=== PATIENT | male | born 1940 | race Caucasian/White ===

== ENCOUNTER 2021-07-21 05:52 | Emergency (ER) | payer MEDICARE, OTHER, SELFPAY ==
[2021-07-21 05:58] VITALS: PULSE 109; RESP 18; TEMP 36.6; O2SAT 95; BMI 25.8
[2021-07-21 06:27] VITALS: BP 182/113; PULSE 103; RESP 17; O2SAT 95
--- NOTE | 2021-07-21 06:29 | ECG_ITS ---
[facility] Test Date: 2021-07-21 Pat Name: Kelton Tolbert Department: Room: Gender: Male Supervisor Plasma: : 1940 Requested By: Elias Segovia Order Number: [id number] Ashley MD: Sung Walker M.D. Measurements Intervals [place] Rate: 92 P: 38 [place]: 184 QRS: -44 QRSD: 86 T: 88 QT: 374 QTc: 463 Interpretive Statements SINUS RHYTHM POSSIBLE LEFT ATRIAL ENLARGEMENT [-0.1mV P-WAVE IN V1/V2] LEFT AXIS DEVIATION [QRS AXIS < -30] LEFT VENTRICULAR HYPERTROPHY AND ST-T CHANGE [VOLTAGE CRITERIA PLUS ST/T ABNORMALITY] POSSIBLE ANTERIOR MYOCARDIAL INFARCTION , OF INDETERMINATE AGE [30 ms Q WAVE IN V3/V4, OR R < 0.2 mV IN V4] Compared to ECG 09/21/2014 20:10:44 ST (T wave) deviation now present Myocardial infarct finding now present Ventricular premature complex(es) no longer present First degree AV block no longer present T-wave abnormality no longer present Electronically Signed On 07-22-2021 7:38:26 WRAPPER LEAF INSPECTOR by Sung Walker M.D. [id number]
--- NOTE | 2021-07-21 06:29 | XRR_ITS ---
PROCEDURE INFORMATION: Exam: XR Chest Exam date and time: 07/21/2021 6:29 AM Age: 81 years old Clinical indication: Other: Mhe; Screening TECHNIQUE: Imaging protocol: XR of the chest. Views: 1 view. COMPARISON: CR Chest 2 views* [id number] 09/22/2014 7:57 AM FINDINGS: Lungs: Mild interstitial prominence without acute airspace disease. Pleural spaces: No pleural effusion. Heart/Mediastinum: No cardiomegaly. Vasculature: Ectasia of the thoracic aorta. Bones/joints: Degenerative change. XR/XR chest 1V portable [id number] IMPRESSION: No acute airspace or pleural disease.
--- NOTE | 2021-07-21 06:35 | W.ED.AMS ---
HPI - Altered Mental Status General: Chief Complaint: Altered Mental Status Stated Complaint: MHE Time Seen by Provider: 07/21/21 05:54 History of Present Illness: HPI narrative: 81-year-old male presents emergency room with [facility]. Patient was found [place]t[address]road he is having auditory and visual hallucinations about seeing cows and building is talking to someone that was not present. Is confused and disoriented did unable to answer questions about time place or person correctly. He has some tangential thinking. Denies any suicidal homicidal ideation. No evidence of trauma he denies striking his head he denies loss consciousness denies needing to harm himself or anyone else. He states he lives at home with the help of some family that stops by occasionally. MD complaint: altered mental status and confusion Onset (ago): unknown Consistency of symptoms: Getting Worse Associated symptoms: Reports auditory hallucinations, visual hallucinations and delusions; Deny depression, homicidal ideation, racing thoughts or suicidal ideation Review of Systems Const: Denies: fever(s), chills, body aches, change in appetite, fatigue or malaise ENMT: Denies: throat pain, ear or mastoid pain, nasal discharge or nasal congestion Card: Denies: chest pain, edema, dyspnea on exertion or orthopnea Resp: Denies: dyspnea, productive cough or non-productive cough GI: Denies: abdominal pain, nausea, vomiting, hematemesis, coffee ground emesis, diarrhea, constipation, bloating, hematochezia or melena : Denies: flank pain, dysuria, urinary frequency or urinary urgency Skin/Breast: Denies: rash or pruritus Psych: Reports: visual hallucinations and auditory hallucinations; Denies: depression, suicidal ideation or homicidal ideation Physical Exam Const: COMMON NORMALS: no acute distress GENERAL APPEARANCE: cooperative and comfortable ORIENTATION/CONSCIOUSNESS: Yes awake, Yes oriented to person, Yes oriented to place and Yes oriented to time HENMT: COMMON NORMALS: normocephalic, atraumatic, hearing grossly normal bilaterally, external ears normal, EAC's normal, TM's normal bilaterally, Normal nasal mucous membranes and turbinates present, moist oral mucous membranes and oropharynx normal HEAD & SCALP: normocephalic and atraumatic NOSE: Normal nasal mucous membranes and turbinates present EXTERNAL EAR: Yes external ears normal EXTERNAL AUDITORY CANAL: EAC's normal TYMPANIC MEMBRANE: TM's normal bilaterally Eye: COMMON NORMALS: Equal, round and reactive pupils present, EOMs intact bilaterally, conjunctivae normal and no scleral icterus CONJUNCTIVA: Yes conjunctivae normal PUPIL: Yes Equal, round and reactive pupils present Neck/C-Spine: COMMON NORMALS: full ROM, no lymphadenopathy, supple and no JVD Lymph: LYMPHATIC: no lymphadenopathy noted and no lymphedema noted Resp: COMMON NORMALS: normal respiratory effort, No retractions, No use of accessory muscles and clear to auscultation bilaterally AUSCULTATION: clear to auscultation bilaterally Cardio: COMMON NORMALS: no JVD, regular rate, regular rhythm and No murmurs present (Cardio) RATE: regular rate RHYTHM: regular rhythm GI: COMMON NORMALS: Soft to palpation and No hepatosplenomegaly present AUSCULTATION: Yes normoactive bowel sounds PALPATION: Yes Soft to palpation, No Tenderness to palpation present (GI), No Guarding due to palpation present (GI) and Yes No hepatosplenomegaly present Extremity: COMMON NORMALS: normal to inspection, capillary refill normal, no clubbing, cyanosis or edema, no calf tenderness and no pedal edema Neuro: SENSORIUM/ORIENTATION: Yes oriented to person, Yes oriented to place and Yes oriented to time Psych: THOUGHT CONTENT: Yes delusions Skin: COMMON NORMALS: no rashes or lesions noted GENERAL SKIN EXAM: no rashes or lesions noted Course Vital Signs: Vital signs: Vital Signs Temperature 98.2 F 07/21/21 07:25 Pulse Rate 75 07/21/21 13:28 Respiratory Rate 18 07/21/21 13:28 Blood Pressure 150/85 07/21/21 13:28 Pulse Oximetry 96 07/21/21 13:28 MDM - Altered Mental Status MDM Narrative: Medical decision making narrative: Patient has some underlying dementia but acutely is having auditory and visual hallucinations on a geriatric psychiatric care. With me arrangements for transfer Dr. Figueroa is receiving. In addition to this he does have what should be controlled. For now recommend starting on Toprol-XL 25 p.o. daily and amlodipine 5 p.o. daily should have follow-up at a later date with primary care doctor to further adjust blood pressure medications. Lab Data: Labs: Lab Results 07/21/21 07/21/21 07/21/21 06:05 06:05 06:05 WBC 15.7 10^3/uL H 10 ^3/uL (4.0-10.0) RBC 5.05 10^6/uL 10^6 /uL (4.1-5.3) Hgb 15.3 g/dL g/dL (11.7-16.6) Hct 46.6 % % (42.0-52.0) MCV 92.3 fl fl (80-94) MCH 30.3 pg pg (28.0-34.0) MCHC 32.8 g/dL g/dL (30.0-36.0) RDW 12.3 % % (12.1-15.1) Plt Count 281 10^3/cmm 10^3 /cmm (130-400) MPV 10.5 fL H fL (7.4-10.4) Neut % (Auto) 83.9 % % Lymph % (Auto) 8.8 % % [place] % (Auto) 6.2 % % Eos % (Auto) 0.3 % % Baso % (Auto) 0.3 % % Neut # (Auto) 13.15 10^3/uL H 1 0^3/uL (1.8-7.7) Lymph # (Auto) 1.4 10^3/uL 10^3/ uL (0.8-4.8) [place] # (Auto) 1.0 10^3/uL H 10^ 3/uL (0.2-0.9) Eos # (Auto) 0.0 10^3/uL 10^3/ uL (0.0-0.8) Baso # (Auto) 0.0 10^3/uL 10^3/ uL (0.0-0.1) Nucleated RBC % (a uto) 0 % % Nucleated RBCs # 0.0 /100WBC /100W BC Sodium 139 mmol/L mmol/L (136-145) Potassium 3.5 mmol/L mmol/L (3.5-5.1) Chloride 103 mmol/L mmol/L (98-107) Carbon Dioxide 27 mmol/L mmol/L (22-29) Anion Gap 12.5 (5-19) BUN 18 mg/dL mg/dL (8-23) Creatinine 1.2 mg/dL mg/dL (0.7-1.2) GFR Calculation Not Reportable Glucose 142 mg/dL H mg/dL (65-115) Calculated Osmolal ity 292 mOsm/kg mOsm/ kg (285-295) Calcium 9.4 mg/dL mg/dL (8.5-10.5) Total Bilirubin 0.5 mg/dL mg/dL (0.15-1.2) AST 30 U/L U/L (0-40) ALT 14 U/L U/L (0-41) Alkaline Phosphata se 91 IU/L IU/L (40-130) Total Protein 7.6 g/dL g/dL (6.6-8.7) Albumin 4.4 g/dL g/dL (3.5-5.2) Globulin 3.2 g/dL g/dL (1.3-4.6) TSH 2.38 uIU/mL uIU/m L Cancelled (0.27-4.20) Free T4 0.96 ng/dL ng/dL (0.82-1.77) Free T3 Urine Color Urine Appearance Urine pH Ur Specific Gravit y Urine Protein Urine Glucose (UA) Urine Ketones Urine Blood Urine Nitrate Urine Bilirubin Urine Urobilinogen Ur Leukocyte Cortney ase Urine RBC Urine WBC Ur Squamous Epith Cells Amorphous Sediment Urine Bacteria Salicylates < 0.3 mg/dL L mg/ dL (3-10) Urine Opiates Scre en Acetaminophen < 5.0 ug/mL L ug/ mL (10-30) Ur Barbiturates Sc reen Ur Phencyclidine S crn Ur Amphetamines Sc reen U Benzodiazepines Scrn Urine Cocaine Scre en U Marijuana (THC) Screen Ethyl Alcohol < 10 mg/dL mg/dL (0-10) Nasal/Oral COVID-1 9 PCR SARS-CoV-2 Ag (Rap id) 07/21/21 07/21/21 07/21/21 06:05 06:50 06:57 WBC RBC Hgb Hct MCV MCH MCHC RDW Plt Count MPV Neut % (Auto) Lymph % (Auto) [place] % (Auto) Eos % (Auto) Baso % (Auto) Neut # (Auto) Lymph # (Auto) [place] # (Auto) Eos # (Auto) Baso # (Auto) Nucleated RBC % (a uto) Nucleated RBCs # Sodium Potassium Chloride Carbon Dioxide Anion Gap BUN Creatinine GFR Calculation Glucose Calculated Osmolal ity Calcium Total Bilirubin AST ALT Alkaline Phosphata se Total Protein Albumin Globulin TSH Free T4 Free T3 3.1 PG/ML PG/ML (2.0-4.4) Urine Color Urine Appearance Urine pH Ur Specific Gravit y Urine Protein Urine Glucose (UA) Urine Ketones Urine Blood Urine Nitrate Urine Bilirubin Urine Urobilinogen Ur Leukocyte Cortney ase Urine RBC Urine WBC Ur Squamous Epith Cells Amorphous Sediment Urine Bacteria Salicylates Urine Opiates Scre en Acetaminophen Ur Barbiturates Sc reen Ur Phencyclidine S crn Ur Amphetamines Sc reen U Benzodiazepines Scrn Urine Cocaine Scre en U Marijuana (THC) Screen Ethyl Alcohol Nasal/Oral COVID-1 9 PCR Cancelled SARS-CoV-2 Ag (Rap id) Negative (Negative) 07/21/21 07/21/21 07:28 07:28 WBC RBC Hgb Hct MCV MCH MCHC RDW Plt Count MPV Neut % (Auto) Lymph % (Auto) [place] % (Auto) Eos % (Auto) Baso % (Auto) Neut # (Auto) Lymph # (Auto) [place] # (Auto) Eos # (Auto) Baso # (Auto) Nucleated RBC % (a uto) Nucleated RBCs # Sodium Potassium Chloride Carbon Dioxide Anion Gap BUN Creatinine GFR Calculation Glucose Calculated Osmolal ity Calcium Total Bilirubin AST ALT Alkaline Phosphata se Total Protein Albumin Globulin TSH Free T4 Free T3 Urine Color Yellow (Yellow) Urine Appearance Clear (CLEAR) Urine pH 6.5 (5-7) Ur Specific Gravit y 1.010 (1.005-1.030) Urine Protein Neg (Negative) Urine Glucose (UA) Norm (Normal) Urine Ketones Negative (Negative) Urine Blood 2+ H (Negative) Urine Nitrate Negative (Negative) Urine Bilirubin Neg (Negative) Urine Urobilinogen Norm mg/dL mg/dL (Negative) Ur Leukocyte Cortney ase Negative (Negative) Urine RBC 0-4 /hpf H /hpf (0-2) Urine WBC 0-4 /hpf H /hpf (0-5) Ur Squamous Epith Cells None /hpf /hpf (0-5) Amorphous Sediment Not Reportable Urine Bacteria None /hpf /hpf (NONE) Salicylates Urine Opiates Scre en Negative ng/mL ng /mL (Negative) Acetaminophen Ur Barbiturates Sc reen Negative ng/mL ng /mL (Negative) Ur Phencyclidine S crn Negative ng/mL ng /mL (Negative) Ur Amphetamines Sc reen Negative ng/mL ng /mL (Negative) U Benzodiazepines Scrn Negative ng/mL ng /mL (Negative) Urine Cocaine Scre en Negative ng/mL ng /mL (Negative) U Marijuana (THC) Screen Negative ng/mL ng /mL (Negative) Ethyl Alcohol Nasal/Oral COVID-1 9 PCR SARS-CoV-2 Ag (Rap id) Discharge Plan Discharge Patient Disposition: Xfer Psychiatric Hosp Clinical Impression: Delirium due to general medical condition, Dementia, Benign essential HTN Condition: Stable Referrals: Allan Peñaloza DO [Primary Care Provider] - Activity Restrictions/Additional Instructions: Recommend that patient continue on Toprol-XL 25 p.o. daily and amlodipine 5 mg daily for blood pressure control. Coding Level of Care Code ED National Account Manager for Vern Fwcortney Exam Comprehensive
[2021-07-21 06:48] LABS: Basophils % 0.3 %; Eosinophils % 0.3 %; Hematocrit 46.6 % (42.0-52.0); Hemoglobin 15.3 g/dL (11.7-16.6); Lymphocytes # 1.4 10^3/uL (0.8-4.8); Lymphocytes % 8.8 %; Mean Corpuscular HGB Conc 32.8 g/dL (30.0-36.0); Mean Corpuscular Hemoglobin 30.3 pg (28.0-34.0); Mean Corpuscular Volume 92.3 fl (80-94); Mean Platelet Volume 10.5 fL (7.4-10.4); Monocytes % 6.2 %; Neutrophils # 13.15 10^3/uL (1.8-7.7); Neutrophils % 83.9 %; Nucleated Red Blood Cells % 0 %; Platelet Count 281 10^3/cmm (130-400); Red Blood Count 5.05 10^6/uL (4.1-5.3); Red Cell Distribution Width 12.3 % (12.1-15.1); White Blood Count 15.7 10^3/uL (4.0-10.0)
[2021-07-21 07:06] LABS: Alanine Aminotransferase 14 U/L (0-41); Albumin Level 4.4 g/dL (3.5-5.2); Alkaline Phosphatase 91 IU/L (40-130); Anion Gap 12.5 (5-19); Aspartate Amino Transferase 30 U/L (0-40); Blood Urea Nitrogen 18 mg/dL (8-23); Calcium 9.4 mg/dL (8.5-10.5); Carbon Dioxide 27 mmol/L (22-29); Chloride 103 mmol/L (98-107); Globulin 3.2 g/dL (1.3-4.6); Glucose 142 mg/dL (65-115); Osmolality Calculated 292 mOsm/kg (285-295); Potassium 3.5 mmol/L (3.5-5.1); Sodium 139 mmol/L (136-145); Thyroid Stimulating Hormone 2.38 uIU/mL (0.27-4.20); Total Bilirubin 0.5 mg/dL (0.15-1.2); Total Protein 7.6 g/dL (6.6-8.7)
[2021-07-21 07:07] LABS: Acetaminophen < 5.0 ug/mL (10-30); Alcohol Level < 10 mg/dL (0-10); Salicylate < 0.3 mg/dL (3-10)
[2021-07-21 07:25] VITALS: BP 171/102; PULSE 102; RESP 18; TEMP 36.8; O2SAT 94
[2021-07-21 07:45] LABS: Amphetamines Screen Urine Negative (Negative); Barbiturates Screen Urine Negative (Negative); Benzodiazepines Screen Urine Negative (Negative); Cocaine Screen Urine Negative (Negative); Opiate Screen Urine Negative (Negative); PCP Screen Urine Negative (Negative); THC Screen Urine Negative (Negative)
[2021-07-21 07:57] LABS: SARS Covid-2 Antigen Negative (Negative)
--- NOTE | 2021-07-21 08:54 | CT_ITS ---
WS: [id number] CT HEAD NONCONTRAST HISTORY: altered mental status TECHNIQUE: Contiguous axial imaging performed through the brain in 2.5 mm imaging. Bone and soft tiss ue windows. Sagittal and coronal reformats reviewed. All CT scans at [facility] use at least one of these dose optimization techniques: automated exposure control; mA and/or kV adjustment per pa tient size (includes targeted exams where dose is matched to clinical indication); or iterative recon struction. DLP: 872.94 mGy.cm COMPARISON: 09/21/2014 No acute intracranial hemorrhage, midline shift or mass effect. Severe atrophy and severe chronic white matter ischemic changes. There are a few scattered foci withi n the cerebellum which are probably calcifications. No mass effect. Ventricles: Ventricles are prominent which is probably on the basis of central and peripheral atroph y. Scattered calcifications in the cavernous carotid arteries. Paranasal sinuses: As visualized are clear. Mastoid air cells: Well pneumatized. Calvarium and scalp: Skull is intact with no soft tissue edema or swelling. CT/CT head wo con* [id number] IMPRESSION: 1. No acute intracranial hemorrhage or edema. 2. Severe atrophy and chronic microvascular ischemic changes. 3. Ventriculomegaly is likely on the basis of central and peripheral atrophy.
[2021-07-21 09:36] LABS: Free T4 Free Thyroxine 0.96 ng/dL (0.82-1.77)
[2021-07-21 09:58] LABS: T3 Free 3.1 PG/ML (2.0-4.4)
--- NOTE | 2021-07-21 10:38 | DCPLANNER ---
Collin Sue called and stated he is seeking emergency guardianship on pt and would like an update for admission or transfer on pt. This CM called ER and Kay stated pt would be transferred. Collin was called back and a message was left stating pt would be transferred and location unknown at this time.
[2021-07-21] MEDS: metoprolol tartrate 25 mg Tablet PO (11:23)
[2021-07-21] MEDS: amlodipine 5 mg Tablet PO (11:23)
[2021-07-21 11:44] LABS: Add Urine Culture? No; Add Urine Microscopic? YES; Bilirubin Urine Neg (Negative); Blood Urine 2+ (Negative); Glucose Urine UA Norm (Normal); Ketones Urine Negative (Negative); Leukocyte Esterase Urine Negative (Negative); Nitrate Urine Negative (Negative); Protein Urine Neg (Negative); RBC Urine 0-4 /hpf (0-2); Urine Appearance Clear (CLEAR); Urine Color Yellow (Yellow); Urobilinogen Urine Norm (Negative); WBC Urine 0-4 /hpf (0-5); pH Urine 6.5 (5-7)
--- NOTE | 2021-07-21 13:18 | PC.NURSE ---
Called Lexy REYES, [facility], [phone] and gave report.
[2021-07-21 13:28] VITALS: BP 150/85; PULSE 75; RESP 18; O2SAT 96
[2021-07-22 11:51] LABS: Quest SARS-CoV-2 RNA NOT DETECTED (NOT DETECTED)
== END 2021-07-21 14:44 ==
PROVIDERS: Emergency Provider Family Medicine; PCP Internal Medicine
DX: F03.90 Unspecified dementia, unspecified severity, without behavioral disturbance, psychotic disturbance, mood disturbance, and anxiety (principal); F05 Delirium due to known physiological condition; I10 Essential (primary) hypertension; Z20.822 Contact with and (suspected) exposure to COVID-19
CPT/HCPCS: 70450; 71045; 80053; 80306; 80307; 81001; 84439; 84443; 84481; 85025; 87426; 87635; 93005; 99285

== ENCOUNTER 2022-06-12 13:25 | Inpatient (IN) | payer MEDICARE, OTHER, SELFPAY ==
[2022-06-12] VITALS (103 sets, daily range): BP systolic 74–185; BP diastolic 45–116; PULSE 31–111; RESP 11–28; TEMP 36–36.4; O2SAT 83–100
--- NOTE | 2022-06-12 13:48 | CTR_ITS ---
PROCEDURE INFORMATION: Exam: CT Abdomen And Pelvis With Contrast Exam date and time: 06/12/2022 3:25 PM Age: 81 years old Clinical indication: Abdominal pain; Additional info: Rectal bleeding TECHNIQUE: Imaging protocol: Computed tomography of the abdomen and pelvis with contrast. Radiation optimization: All CT scans at this facility use at least one of these dose optimization techniques: automated exposure control; mA and/or kV adjustment per patient size (includes targeted exams where dose is matched to clinical indication); or iterative reconstruction. Contrast material: OMNI 350; Contrast volume: 100 ml; Contrast route: INTRAVENOUS (IV); COMPARISON: CR (CHEST, ) 07/21/2021 6:41 AM RADIATION DOSE METRICS: Total DLP (mGy-cm): 743.43 FINDINGS: Lungs: Minimal linear scarring-atelectasis both lung bases. Heart: Mild cardiomegaly with coronary calcification. Mediastinal space: Small hiatal hernia which may be paraesophageal type. Liver: No enlargement or cirrhosis. Well-defined hypodense lesion in the posterior left lobe, nonspecific and too small to characterize measuring 6 mm. Gallbladder and bile ducts: Normal. No calcified stones. No ductal dilation. Pancreas: Normal. No ductal dilation. Spleen: Normal spleen size with calcified splenic granulomas. A few tiny hypodense splenic lesions are noted measuring a few mm, nonspecific but are most likely benign. Adrenal glands: Normal. No mass. Kidneys and ureters: Tiny hypodense right upper pole renal lesion measuring 3 mm, too small to characterize but is likely simple cyst. Stomach and bowel: Moderate colonic stool burden with no bowel obstruction or pneumatosis. Colonic diverticulosis. Bowel wall assessment is limited due to lack of luminal distention however there is probable short segment of proximal sigmoid mural thickening. Considerations include contraction/spasm/hypertrophy versus nonspecific colitis. Neoplastic disease should also be excluded. Follow-up assessment with luminal bowel contrast or endoscopy should be considered. There is also moderate fluid distention of the rectum with probable minimal wall thickening which may represent mild proctitis and diarrhea. Rectal neoplasm can not be excluded. No obvious imaging signs of acute diverticulitis. Appendix: No evidence of appendicitis. Intraperitoneal space: Unremarkable. No free air. No significant fluid collection. Vasculature: No abdominal aortic aneurysm. Lymph nodes: No enlarged lymph nodes. Urinary bladder: Unremarkable as visualized. Reproductive: Lwnj-mh-kflcnrsl prostate enlargement, with nodular contour. Bones/joints: Multilevel vertebral disc degeneration and endplate osteophytes. Minimal L4-L5 spondylolisthesis, most likely chronic/related to facet arthropathy No acute osseous findings otherwise. Soft tissues: No acute findings. CT/CT abdomen pelvis w con* [id number] IMPRESSION: 1. Colonic diverticulosis without diverticulitis, free air or pneumatosis. However there is probable mural thickening of the proximal sigmoid colon. See discussion above. 2. Fluid distention of rectum with probable mild rectal wall thickening. Please also refer to discussion above. No evidence of bowel obstruction otherwise. Follow-up assessment or endoscopy should be considered for the above findings. 3. Prostate enlargement with nodular contour. 4. Small hiatal hernia and coronary calcification. Other nonacute findings as above. COMMENTS: Consistent with the [employer]'s Incidental Findings Committee white paper (J Am Valente Radiol 2018): Any incidental renal lesion less than 1 cm or classified as too small to characterize, or any incidental cystic renal lesion characterized as simple-appearing, is likely benign. No follow-up imaging is recommended for these lesions per consensus recommendations based on imaging criteria.
--- NOTE | 2022-06-12 13:50 | ED_ITS ---
HPI - GI Bleed General: Chief complaint: GI Bleed Stated complaint: blood in stool Time Seen by Provider: 06/12/22 13:28 Source: patient and old records reviewed Mode of arrival: EMS Limitations: altered mental status (Dementia) History of Present Illness: This patient was transported by EMS from [facility]. [facility] staff noted that he had a bloody bowel movement this morning and therefore directed to the ED. The patient is aware he had a loose stool this morning and but but is not sure where there was blood in his stool or not. He denied any painful bowel movement, constipation, abdominal pain etc. He denied any other concomitant symptoms at this time. He states he feels better today than he did yesterday. He denies any chest pain shortness of breath etc. He is unaware of any similar occurrence of rectal bleeding states he has had an appendectomy in the past. MD complaint: gross hematochezia Associated symptoms: Reports no associated symptoms; Denies abdominal pain, chills, fever(s), headache(s), rash or vomiting Review of Systems Const: Denies: fever(s) or chills Eyes: Denies: change in vision ENMT: Denies: throat pain or odynophagia Card: Denies: chest pain, palpitations or dyspnea on exertion Resp: Denies: productive cough, non-productive cough or wheezing GI: Reports: hematochezia; Denies: abdominal pain or vomiting : Denies: flank pain, difficulty urinating, dysuria or urinary frequency Musc: Denies: neck pain, back pain, extremity pain or extremity swelling Skin/Breast: Denies: rash Neuro: Denies: headache(s), numbness in extremities or weakness in extremities Physical Exam Narrative: EXAM NARRATIVE: Patient makes good eye contact. He is alert and oriented to self. Answers questions readily and generally in a goal-directed fashion. Const: COMMON NORMALS: no acute distress, average body habitus and healthy appearing GENERAL APPEARANCE: comfortable ORIENTATION/CONSCIOUSNESS: Yes awake and Yes oriented to person OTHER: He is unaware of his exact location and is unclear as to the time of the year. HENMT: COMMON NORMALS: normocephalic, atraumatic, Normal nasal mucous membranes and turbinates present, moist oral mucous membranes and oropharynx normal HEAD & SCALP: normocephalic and atraumatic NOSE: Normal nasal mucous membranes and turbinates present Eye: COMMON NORMALS: Equal, round and reactive pupils present, EOMs intact bilaterally, conjunctivae normal and no scleral icterus CONJUNCTIVA: Yes conjunctivae normal PUPIL: Yes Equal, round and reactive pupils present Neck/C-Spine: COMMON NORMALS: full ROM, no lymphadenopathy and no JVD Chest: COMMONS NORMALS: normal inspection of the chest Resp: COMMON NORMALS: normal respiratory effort, No use of accessory muscles and clear to auscultation bilaterally EFFORT & INSPECTION: Yes able to speak in complete sentences AUSCULTATION: clear to auscultation bilaterally Cardio: COMMON NORMALS: no JVD, regular rate, regular rhythm, No murmurs present (Cardio) and Peripheral pulses 2+ throughout RATE: regular rate RHYTHM: regular rhythm PERIPHERAL PULSES: Peripheral pulses 2+ throughout GI: COMMON NORMALS: Normal to inspection, nondistended, normoactive bowel sounds present, Soft to palpation, non-tender, No hepatosplenomegaly present and no masses PALPATION: Yes Soft to palpation and Yes No hepatosplenomegaly present RECTAL EXAM: Yes visual inspection normal, Yes normal sphincter tone, Yes heme positive stool (Some bloody mucus on examining finger as well), No hemorrhoids and No Anal fissure(s) present : COMMON NORMALS: Yes no CVA tenderness BLADDER/KIDNEY EXAM: Yes no CVA tenderness Back/Pelvis: COMMON NORMALS: no CVA tenderness, thoracic and lumbar spine n ormal to inspection, no thoracic nor lumbar tenderness and thoraco-lumbar ROM normal Extremity: COMMON NORMALS: normal to inspection, full ROM, capillary refill normal and no calf tenderness Neuro: COMMON NORMALS: moves all extremities, no focal motor deficits and no sensory deficits noted SENSORIUM/ORIENTATION: Yes oriented to person Psych: COMMON NORMALS: cooperative Skin: COMMON NORMALS: no rashes or lesions noted, turgor normal and no petechiae GENERAL SKIN EXAM: no rashes or lesions noted and turgor normal Course Consultations: Consultation #1: Discussed with Dr. Flores attending hospitalist who agreed to admit patient. Time: 16:25 Consultation #2: Discussed with Dr. Dang computer salesperson retail surgery and endoscopist who agreed to consul t. Time: 16:26 Vital Signs: Vital signs: Vital Signs Pulse Rate 55 L 06/12/22 15:55 Respiratory Rate 13 06/12/22 15:55 Blood Pressure 142/85 06/12/22 15:30 Pulse Oximetry 99 06/12/22 15:55 Oxygen Delivery Me thod 06/12/22 13:32 MDM - GI Bleed Medical Decision Making Long-term care facility resident with single episode of bloody stool today. Clinical examination did not reveal any abdominal pain tenderness or other concerns no peritoneal signs etc. His rectal examination revealed no evidence of fissure or hemorrhoids but was guaiac positive. Imaging showed di verticulosis without any other significant pathology. His hemoglobin appears to be down approximately 4 g from his baseline that we have in the chart but no active bleeding since arrival to the emergency department. He is hemodynamically stable will be admitted to the hospital for continued monitoring serial hemoglobin and surgery consultation. Medical Records I reviewed the patient's medical records. Lab Data I reviewed the patient's lab results. : 06/12/22 14:17 06/12/22 14:17 Radiology Impressions Abdomen/Pelvis CT 06/12/22 13:48 IMPRESSION: 1. Colonic diverticulosis without diverticulitis, free air or pneumatosis. However there is probable mural thickening of the proximal sigmoid colon. See discussion above. 2. Fluid distention of rectum with probable mild rectal wall thickening. Please also refer to discussion above. No evidence of bowel obstruction otherwise. Follow-up assessment or endoscopy should be considered for the above findings. 3. Prostate enlargement with nodular contour. 4. Small hiatal hernia and coronary calcification. Other nonacute findings as above. COMMENTS: Consistent with the [employer]'s Incidental Findings Committee white paper (J Am Valente Radiol 2018): Any incidental renal lesion less than 1 cm or classified as too small to characterize, or any incidental cystic renal lesion characterized as simple-appearing, is likely benign. No follow-up imaging is recommended for these lesions per consensus recommendations based on imaging criteria. Laboratory Results WBC 7.6 10^3/uL (4.0-10.0) 06/12/22 14:17 RBC 3.81 10^6/uL (4.1-5.3) L 06/12/22 14:17 Hgb 11.8 g/dL (11.7-16.6) 06/12/22 14:17 Hct 36.2 % (42.0-52.0) L 06/12/22 14:17 MCV 95.0 fl (80-94) H 11/01/22 14:17 MCH 31.0 pg (28.0-34.0) 06/12/22 14:17 MCHC 32.6 g/dL (30.0-36.0) 06/12/22 14:17 RDW 12.5 % (12.1-15.1) 06/12/22 14:17 Plt Count 231 10^3/cmm (130-400) 06/12/22 14:17 MPV 10.4 fL (7.4-10.4) 06/12/22 14:17 Neut % (Auto) 71.1 % 06/12/22 14:17 Lymph % (Auto) 20.2 % 06/12/22 14:17 [place] % (Auto) 5.8 % 06/12/22 14:17 Eos % (Auto) 1.9 % 06/12/22 14:17 Baso % (Auto) 0.5 % 06/12/22 14:17 Neut # (Auto) 5.37 10^3/uL (1.8-7.7) 06/12/22 14:17 Lymph # (Auto) 1.5 10^3/uL (0.8-4.8) 06/12/22 14:17 [place] # (Auto) 0.4 10^3/uL (0.2-0.9) 06/12/22 14:17 Eos # (Auto) 0.1 10^3/uL (0.0-0.8) 06/12/22 14:17 Baso # (Auto) 0.0 10^3/uL (0.0-0.1) 06/12/22 14:17 Nucleated RBC % (auto) 0 % 06/12/22 14:17 Nucleated RBCs # 0.0 /100WBC 06/12/22 14:17 PT 14.20 SECONDS (12.1-14.9) 06/12/22 14:17 INR 1.07 (0.8-1.2) 06/12/22 14:17 APTT 30.4 SECONDS (23.9-36.7) 06/12/22 14:17 Sodium 137 mmol/L (136-145) 06/12/22 14:17 Potassium 4.3 mmol/L (3.5-5.1) 06/12/22 14:17 Chloride 104 mmol/L (98-107) 06/12/22 14:17 Carbon Dioxide 23 mmol/L (22-29) 06/12/22 14:17 Anion Gap 14.3 (5-19) 06/12/22 14:17 BUN 24 mg/dL (8-23) H 06/12/22 14:17 Creatinine 1.3 mg/dL (0.7-1.2) H 06/12/22 14:17 GFR Calculation Not Reportable 06/12/22 14:17 Glucose 111 mg/dL (65-115) 06/12/22 14:17 Calculated Osmolality 289 mOsm/kg (285-295) 06/12/22 14:17 Calcium 9.3 mg/dL (8.5-10.5) 06/12/22 14:17 Total Bilirubin 0.2 mg/dL (0.15-1.2) 06/12/22 14:17 AST 14 U/L (0-40) 06/12/22 14:17 ALT 8 U/L (0-41) 06/12/22 14:17 Alkaline Phosphatase 82 U/L (40-130) 06/12/22 14:17 Total Protein 6.7 g/dL (6.6-8.7) 06/12/22 14:17 Albumin 3.6 g/dL (3.5-5.2) 06/12/22 14:17 Globulin 3.1 g/dL (1.3-4.6) 06/12/22 14:17 Discharge Plan Discharge Patient Disposition: Admitted As Inpatient Clinical Impression: Lower gastrointestinal hemorrhage Condition: Stable Prescriptions: No Action Tylenol 325 mg Tablet 650 mg PO Q4H PRN (Reason: Pain) donepezil 5 mg Tablet 5 mg PO DAILY Keppra 500 mg Tablet 500 mg PO BID Zyprexa 2.5 mg Tablet 2.5 mg PO BID Milk of Magnesia 400 mg/5 mL Suspension 30 ml PO DAILY PRN (Reason: Constipation) amlodipine 10 mg Tablet 10 mg PO DAILY Dulcolax (bisacodyl) 10 mg Suppository 10 mg DC DAILY PRN (Reason: Constipation) Mirapex 0.25 mg Tablet 0.25 mg PO BEDTIME aspirin 81 mg Tablet,Chewable 81 mg PO DAILY Ativan 1 mg Tablet 1 mg PO Q6H PRN (Reason: Anxiety) Miralax 17 gram/dose Powder 17 g PO DAILY Namenda 5 mg Tablet 5 mg PO QAM metoprolol tartrate 25 mg Tablet 25 mg PO BID Referrals: Allan Peñaloza DO [Primary Care Provider] - Coding Level of Care Code ED Medical Claims Examiner for Chg Fwd Exam Comprehensive
[2022-06-12 14:28] LABS: Basophils % 0.5 %; Eosinophils # 0.1 10^3/uL (0.0-0.8); Eosinophils % 1.9 %; Hematocrit 36.2 % (42.0-52.0); Hemoglobin 11.8 g/dL (11.7-16.6); Lymphocytes # 1.5 10^3/uL (0.8-4.8); Lymphocytes % 20.2 %; Mean Corpuscular HGB Conc 32.6 g/dL (30.0-36.0); Mean Platelet Volume 10.4 fL (7.4-10.4); Monocytes # 0.4 10^3/uL (0.2-0.9); Monocytes % 5.8 %; Neutrophils # 5.37 10^3/uL (1.8-7.7); Neutrophils % 71.1 %; Nucleated Red Blood Cells % 0 %; Platelet Count 231 10^3/cmm (130-400); Red Blood Count 3.81 10^6/uL (4.1-5.3); Red Cell Distribution Width 12.5 % (12.1-15.1); White Blood Count 7.6 10^3/uL (4.0-10.0)
[2022-06-12 14:40] LABS: INR 1.07 (0.8-1.2)
[2022-06-12 14:42] LABS: Partial Thromboplastin Time 30.4 SECONDS (23.9-36.7)
[2022-06-12 14:44] LABS: Alanine Aminotransferase 8 U/L (0-41); Albumin Level 3.6 g/dL (3.5-5.2); Alkaline Phosphatase 82 U/L (40-130); Anion Gap 14.3 (5-19); Aspartate Amino Transferase 14 U/L (0-40); Blood Urea Nitrogen 24 mg/dL (8-23); Calcium 9.3 mg/dL (8.5-10.5); Carbon Dioxide 23 mmol/L (22-29); Chloride 104 mmol/L (98-107); Globulin 3.1 g/dL (1.3-4.6); Glucose 111 mg/dL (65-115); Osmolality Calculated 289 mOsm/kg (285-295); Potassium 4.3 mmol/L (3.5-5.1); Sodium 137 mmol/L (136-145); Total Bilirubin 0.2 mg/dL (0.15-1.2); Total Protein 6.7 g/dL (6.6-8.7)
[2022-06-12] MEDS: iohexol 350 mg/mL 500 mL Btl (per mL) IV (15:26)
--- NOTE | 2022-06-12 16:29 | ED_ITS ---
HPI - GI Bleed General: Chief complaint: GI Bleed Stated complaint: blood in stool Time Seen by Provider: 06/12/22 13:28 Source: patient and old records reviewed Mode of arrival: EMS Limitations: altered mental status (Dementia) History of Present Illness: complaint: gross hematochezia PFS ED PFSH: Medical History Anxiety CVA (cerebral vascular accident) Dementia DNR (do not resuscitate) Hypertension Restless leg syndrome Social History Smoking and tobacco status: unknown if ever smoked Alcohol intake: unknown Substance/Drug Use: unknown Household members: other Housing: [facility] Course Vital Signs: Vital signs: Vital Signs Temperature 98.5 F 06/15/22 11:56 Pulse Rate 86 06/15/22 11:56 Respiratory Rate 16 06/15/22 11:56 Blood Pressure 128/76 06/15/22 11:56 Pulse Oximetry 95 06/15/22 11:56 Oxygen Delivery Me thod 06/15/22 04:00 MDM - GI Bleed Lab Data : 06/15/22 03:44 06/14/22 04:13 Radiology Impressions Abdomen/Pelvis CT 06/12/22 13:48 IMPRESSION: 1. Colonic diverticulosis without diverticulitis, free air or pneumatosis. However there is probable mural thickening of the proximal sigmoid colon. See discussion above. 2. Fluid distention of rectum with probable mild rectal wall thickening. Please also refer to discussion above. No evidence of bowel obstruction otherwise. Follow-up assessment or endoscopy should be considered for the above findings. 3. Prostate enlargement with nodular contour. 4. Small hiatal hernia and coronary calcification. Other nonacute findings as above. COMMENTS: Consistent with the [employer]'s Incidental Findings Committee white paper (J Am Valente Radiol 2018): Any incidental renal lesion less than 1 cm or classified as too small to characterize, or any incidental cystic renal lesion characterized as simple-appearing, is likely benign. No follow-up imaging is recommended for these lesions per consensus recommendations based on imaging criteria. Laboratory Results WBC 7.6 10^3/uL (4.0-10.0) 06/12/22 14:17 RBC 3.81 10^6/uL (4.1-5.3) L 06/12/22 14:17 Hgb 11.8 g/dL (11.7-16.6) 06/12/22 14:17 Hct 36.2 % (42.0-52.0) L 06/12/22 14:17 MCV 95.0 fl (80-94) H 06/12/22 14:17 MCH 31.0 pg (28.0-34.0) 06/12/22 14:17 MCHC 32.6 g/dL (30.0-36.0) 06/12/22 14:17 RDW 12.5 % (12.1-15.1) 06/12/22 14:17 Plt Count 231 10^3/cmm (130-400) 06/12/22 14:17 MPV 10.4 fL (7.4-10.4) 06/12/22 14:17 Neut % (Auto) 71.1 % 06/12/22 14:17 Lymph % (Auto) 20.2 % 06/12/22 14:17 [place] % (Auto) 5.8 % 06/12/22 14:17 Eos % (Auto) 1.9 % 06/12/22 14:17 Baso % (Auto) 0.5 % 06/12/22 14:17 Neut # (Auto) 5.37 10^3/uL (1.8-7.7) 06/12/22 14:17 Lymph # (Auto) 1.5 10^3/uL (0.8-4.8) 06/12/22 14:17 [place] # (Auto) 0.4 10^3/uL (0.2-0.9) 06/12/22 14:17 Eos # (Auto) 0.1 10^3/uL (0.0-0.8) 06/12/22 14:17 Baso # (Auto) 0.0 10^3/uL (0.0-0.1) 06/12/22 14:17 Nucleated RBC % (auto) 0 % 06/12/22 14:17 Nucleated RBCs # 0.0 /100WBC 06/12/22 14:17 PT 14.20 SECONDS (12.1-14.9) 06/12/22 14:17 INR 1.07 (0.8-1.2) 06/12/22 14:17 APTT 30.4 SECONDS (23.9-36.7) 06/12/22 14:17 Sodium 137 mmol/L (136-145) 06/12/22 14:17 Potassium 4.3 mmol/L (3.5-5.1) 06/12/22 14:17 Chloride 104 mmol/L (98-107) 06/12/22 14:17 Carbon Dioxide 23 mmol/L (22-29) 06/12/22 14:17 Anion Gap 14.3 (5-19) 06/12/22 14:17 BUN 24 mg/dL (8-23) H 06/12/22 14:17 Creatinine 1.3 mg/dL (0.7-1.2) H 06/12/22 14:17 GFR Calculation Not Reportable 06/12/22 14:17 Glucose 111 mg/dL (65-115) 06/12/22 14:17 Calculated Osmolality 289 mOsm/kg (285-295) 06/12/22 14:17 Calcium 9.3 mg/dL (8.5-10.5) 06/12/22 14:17 Iron 81 ug/dL (59-158) 06/12/22 14:17 TIBC 244 mcg/dl 06/12/22 14:17 % Saturation 33.1 % (20-50) 06/12/22 14:17 Unsat Iron Binding 163 ug/dL (112-347) 06/12/22 14:17 Total Bilirubin 0.2 mg/dL (0.15-1.2) 06/12/22 14:17 AST 14 U/L (0-40) 06/12/22 14:17 ALT 8 U/L (0-41) 06/12/22 14:17 Alkaline Phosphatase 82 U/L (40-130) 06/12/22 14:17 Total Protein 6.7 g/dL (6.6-8.7) 06/12/22 14:17 Albumin 3.6 g/dL (3.5-5.2) 06/12/22 14:17 Globulin 3.1 g/dL (1.3-4.6) 06/12/22 14:17 Vitamin B12 211 pg/mL (232-1245) L 06/12/22 14:17 Folate 7.5 ng/mL (4.5-32.2) 06/12/22 14:17 TSH 1.54 uIU/mL (0.27-4.20) 06/12/22 14:17 Blood Type O Positive 06/12/22 15:08 Rho(D) Type Positive 06/12/22 15:08 Antibody Screen Negative 06/12/22 15:08 Crossmatch See Detail 06/12/22 15:08 Discharge Plan Discharge Patient Disposition: Admitted As Inpatient Admit Provider: Duncan Borrego Clinical Impression: Lower gastrointestinal hemorrhage Condition: Stable Discharge Diet: Usual diet Discharge Activity: Resume usual activity and Increase activity as tolerated Coding Level of Care Code ED Manufacturing Storeperson for Vern Lopez
--- NOTE | 2022-06-12 16:53 | P.HP_ITS ---
Providers/Chief Complaint Primary Care Provider: Allan Peñaloza DO Chief Complaint: blood in stool History of Present Illness Kelton Tolbert is a 81 year old male with past medical history of dementia, anxiety, hypertension, CVA who is a half-way resident was brought into the ER today because he was found to have blood mixed in bowel movement. As per the patient who was fairly confused he started having multiple episodes of diarrhea yesterday evening without any abdominal pain, nausea or vomiting. Patient is alert to self, reason to being in the hospital, place but is occasionally getting confused, fidgety. Review of Systems General: Reports: ROS unobtainable due to mental status Medications/Allergies Home Medications Medication Instructions Recorded Confirmed Last Taken Type acetaminophen 325 mg tablet 650 mg PO Q4H PRN Pain 06/12/22 06/12/22 Unknown History (Tylenol) amlodipine 10 mg tablet 10 mg PO DAILY 06/12/22 06/12/22 Unknown History aspirin 81 mg chewable tablet 81 mg PO DAILY 06/12/22 06/12/22 Unknown History bisacodyl 10 mg rectal suppository 10 mg ME DAILY PRN Constipation 06/12/22 06/12/22 Unknown History (Dulcolax (bisacodyl)) donepezil 5 mg tablet 5 mg PO DAILY 06/12/22 06/12/22 Unknown History levetiracetam 500 mg tablet 500 mg PO BID 06/12/22 06/12/22 Unknown History (Keppra) lorazepam 1 mg tablet (Ativan) 1 mg PO Q6H PRN Anxiety 06/12/22 06/12/22 Unknown History magnesium hydroxide 400 mg/5 mL 30 ml PO DAILY PRN Constipation 06/12/22 06/12/22 Unknown History oral suspension (Milk of Magnesia) memantine 5 mg tablet (Namenda) 5 mg PO QAM 06/12/22 06/12/22 Unknown History metoprolol tartrate 25 mg tablet 25 mg PO BID 06/12/22 06/12/22 Unknown History olanzapine 2.5 mg tablet (Zyprexa) 2.5 mg PO BID 06/12/22 06/12/22 Unknown History polyethylene glycol 3350 17 17 g PO DAILY 06/12/22 06/12/22 Unknown History gram/dose oral powder (Miralax) pramipexole 0.25 mg tablet 0.25 mg PO BEDTIME 06/12/22 06/12/22 Unknown History (Mirapex) Allergies Allergy/AdvReac Type Severity Reaction Status Date / Time No Known Allergies Allergy Verified 07/21/21 05:58 PFSH Acute PFSH: Medical History (Updated 06/12/22 @ 17:06 by Duncan Borrego MD) Anxiety CVA (cerebral vascular accident) Dementia DNR (do not resuscitate) Hypertension Restless leg syndrome Social History (Updated 06/12/22 @ 17:07 by Duncan Borrego MD) Smoking and tobacco status: unknown if ever smoked Alcohol intake: unknown Substance/Drug Use: unknown Household members: other Housing: Correction Vitals/I&O/Wt Last Vital Signs Pulse 55 L 06/12/22 15:55 Resp 13 06/12/22 15:55 BP 142/85 06/12/22 15:30 Pulse Ox 99 06/12/22 15:55 O2 Del Method 06/12/22 13:32 Physical Exam Narrative: General: No acute distress, AO x 2-3 HEENT: PERRLA, pupils bilaterally equal and reactive Chest: Normal vesicular breath sounds, no added sounds, equal good air entry bilaterally CVS: S1-S2 regular, no murmurs, no tachycardia, no gallops, no rubs Abdomen: Soft, nontender, no organomegaly, bowel sounds present Neuro: No focal deficits, no facial deformity, AO x3, power 5/5 in all limbs Data : 06/12/22 14:17 06/12/22 14:17 A&P Assessment and plan (1) Hematochezia: Surgery consulted from the ER for possible EGD and colonoscopy. Protonix 40 mg IV twice daily. For now monitor hemoglobin daily. Stool studies. CT abdomen pelvis appreciated. Negative for any diverticulitis or infectious cause. For now hold off on antibiotics. (2) Lower gastrointestinal hemorrhage: (3) Hypertension: Goal blood pressure less than 140/90 mmHg. Continue with home dose of amlodipine. Hold off on metoprolol given bradycardia. (4) Bradycardia: (5) Dementia: Frequent orientation. Might need sitter. Continue with home dose of Keppra, donepezil, Namenda, olanzapine Plan DNR/DNI as per the paperwork from half-way. NPO. Protonix will suffice as PUD prophylaxis SCDs for DVT prophylaxis Attestations Medical Necessity Statement*: Admission for more than 2 midnights GI bleed with hematochezia Time Spent in Patient Care: Greater than 35 minutes Coding Level of Care Code Acute Certified Bench Jeweler Technician for g Fwd Diagnoses Hematochezia K92.1 Lower gastrointestinal hemorrhage K92.2 Hypertension I10 Bradycardia R00.1 Dementia F03.90
[2022-06-12 17:28] LABS: Thyroid Stimulating Hormone 1.54 uIU/mL (0.27-4.20)
[2022-06-12] MEDS: dextrose 5%-sod chloride 0.45% 1,000 ML 50 ML IV (17:41)
[2022-06-12] MEDS: pantoprazole 40 mg SDV 80 MG IVP (17:41)
[2022-06-12] MEDS: atropine 0.1 mg/mL Syr 10 mL 0.5 MG IVP (19:20)
[2022-06-12] MEDS: OLANZapine 10 mg VIAL 5 MG IM (20:05)
[2022-06-12 20:32] LABS: Hematocrit 36.5 % (42.0-52.0); Hemoglobin 11.9 g/dL (11.7-16.6)
--- NOTE | 2022-06-12 20:38 | PC.NURSE ---
Per provider- dr Roman transfuse 2 units prbc now d/t pt stability. Verified 2 units of O pos with Mayela Orantes RN and Dayo Garcia rn.
--- NOTE | 2022-06-12 23:15 | PC.NURSE ---
Transfer Note Patient transferred to ICU from ER via stretcher. Handoff received from Rayne. Patient oriented to environment and equipment. Covering service notified. Orders reviewed and will continue to monitor. Family notified. Patient transferred on room air, no wounds or skin issues noted at this time. Upon arrival to ICU patient disoriented to time, place and situation. He is verbally aggressive, raising voice and shouting at the staff-attempts made by this nurse to verbally de-escalate patient.
[2022-06-12] MEDS: ferrous gluconate 324 mg Tablet PO (23:41)
[2022-06-12] MEDS: levETIRAcetam 500 mg Tablet PO (23:41)
[2022-06-12] MEDS: pramipexole 0.25 mg Tablet PO (23:41)
[2022-06-13] VITALS (75 sets, daily range): BP systolic 108–171; BP diastolic 64–114; PULSE 59–103; RESP 12–27; TEMP 36.4–36.9; O2SAT 91–100; BMI 27.1
[2022-06-13 04:11] LABS: Iron 81 ug/dL (59-158); Percent Saturation 33.1 % (20-50); Total Iron Binding Capacity 244 mcg/dl; Unsaturated Iron Binding 163 ug/dL (112-347)
[2022-06-13 04:14] LABS: Basophils % 0.3 %; Eosinophils % 0.4 %; Hemoglobin 11.3 g/dL (11.7-16.6); Lymphocytes # 1.1 10^3/uL (0.8-4.8); Lymphocytes % 10.8 %; Mean Corpuscular HGB Conc 32.3 g/dL (30.0-36.0); Mean Corpuscular Hemoglobin 30.5 pg (28.0-34.0); Mean Corpuscular Volume 94.6 fl (80-94); Mean Platelet Volume 10.7 fL (7.4-10.4); Monocytes # 0.7 10^3/uL (0.2-0.9); Monocytes % 6.5 %; Neutrophils # 8.58 10^3/uL (1.8-7.7); Neutrophils % 81.4 %; Nucleated Red Blood Cells % 0 %; Platelet Count 189 10^3/cmm (130-400); White Blood Count 10.5 10^3/uL (4.0-10.0)
[2022-06-13 04:22] LABS: Estmated Average Glucose 114; Hemoglobin A1C 5.6 % (4.0-6.0)
[2022-06-13 04:26] LABS: Vitamin B12 211 pg/mL (232-1245)
[2022-06-13 04:27] LABS: Folate Level 7.5 ng/mL (4.5-32.2)
[2022-06-13 04:30] LABS: Alanine Aminotransferase 8 U/L (0-41); Albumin Level 3.3 g/dL (3.5-5.2); Alkaline Phosphatase 68 U/L (40-130); Anion Gap 14.1 (5-19); Aspartate Amino Transferase 12 U/L (0-40); Blood Urea Nitrogen 22 mg/dL (8-23); Carbon Dioxide 23 mmol/L (22-29); Chloride 106 mmol/L (98-107); Chol HDL Ratio 3.42 mg/dL (1.0-5.00); Cholesterol 130 mg/dL (0-200); Globulin 2.6 g/dL (1.3-4.6); Glucose 110 mg/dL (65-115); HDL Cholesterol 38 mg/dL (60-100); LDL Cholesterol Calculated 75 mg/dL (50-129); Osmolality Calculated 292 mOsm/kg (285-295); Phosphorus 3.1 mg/dL (2.5-4.5); Potassium 4.1 mmol/L (3.5-5.1); Sodium 139 mmol/L (136-145); Total Bilirubin 1.1 mg/dL (0.15-1.2); Total Protein 5.9 g/dL (6.6-8.7); Triglycerides 85 mg/dL (0-150); VLDL Cholestrol Calculation 17 mg/dL (0-30)
[2022-06-13] MEDS: memantine 5 mg tablet PO (05:56)
--- NOTE | 2022-06-13 06:13 | PC.NURSE ---
Shift Note Frequent safety and comfort rounds continue. Orders and/or nursing care completed as indicated. Patient monitored for response to intervention and treatment(s). Education provided includes treatment plan. Patient family (son and daughter in law) verbalized understanding of teaching. Patient had an uneventful shift, remains on room air and is disoriented to time, situation & place. Periodically wakes up and starts to use profanities towards nursing staff. This nurse frequently reorients patient to surroundings and situation. Pt had 2 large bloody bowel movements overnight. No wounds or skin issues noted at this time. Will continue to monitor.
[2022-06-13] MEDS: ferrous gluconate 324 mg Tablet PO (08:19)
[2022-06-13] MEDS: donepezil 5 MG Tablet PO (08:19)
[2022-06-13] MEDS: amlodipine 10 mg Tablet PO (08:19)
[2022-06-13] MEDS: OLANZapine 5 mg ODT 2.5 MG PO (08:20)
[2022-06-13] MEDS: levETIRAcetam 500 mg Tablet PO (08:21)
[2022-06-13] MEDS: pantoprazole 40 mg SDV IVP ×2 (08:21→20:32)
--- NOTE | 2022-06-13 10:31 | PC.CHAP ---
Pastoral Care Encounter/Spiritual Assessment Type of Contact [] Declined home companion visit [] Patient/Family/Request visit [] Outpatient visit [] Follow-up visit [] Physician referral [] Code/Alert [x] Routine visit [] Staff referral [] Actively dying [] Patient sleeping [x Family support [] [] Out of room [] Palliative care [] [] Receiving care in room [] Pre-surgical visit [] Trauma [] Long length of stay [x] ICU visit [x] Other: PT in pretty good frame of mind... family stayed over night with him Relational/Emotional Strength [] Patient feels connected with others/family/visitors/staff [] Distress [] Loneliness/isolation [] Abandonment Spirituality of Patient [] Person of [place] [] Attends Religious of their [place] [] Believes in Prayer [] Reads Bible or Temple materials [] There are Spiritual issues to be addressed Software Writer Interventions [x] Prayer [] Active listening [] Non-anxious presence [] Spiritual/emotional support [] Crisis/trauma care [] Spiritual counseling [] Bereavement support [] Provided bereavement packet [] Provided Bible/devotional materials [] Provided toy/stuffed animal, coloring book to patient or family member [] Provided Communion [] Anointing/[place] [] Salvation [x] Completed spiritual assessment [] Other: Impact on Illness or Injury [] Angry [] Fearful [] Anxious [] Often cries [] Exhaustion [] Unable to work [] Unable to attend uatsdin [] Unable to walk/stand [] Unable to read [] Unable to drive [] Unable to eat/drink [] Unable to sleep [] Unable to be with family [] Patient intubated [] Other: Summary Time spent with patient
[2022-06-13] MEDS: peg /e-lyte soln 4,000 mL Btl 4000 ML PO (10:50)
--- NOTE | 2022-06-13 12:12 | P.PN_ITS ---
Subjective Subjective: Since admission yesterday in the evening while the patient was awaiting to be transferred to the floor in ER patient had a fall when he slipped out of the bed. As per the nurse patient did not hit his head. Afterwards patient was found to be more bradycardic and had an episode of hypotension along with agitation which was treated with atropine, 2 units of blood transfusion he is moved to the ICU. On examination today patient is at his baseline mentation, sleeping but wakes up to verbal stimulus. Alert to self. Denies any nausea, vomiting or abdominal pain. Has not had any further bloody bowel movements while in the ICU. Has remained hemodynamically stable and afebrile. Vitals/I&O/Wt Last Vital Signs Temp 98.5 F 06/13/22 04:20 Pulse 78 06/13/22 08:00 Resp 19 H 06/13/22 08:00 BP 114/75 06/13/22 08:00 Pulse Ox 97 06/13/22 08:00 O2 Del Method 06/13/22 06:30 06/12/22 06/13/22 06/13/22 22:59 06:59 14:59 Intake Total 1700 / 1700 Balance 1700 / 1700 Weight last 48 hrs Weight 78.613 kg Weight 78.613 kg Physical Exam Narrative: General: No acute distress, AO x 2-3 HEENT: PERRLA, pupils bilaterally equal and reactive Chest: Normal vesicular breath sounds, no added sounds, equal good air entry bilaterally CVS: S1-S2 regular, no murmurs, no tachycardia, no gallops, no rubs Abdomen: Soft, nontender, no organomegaly, bowel sounds present Neuro: No focal deficits, no facial deformity, AO x3, power 5/5 in all limbs Data : 06/13/22 03:45 06/13/22 03:45 A&P Assessment and plan (1) Hematochezia: Surgery consulted from the ER for possible EGD and colonoscopy. Plan for bowel prep today and possible colonoscopy in a.m. Protonix 40 mg IV twice daily. For now monitor hemoglobin daily. CT abdomen pelvis appreciated. Negative for any diverticulitis or infectious cause. For now hold off on antibiotics. (2) Lower gastrointestinal hemorrhage: (3) Hypertension: Goal blood pressure less than 140/90 mmHg. Continue with home dose of amlodipine. Hold off on metoprolol given bradycardia. (4) Bradycardia: (5) Dementia: Frequent orientation. Might need sitter. Continue with home dose of Keppra, donepezil, Namenda, olanzapine. Olanzapine 5 mg IM every 6 hourly as needed for agitation. Plan DNR/DNI as per the paperwork from half-way. Clear liquid diet. NPO after midnight. Protonix will suffice as PUD prophylaxis SCDs for DVT prophylaxis Attestations Medical Necessity Statement*: Requires further hospitalization for further evaluation and management of the right red blood per rectum while lower GI bleed is ruled out and the patient with baseline dementia and anxiety. Time Spent in Patient Care: Greater than 35 minutes Coding Level of Care Code Acute City Magistrate for [facility] Fwd Diagnoses Hematochezia K92.1 Lower gastrointestinal hemorrhage K92.2 Hypertension I10 Bradycardia R00.1 Dementia F03.90
[2022-06-13] MEDS: dextrose 5%-sod chloride 0.45% 1,000 ML 50 ML IV (12:47)
[2022-06-13] MEDS: cyanocobalamin 1,000 mcg/mL SDV 1000 MCG IM (12:47)
--- NOTE | 2022-06-13 14:21 | PC.NURSE ---
Large amount of blood came out rectally, Dr. Dang cancelled transfer order, put in med order per oct, Dr. Borrego notified, family updated
--- NOTE | 2022-06-13 14:22 | PM.CONSULT ---
Providers/Reason For Consult Consulting Physician/Specialty*: Dr. Nithin Dang, DO/General surgery Reason for Consult*: GI bleeding Attending Physician: Duncan Borrego MD Primary Care Provider: Allan Peñaloza DO History of Present Illness History of Present Illness Kelton Tolbert is a 81 year old male, who lives in a retirement and has dementia, presented to the hospital due to melena. He is confused and only oriented to person. He had a large melanotic bowel movement as I was examining him. He does not seem to have any abdominal pain. Reportedly from the retirement he was having several episodes of diarrhea prior to having 1 bloody bowel movement. HPI and review of systems are limited secondary to patient's dementia. Review of Systems General: Reports: ROS unobtainable due to mental status Medications/Allergies Home Medications Medication Instructions Recorded Confirmed Last Taken Type acetaminophen 325 mg tablet 650 mg PO Q4H PRN Pain 06/12/22 06/12/22 Unknown History (Tylenol) amlodipine 10 mg tablet 10 mg PO DAILY 06/12/22 06/12/22 Unknown History aspirin 81 mg chewable tablet 81 mg PO DAILY 06/12/22 06/12/22 Unknown History bisacodyl 10 mg rectal suppository 10 mg [place] DAILY PRN Constipation 06/12/22 06/12/22 Unknown History (Dulcolax (bisacodyl)) donepezil 5 mg tablet 5 mg PO DAILY 06/12/22 06/12/22 Unknown History levetiracetam 500 mg tablet 500 mg PO BID 06/12/22 06/12/22 Unknown History (Keppra) lorazepam 1 mg tablet (Ativan) 1 mg PO Q6H PRN Anxiety 06/12/22 06/12/22 Unknown History magnesium hydroxide 400 mg/5 mL 30 ml PO DAILY PRN Constipation 06/12/22 06/12/22 Unknown History oral suspension (Milk of Magnesia) memantine 5 mg tablet (Namenda) 5 mg PO QAM 06/12/22 06/12/22 Unknown History metoprolol tartrate 25 mg tablet 25 mg PO BID 06/12/22 06/12/22 Unknown History olanzapine 2.5 mg tablet (Zyprexa) 2.5 mg PO BID 06/12/22 06/12/22 Unknown History polyethylene glycol 3350 17 17 g PO DAILY 06/12/22 06/12/22 Unknown History gram/dose oral powder (Miralax) pramipexole 0.25 mg tablet 0.25 mg PO BEDTIME 06/12/22 06/12/22 Unknown History (Mirapex) Allergies Allergy/AdvReac Type Severity Reaction Status Date / Time No Known Allergies Allergy Verified 07/21/21 05:58 Current Medications Generic Name Dose Route Start Last Admin Trade Name Freq PRN Reason Stop Dose Admin Amlodipine Besylate 10 mg 06/13/22 09:00 06/13/22 08:19 Amlodipine 10 Mg Tablet PO 10 mg DAILY BONNIE Administration Donepezil HCl 5 mg 06/13/22 09:00 06/13/22 08:19 Donepezil 5 Mg Tablet PO 5 mg DAILY BONNIE Administration Ferrous Gluconate 324 mg 06/12/22 19:52 06/13/22 08:19 Ferrous Gluconate 324 Mg Tablet PO 324 mg BIDWM BONNIE Administration Dextrose/Sodium Chloride 1,000 mls @ 50 mls/hr 06/12/22 17:15 06/13/22 12:47 Dextrose 5%-Sod Chloride 0.45% IV 50 mls/hr .Q20H BONNIE Administration Levetiracetam 500 mg 06/12/22 19:50 06/13/22 08:21 Levetiracetam 500 Mg Tablet PO 500 mg BID BONNIE Administration Memantine 5 mg 06/13/22 06:00 06/13/22 05:56 Memantine 5 Mg Tablet PO 5 mg QAM BONNIE Administration Olanzapine 2.5 mg 06/13/22 09:00 06/13/22 08:20 Olanzapine 5 Mg Odt PO 2.5 mg BID BONNIE Administration Olanzapine 5 mg 06/12/22 19:52 06/12/22 20:05 Olanzapine 10 Mg Vial IM 5 mg Q6H PRN Administration SEVERE AGITATION Pantoprazole Sodium 40 mg 06/13/22 09:00 06/13/22 08:21 Pantoprazole 40 Mg Sdv IVP 40 mg Q12H BONNIE Administration Pramipexole Dihydrochloride 0.25 mg 06/12/22 21:00 06/12/22 23:41 Pramipexole 0.25 Mg Tablet PO 0.25 mg BEDTIME BONNIE Administration PFSH Acute PFSH: Medical History Anxiety CVA (cerebral vascular accident) Dementia DNR (do not resuscitate) Hypertension Restless leg syndrome Social History Smoking and tobacco status: unknown if ever smoked Alcohol intake: unknown Substance/Drug Use: unknown Household members: other Housing: Residential Vitals/I&O/Wt Last Vital Signs Temp 98.5 F 06/13/22 04:20 Pulse 59 L 06/13/22 12:00 Resp 16 06/13/22 12:00 BP 143/74 06/13/22 12:00 Pulse Ox 99 06/13/22 12:00 O2 Del Method 06/13/22 06:30 06/12/22 06/13/22 06/13/22 22:59 06:59 14:59 Intake Total 1700 / 1700 Balance 1700 / 1700 Weight last 48 hrs Weight 173 lb 5 oz Weight 173 lb 5 oz Physical Exam Narrative: General : Patient is well developed , no acute distress, oriented to person only Head : Normal cephalic, a-traumatic. Ears : Pinnae and external canal are normal. Hearing is normal. Eyes : PERRLA, Sclera and injection are normal. No conjunctival discharge. Nose : Mucous membranes are without erythema. Throat : buccal mucosa is normal, gums are without significant recession or hypertrophy. Lungs : Equal chest rise bilaterally, no use of accessory muscles, trachea is midline. Cor : Rate and rhythm are normal. Abdomen : Soft, ND, NT, no g/r/m Extremities : No edema, no cyanosis or clubbing, dorsalis pedis pulses are present bilaterally, non-tender to palpation of calves. Upper extremities are normal bilaterally. Back : non-tender to palpation, no CVA tenderness. Neuro : CN II - XII intact, Upper and lower extremities have equal and full strength Data : 06/14/22 04:13 06/14/22 04:13 A&P Assessment and plan (1) Anemia: (2) Melena: Plan Bowel prep Clear liquids N.p.o. after midnight 1 g tranexamic acid now and in 1 hour EGD Colonoscopy The risks and benefits of the procedure, including bleeding, infection, intestinal perforation requiring surgery, missed lesion, or explained to the patient. He is understanding of the risks and wishes to proceed. Coding Level of Care Code Acute Drying Tumbler Operator for [facility] Fwd Diagnoses Anemia D64.9 Melena K92.1
[2022-06-13 15:47] LABS: Hematocrit 30.8 % (42.0-52.0); Hemoglobin 9.7 g/dL (11.7-16.6)
[2022-06-13] MEDS: pramipexole 0.25 mg Tablet PO (20:31)
--- NOTE | 2022-06-13 23:00 | PC.NURSE ---
Golytely Majority of the Golytely remaining in patient room; Copious amounts of bloody stool reported at shift change. Dr. Dang called to verify administration of remaining golytely. Order verified, medication administered.
[2022-06-14] VITALS (41 sets, daily range): BP systolic 107–165; BP diastolic 59–94; PULSE 68–160; RESP 12–28; TEMP 35.8–36.8; O2SAT 75–100; BMI 26.2
--- NOTE | 2022-06-14 04:15 | PHA.FALL ---
A Pharmacy Consult Was Conducted For Kelton Tolbert Due To: Yang Fall Scale Risk Level: High Fall Risk On 06/13/22 20:00 And A Medication Fall Risk Score Greater Than 10. The Recommendations Are As Follows: Amlodipine CHANTAL: 1,3,4,5,7,9,10 Levetiracetam CHANTAL:1,3,4,5,6,7,8,10 Lorazepam CHANTAL: 1,3,4,5,6,8,10 Olanzapine CHANTAL: 2,3,4,5,7,8 Metoprolol CHANTAL: 1,2,3,4,5,9,10 Medications which cause/contribute to: 1= sedation/fatigue/lethargy 2= decreased alertness 3= postural/orthostatic hypotension 4= dizziness 5= decreased neuromuscular function/ataxia 6=decreased memory/cognitive impairment 7= blurred vision 8= confusion 9= arrhythmias 10= syncope 11= anemia
[2022-06-14 04:35] LABS: Basophils % 0.4 %; Eosinophils # 0.2 10^3/uL (0.0-0.8); Eosinophils % 2.1 %; Hematocrit 31.5 % (42.0-52.0); Hemoglobin 10.2 g/dL (11.7-16.6); Lymphocytes # 1.7 10^3/uL (0.8-4.8); Lymphocytes % 21.9 %; Mean Corpuscular HGB Conc 32.4 g/dL (30.0-36.0); Mean Corpuscular Hemoglobin 30.4 pg (28.0-34.0); Mean Corpuscular Volume 93.8 fl (80-94); Mean Platelet Volume 10.6 fL (7.4-10.4); Monocytes # 0.5 10^3/uL (0.2-0.9); Monocytes % 6.2 %; Neutrophils # 5.22 10^3/uL (1.8-7.7); Neutrophils % 68.7 %; Nucleated Red Blood Cells % 0 %; Platelet Count 212 10^3/cmm (130-400); Red Blood Count 3.36 10^6/uL (4.1-5.3); White Blood Count 7.6 10^3/uL (4.0-10.0)
[2022-06-14 05:02] LABS: Alanine Aminotransferase 8 U/L (0-41); Albumin Level 3.5 g/dL (3.5-5.2); Alkaline Phosphatase 70 U/L (40-130); Anion Gap 11.7 (5-19); Aspartate Amino Transferase 14 U/L (0-40); Blood Urea Nitrogen 20 mg/dL (8-23); Calcium 9.3 mg/dL (8.5-10.5); Carbon Dioxide 27 mmol/L (22-29); Chloride 105 mmol/L (98-107); Globulin 2.6 g/dL (1.3-4.6); Glucose 119 mg/dL (65-115); Osmolality Calculated 294 mOsm/kg (285-295); Potassium 3.7 mmol/L (3.5-5.1); Sodium 140 mmol/L (136-145); Total Bilirubin 0.5 mg/dL (0.15-1.2); Total Protein 6.1 g/dL (6.6-8.7)
[2022-06-14] MEDS: memantine 5 mg tablet PO (05:16)
[2022-06-14] MEDS: ferrous gluconate 324 mg Tablet PO ×2 (08:42→17:10)
[2022-06-14] MEDS: cyanocobalamin 1,000 mcg/mL SDV 1000 MCG IM (08:42)
[2022-06-14] MEDS: OLANZapine 5 mg ODT 2.5 MG PO ×2 (08:42→17:10)
[2022-06-14] MEDS: amlodipine 10 mg Tablet PO (08:42)
[2022-06-14] MEDS: donepezil 5 MG Tablet PO (08:42)
[2022-06-14] MEDS: pantoprazole 40 mg SDV IVP ×2 (08:43→20:28)
[2022-06-14] MEDS: levETIRAcetam 500 mg Tablet PO ×2 (08:43→17:10)
[2022-06-14] MEDS: dextrose 5%-sod chloride 0.45% 1,000 ML 50 ML IV (10:00)
--- NOTE | 2022-06-14 10:38 | W.PM.OPSUD ---
Surgery/Procedure H&P Update DATE OF PROCEDURE: June 14, 2022 DATE H&P PERFORMED: 06/13/22 PLANNED PROCEDURE: Operation Date: 06/14/22 11:30 Proposed Procedures p EGD/COLON(Not Applicable) - DO sugey Pelletier Colonoscopy(Not Applicable) - Nithin Dang DO
--- NOTE | 2022-06-14 11:58 | P.ANESASSM_ITS ---
Pre-Anesthetic Assessment Height/Weight: Height 1.7 m Weight 75.977 kg Temp Pulse Resp BP Pulse Ox O2 Del Method 96.4 F L 99 15 131/63 88 L 06/14/22 08:00 06/14/22 10:00 06/14/22 10:00 06/14/22 10:00 06/14/22 09:30 06/14/22 08:00 Preop Diagnosis: Gi Bleed Operation Date: 06/14/22 11:30 Proposed Procedures p EGD/COLON(Not Applicable) - Nithin Dang DO s Colonoscopy(Not Applicable) - Nithin Dang DO Familial anesthetic complications: none Was Beta Lui taken within 24 hours: Yes Social No alcohol and No tobacco Exam alert and oriented x 3 (confused - dementia patient) Airway Submandibular: within normal limits Cervical ROM: within normal limits Mallampati: Class II Dentition: chipped Pulmonary None reported CV/HEM Hypertension history of bradycardia HR 100 currently None reported Hepatic None reported GI GI bleed Metabolic None reported Neuropsych Dementia Anesthetic Plan ASA status: 3 Anesthesia: MAC Medications/Allergies Home Medications Medication Instructions Recorded Confirmed Last Taken Type acetaminophen 325 mg tablet 650 mg PO Q4H PRN Pain 06/12/22 06/12/22 Unknown History (Tylenol) amlodipine 10 mg tablet 10 mg PO DAILY 06/12/22 06/12/22 Unknown History aspirin 81 mg chewable tablet 81 mg PO DAILY 06/12/22 06/12/22 Unknown History bisacodyl 10 mg rectal suppository 10 mg [place] DAILY PRN Constipation 06/12/22 06/12/22 Unknown History (Dulcolax (bisacodyl)) donepezil 5 mg tablet 5 mg PO DAILY 06/12/22 06/12/22 Unknown History levetiracetam 500 mg tablet 500 mg PO BID 06/12/22 06/12/22 Unknown History (Keppra) lorazepam 1 mg tablet (Ativan) 1 mg PO Q6H PRN Anxiety 06/12/22 06/12/22 Unknown History magnesium hydroxide 400 mg/5 mL 30 ml PO DAILY PRN Constipation 06/12/22 06/12/22 Unknown History oral suspension (Milk of Magnesia) memantine 5 mg tablet (Namenda) 5 mg PO QAM 06/12/22 06/12/22 Unknown History metoprolol tartrate 25 mg tablet 25 mg PO BID 06/12/22 06/12/22 Unknown History olanzapine 2.5 mg tablet (Zyprexa) 2.5 mg PO BID 06/12/22 06/12/22 Unknown History polyethylene glycol 3350 17 17 g PO DAILY 06/12/22 06/12/22 Unknown History gram/dose oral powder (Miralax) pramipexole 0.25 mg tablet 0.25 mg PO BEDTIME 06/12/22 06/12/22 Unknown History (Mirapex) Allergies Allergy/AdvReac Type Severity Reaction Status Date / Time No Known Allergies Allergy Verified 07/21/21 05:58 Current Medications Generic Name Dose Route Start Last Admin Trade Name Freq PRN Reason Stop Dose Admin Amlodipine Besylate 10 mg 06/13/22 09:00 06/14/22 08:42 Amlodipine 10 Mg Tablet PO 10 mg DAILY BONNIE Administration Cyanocobalamin 1,000 mcg 06/14/22 09:00 06/14/22 08:42 Cyanocobalamin 1,000 Mcg/Ml Sdv IM 1,000 mcg DAILY BONNIE Administration Donepezil HCl 5 mg 06/13/22 09:00 06/14/22 08:42 Donepezil 5 Mg Tablet PO 5 mg DAILY BONNIE Administration Ferrous Gluconate 324 mg 06/12/22 19:52 06/14/22 08:42 Ferrous Gluconate 324 Mg Tablet PO 324 mg BIDWM BONNIE Administration Dextrose/Sodium Chloride 1,000 mls @ 50 mls/hr 06/12/22 17:15 06/14/22 10:00 Dextrose 5%-Sod Chloride 0.45% IV 50 mls/hr .Q20H BONNIE Administration Levetiracetam 500 mg 06/12/22 19:50 06/14/22 08:43 Levetiracetam 500 Mg Tablet PO 500 mg BID BONNIE Administration Memantine 5 mg 06/13/22 06:00 06/14/22 05:16 Memantine 5 Mg Tablet PO 5 mg QAM BONNIE Administration Olanzapine 2.5 mg 06/13/22 09:00 06/14/22 08:42 Olanzapine 5 Mg Odt PO 2.5 mg BID BONNIE Administration Olanzapine 5 mg 06/12/22 19:52 06/12/22 20:05 Olanzapine 10 Mg Vial IM 5 mg Q6H PRN Administration SEVERE AGITATION Pantoprazole Sodium 40 mg 06/13/22 09:00 06/14/22 08:43 Pantoprazole 40 Mg Sdv IVP 40 mg Q12H BONNIE Administration Pramipexole Dihydrochloride 0.25 mg 06/12/22 21:00 06/13/22 20:31 Pramipexole 0.25 Mg Tablet PO 0.25 mg BEDTIME BONNIE Administration PFSH Anesthesia Medical History Anxiety CVA (cerebral vascular accident) Dementia DNR (do not resuscitate) Hypertension Restless leg syndrome Social History Smoking and tobacco status: unknown if ever smoked Alcohol intake: unknown Substance/Drug Use: unknown Household members: other Housing: Half-Way Data Anesthesia : 06/14/22 04:13 06/14/22 04:13 Short CBC 06/12/22 06/12/22 06/13/22 Range/Units 14:17 20:20 03:45 WBC 7.6 10.5 H (4.0-10.0) 10^3/uL Hgb 11.8 11.9 11.3 L (11.7-16.6) g/dL Hct 36.2 L 36.5 L 35.0 L (42.0-52.0) % MCV 95.0 H 94.6 H (80-94) fl Plt Count 231 189 (130-400) 10^3/cmm Neut % (Auto) 71.1 81.4 % Neut # (Auto) 5.37 8.58 H (1.8-7.7) 10^3/uL 06/13/22 06/14/22 Range/Units 15:17 04:13 WBC 7.6 (4.0-10.0) 10^3/uL Hgb 9.7 L 10.2 L (11.7-16.6) g/dL Hct 30.8 L 31.5 L (42.0-52.0) % MCV 93.8 (80-94) fl Plt Count 212 (130-400) 10^3/cmm Neut % (Auto) 68.7 % Neut # (Auto) 5.22 (1.8-7.7) 10^3/uL BMP 11/09/0206/13/22 06/14/22 14:17 03:45 04:13 Sodium 137 139 140 Potassium 4.3 4.1 3.7 Chloride 104 106 105 Carbon Dioxide 23 23 27 BUN 24 H 22 20 Creatinine 1.3 H 1.3 H 1.3 H Glucose 111 110 119 H Calcium 9.3 9.0 9.3 Liver Function 06/12/22 06/13/22 06/14/22 Range/Units 14:17 03:45 04:13 Total Bilirubin 0.2 1.1 0.5 (0.15-1.2) mg/dL AST 14 12 14 (0-40) U/L ALT 8 8 8 (0-41) U/L Alkaline Phosphatase 82 68 70 (40-130) U/L Albumin 3.6 3.3 L 3.5 (3.5-5.2) g/dL Blood Bank 06/12/22 15:08 Blood Type O Positive Rho(D) Type Positive Antibody Screen Negative Coags 06/12/22 14:17 PT 14.20 INR 1.07 APTT 30.4 Cardiac Studies: No Data to Display
[2022-06-14] MEDS: sodium chloride 0.9% 1,000 ML 30 ML IV (12:02)
--- NOTE | 2022-06-14 12:51 | PC.CHAP ---
Pastoral Care Encounter/Spiritual Assessment Type of Contact [] Declined airfreight operations agent visit [] Patient/Family/Request visit [] Outpatient visit [] Follow-up visit [] Physician referral [] Code/Alert x] Routine visit [] Staff referral [] Actively dying [] Patient sleeping [] Family support [] [] Out of room [] Palliative care [] [x] Receiving care in room [] Pre-surgical visit [] Trauma [] Long length of stay [x] ICU visit [] Other: Relational/Emotional Strength [] Patient feels connected with others/family/visitors/staff [] Distress [] Loneliness/isolation [] Abandonment Spirituality of Patient [] Person of [place] [] Attends Congregational of their [place] [] Believes in Prayer [] Reads Bible or Samaritan materials [] There are Spiritual issues to be addressed Lead Java Programmer Interventions [] Prayer [] Active listening [] Non-anxious presence [] Spiritual/emotional support [] Crisis/trauma care [] Spiritual counseling [] Bereavement support [] Provided bereavement packet [] Provided Bible/devotional materials [] Provided toy/stuffed animal, coloring book to patient or family member [] Provided Communion [] Anointing/[place] [] Salvation [] Completed spiritual assessment [] Other: Impact on Illness or Injury [] Angry [] Fearful [] Anxious [] Often cries [] Exhaustion [] Unable to work [] Unable to attend tenriism [] Unable to walk/stand [] Unable to read [] Unable to drive [] Unable to eat/drink [] Unable to sleep [] Unable to be with family [] Patient intubated [] Other: Summary Time spent with patient
--- NOTE | 2022-06-14 13:26 | ANE.PACU2 ---
Inpatient post-anesthesia follow up: Airway intact: Yes Vital signs: Temperature 98 F Pulse Rate 103 Respiratory Rate 19 Blood Pressure 127/79 Pulse Oximetry 100 Oxygen Delivery Me thod Room Air Oxygen Flow Rate Fraction of Inspir ed Oxygen Hydration adequate: Yes Nausea and vomiting: No Pain level: 1 Mental status: Baseline
--- NOTE | 2022-06-14 14:43 | P.PN_ITS ---
Subjective Subjective: No acute events overnight. Patient has been tolerating GoLytely well. Patient underwent EGD and endoscopy today found to have extensive duodenitis. Hemoglobin has remained stable. Family at bedside. Vitals/I&O/Wt Last Vital Signs Temp 98.3 F 06/14/22 13:30 Pulse 80 06/14/22 14:00 Resp 15 06/14/22 13:30 BP 118/63 06/14/22 13:30 Pulse Ox 99 06/14/22 13:30 O2 Del Method 06/14/22 13:30 06/13/22 06/14/22 06/14/22 22:59 06:59 14:59 Intake Total 220 / 220 1045 / 1045 Output Total 400 / 400 Balance 220 / 220 645 / 645 Weight last 48 hrs Weight 75.977 kg Weight 78.613 kg Weight 78.613 kg Physical Exam Narrative: General: No acute distress, AO x 2-3 HEENT: PERRLA, pupils bilaterally equal and reactive Chest: Normal vesicular breath sounds, no added sounds, equal good air entry bilaterally CVS: S1-S2 regular, no murmurs, no tachycardia, no gallops, no rubs Abdomen: Soft, nontender, no organomegaly, bowel sounds present Neuro: No focal deficits, no facial deformity, AO x3, power 5/5 in all limbs Data : 06/14/22 04:13 06/14/22 04:13 A&P Assessment and plan (1) Hematochezia: Post EGD and colonoscopy. Monitor hemoglobin daily. Post 2 unit blood transfusion. Target hemoglobin more than 7. (2) Duodenitis: Found on EGD and colonoscopy. Continue Protonix 40 mg twice daily. Add Carafate before meals and at bedtime. Hold off on aspirin for now. (3) Lower gastrointestinal hemorrhage: (4) Hypertension: Goal blood pressure less than 140/90 mmHg. Continue with home dose of amlodipine. Metoprolol was withheld on admission secondary to bradycardia. Heart rate trending up now. Will start on lower dose of 12.5 mg twice daily. (5) Bradycardia: Resolved. (6) Dementia: Frequent orientation. Might need sitter. Continue with home dose of Keppra, donepezil, Namenda, olanzapine. Olanzapine 5 mg IM every 6 hourly as needed for agitation. (7) Melena: Plan DNR/DNI as per the paperwork from correction. Clear liquid diet. NPO after midnight. Protonix will suffice as PUD prophylaxis SCDs for DVT prophylaxis Attestations Medical Necessity Statement*: Requires further hospitalization for management of anemia secondary to GI bleed from duodenitis Time Spent in Patient Care: Greater than 35 minutes Coding Level of Care Code Acute Dialysis Social Worker for [facility] Fwd Diagnoses Hematochezia K92.1 Duodenitis K29.80 Lower gastrointestinal hemorrhage K92.2 Hypertension I10 Bradycardia R00.1 Dementia F03.90 Melena K92.1
--- NOTE | 2022-06-14 15:45 | PC.NURSE ---
Patient has not voided since colonoscopy. Bladder scan shows retaining 595mL. Nurse assisted patient to side of the bed. walked in place for a minute. Patient was then able to urinate 500mL
[2022-06-14] MEDS: sucralfate 1 gm Tablet PO ×2 (17:10→20:28)
--- NOTE | 2022-06-14 17:40 | PC.NURSE ---
Shift Summary....uneventful shift. After colonoscopy, patient recovered without incident. Was up to a chair, but was frequently attempting to get out up and leave room. Moved patient back to bed. No bloody stools since colonoscopy. Patient has voided since procedure. Alert to self only, per family this is his baseline. Patient has been pleasantly confused.
[2022-06-14] MEDS: LORazepam 1 mg Tablet PO (17:59)
--- NOTE | 2022-06-14 18:10 | PC.NURSE ---
Patient has been pleasant all day and easily redirected. Near end of shift patient has become agitated. Frequently trying to get out of bed. Pulling off monitoring devices. Not able to be redirected. PO ativan given.
--- NOTE | 2022-06-14 19:09 | PC.NURSE ---
Patient is now calm, resting in bed. More easily redirected.
[2022-06-14] MEDS: metoprolol tartrate 25 mg Tablet 12.5 MG PO (20:28)
[2022-06-14] MEDS: pramipexole 0.25 mg Tablet PO (20:28)
[2022-06-14] MEDS: OLANZapine 10 mg VIAL 5 MG IM (21:45)
--- NOTE | 2022-06-14 21:57 | PC.NURSE ---
2139 patient becoming increasingly agitated and angry; attempting to get out of bed 2144 5 mg of IM PRN Zyprexa given; will continue to monitor closely
--- NOTE | 2022-06-14 23:05 | PC.NURSE ---
2245 patient becoming increasingly agitated accompanied with violent behavior (hitting, kicking, spitting) 225 Dr. Raymond called for further orders; no answer at this time
[2022-06-14] MEDS: LORazepam 2 mg/mL INJ 1 mL IVP (23:37)
--- NOTE | 2022-06-14 23:56 | PC.NURSE ---
4641 Dr. Raymond notified of patient's recent behavior, new orders noted
[2022-06-15] VITALS (12 sets, daily range): BP systolic 114–154; BP diastolic 59–99; PULSE 85–98; RESP 15–20; TEMP 36.9; O2SAT 92–97
[2022-06-15 04:00] LABS: Basophils % 0.2 %; Eosinophils # 0.2 10^3/uL (0.0-0.8); Eosinophils % 2.2 %; Hematocrit 28.7 % (42.0-52.0); Hemoglobin 8.9 g/dL (11.7-16.6); Lymphocytes # 1.9 10^3/uL (0.8-4.8); Lymphocytes % 22.3 %; Mean Corpuscular Hemoglobin 30.5 pg (28.0-34.0); Mean Corpuscular Volume 98.3 fl (80-94); Monocytes # 0.6 10^3/uL (0.2-0.9); Monocytes % 7.1 %; Neutrophils % 67.7 %; Nucleated Red Blood Cells % 0 %; Platelet Count 187 10^3/cmm (130-400); Red Blood Count 2.92 10^6/uL (4.1-5.3); Red Cell Distribution Width 12.9 % (12.1-15.1); White Blood Count 8.6 10^3/uL (4.0-10.0)
[2022-06-15] MEDS: memantine 5 mg tablet PO (05:02)
[2022-06-15] MEDS: LORazepam 1 mg Tablet PO (05:02)
[2022-06-15 05:37] LABS: SARS Covid-2 Antigen negative (Negative)
[2022-06-15] MEDS: sucralfate 1 gm Tablet PO ×2 (07:28→10:16)
[2022-06-15] MEDS: ferrous gluconate 324 mg Tablet PO (07:29)
[2022-06-15] MEDS: levETIRAcetam 500 mg Tablet PO (08:53)
[2022-06-15] MEDS: OLANZapine 5 mg ODT 2.5 MG PO (08:54)
[2022-06-15] MEDS: amlodipine 10 mg Tablet PO (08:55)
[2022-06-15] MEDS: donepezil 5 MG Tablet PO (08:55)
[2022-06-15] MEDS: metoprolol tartrate 25 mg Tablet 12.5 MG PO (08:55)
[2022-06-15] MEDS: cyanocobalamin 1,000 mcg/mL SDV 1000 MCG IM (08:56)
[2022-06-15] MEDS: pantoprazole 40 mg SDV IVP (08:56)
--- NOTE | 2022-06-15 09:33 | PM.DCS ---
Discharge Providers Date of Admission: 06/12/22 16:27 Date of Discharge: June 15, 2022 Attending Provider at Admission: Duncan Borrego MD Attending Provider at Discharge: Duncan Borrego MD Consults: Surgery: Dr. Dang Primary Care Provider: Allan Peñaloza DO Diagnoses at Discharge Discharge Diagnosis (1) Hematochezia: Status: Acute (2) Duodenitis: Status: Acute (3) Hypertension: Status: Acute (4) Bradycardia: Status: Acute (5) Dementia: Status: Chronic (6) Melena: Status: Acute Reason for Visit Reason for Visit: blood in stool Hospital Course Hospital Course Kelton Tolbert is a 81 year old male with past medical history of dementia, anxiety, hypertension, CVA who is a [facility] resident was brought into the ER today because he was found to have blood mixed in bowel movement.? As per the patient who was fairly confused he started having multiple episodes of diarrhea yesterday evening without any abdominal pain, nausea or vomiting.? Patient is alert to self, reason to being in the hospital, place but is occasionally getting confused, fidgety. Patient was admitted to hospital further evaluation and management. During hospitalization he had 2 episodes of hernan bright blood per rectum. His hemoglobin transition down for which he required overall 3 units of blood transfusion. He also seen by surgery and he underwent EGD and colonoscopy after thorough bowel prep. On EGD/colonoscopy he was found to have extensive duodenitis without any active bleeding. His hospitalization otherwise remained unremarkable. He remained at his baseline mentation of occasional confusion and agitation with dementia. He has been discharged in hemodynamically stable condition on oral Protonix twice daily along with Carafate with meals for next 2 weeks. He is advised to follow-up with his primary care provider within next 1 week for repeat CBC. Physical Exam Narrative: General: No acute distress, AO x 2-3 HEENT: PERRLA, pupils bilaterally equal and reactive Chest: Normal vesicular breath sounds, no added sounds, equal good air entry bilaterally CVS: S1-S2 regular, no murmurs, no tachycardia, no gallops, no rubs Abdomen: Soft, nontender, no organomegaly, bowel sounds present Neuro: No focal deficits, no facial deformity, AO x3, power 5/5 in all limbs Discharge Data Studies Completed and Pending Completed Studies During Hospitalization Category Date Time Status CT abdomen pelvis w con* [id number] Stat Cat Scan 06/12/22 13:48 Completed Pending at discharge Category Date Time Status Pathology: Surgical [PTH] Routine Pth 06/14/22 12:37 Received Radiology Impressions Abdomen/Pelvis CT 06/12/22 13:48 IMPRESSION: 1. Colonic diverticulosis without diverticulitis, free air or pneumatosis. However there is probable mural thickening of the proximal sigmoid colon. See discussion above. 2. Fluid distention of rectum with probable mild rectal wall thickening. Please also refer to discussion above. No evidence of bowel obstruction otherwise. Follow-up assessment or endoscopy should be considered for the above findings. 3. Prostate enlargement with nodular contour. 4. Small hiatal hernia and coronary calcification. Other nonacute findings as above. COMMENTS: Consistent with the [employer]'s Incidental Findings Committee white paper (J Am Valente Radiol 2018): Any incidental renal lesion less than 1 cm or classified as too small to characterize, or any incidental cystic renal lesion characterized as simple-appearing, is likely benign. No follow-up imaging is recommended for these lesions per consensus recommendations based on imaging criteria. Laboratory Results WBC 8.6 10^3/uL (4.0-10.0) 06/15/22 03:44 RBC 2.92 10^6/uL (4.1-5.3) L 06/15/22 03:44 Hgb 8.9 g/dL (11.7-16.6) L 06/15/22 03:44 Hct 28.7 % (42.0-52.0) L 06/15/22 03:44 MCV 98.3 fl (80-94) H 06/15/22 03:44 MCH 30.5 pg (28.0-34.0) 06/15/22 03:44 MCHC 31.0 g/dL (30.0-36.0) 06/15/22 03:44 RDW 12.9 % (12.1-15.1) 06/15/22 03:44 Plt Count 187 10^3/cmm (130-400) 06/15/22 03:44 MPV 11.0 fL (7.4-10.4) H 06/15/22 03:44 Neut % (Auto) 67.7 % 06/15/22 03:44 Lymph % (Auto) 22.3 % 06/15/22 03:44 Robeson % (Auto) 7.1 % 06/15/22 03:44 Eos % (Auto) 2.2 % 06/15/22 03:44 Baso % (Auto) 0.2 % 06/15/22 03:44 Neut # (Auto) 5.80 10^3/uL (1.8-7.7) 06/15/22 03:44 Lymph # (Auto) 1.9 10^3/uL (0.8-4.8) 06/15/22 03:44 Robeson # (Auto) 0.6 10^3/uL (0.2-0.9) 06/15/22 03:44 Eos # (Auto) 0.2 10^3/uL (0.0-0.8) 06/15/22 03:44 Baso # (Auto) 0.0 10^3/uL (0.0-0.1) 06/15/22 03:44 Nucleated RBC % (auto) 0 % 06/15/22 03:44 Nucleated RBCs # 0.0 /100WBC 06/15/22 03:44 PT 14.20 SECONDS (12.1-14.9) 06/12/22 14:17 INR 1.07 (0.8-1.2) 06/12/22 14:17 APTT 30.4 SECONDS (23.9-36.7) 06/12/22 14:17 Sodium 140 mmol/L (136-145) 06/14/22 04:13 Potassium 3.7 mmol/L (3.5-5.1) 06/14/22 04:13 Chloride 105 mmol/L (98-107) 06/14/22 04:13 Carbon Dioxide 27 mmol/L (22-29) 06/14/22 04:13 Anion Gap 11.7 (5-19) 06/14/22 04:13 BUN 20 mg/dL (8-23) 06/14/22 04:13 Creatinine 1.3 mg/dL (0.7-1.2) H 06/14/22 04:13 GFR Calculation Not Reportable 06/14/22 04:13 Glucose 119 mg/dL (65-115) H 06/14/22 04:13 Estimat Average Glucose 114 06/13/22 03:45 Hemoglobin A1c 5.6 % (4.0-6.0) 06/13/22 03:45 Calculated Osmolality 294 mOsm/kg (285-295) 06/14/22 04:13 Calcium 9.3 mg/dL (8.5-10.5) 06/14/22 04:13 Phosphorus 3.1 mg/dL (2.5-4.5) 06/13/22 03:45 Magnesium 2.0 mg/dL (1.7-2.3) 06/13/22 03:45 Iron 81 ug/dL (59-158) 06/12/22 14:17 TIBC 244 mcg/dl 06/12/22 14:17 % Saturation 33.1 % (20-50) 06/12/22 14:17 Unsat Iron Binding 163 ug/dL (112-347) 06/12/22 14:17 Total Bilirubin 0.5 mg/dL (0.15-1.2) 06/14/22 04:13 AST 14 U/L (0-40) 06/14/22 04:13 ALT 8 U/L (0-41) 06/14/22 04:13 Alkaline Phosphatase 70 U/L (40-130) 06/14/22 04:13 Total Protein 6.1 g/dL (6.6-8.7) L 06/14/22 04:13 Albumin 3.5 g/dL (3.5-5.2) 06/14/22 04:13 Globulin 2.6 g/dL (1.3-4.6) 06/14/22 04:13 Triglycerides 85 mg/dL (0-150) 06/13/22 03:45 Cholesterol 130 mg/dL (0-200) 06/13/22 03:45 LDL Cholesterol, Calc 75 mg/dL (50-129) 06/13/22 03:45 Total VLDL Cholesterol 17 mg/dL (0-30) 06/13/22 03:45 HDL Cholesterol 38 mg/dL (60-100) L 06/13/22 03:45 Cholesterol/HDL Ratio 3.42 mg/dL (1.0-5.00) 06/13/22 03:45 Vitamin B12 211 pg/mL (232-1245) L 06/12/22 14:17 Folate 7.5 ng/mL (4.5-32.2) 06/12/22 14:17 TSH 1.54 uIU/mL (0.27-4.20) 06/12/22 14:17 SARS-CoV-2 Ag (Rapid) negative (Negative) 06/15/22 05:10 Blood Type O Positive 06/12/22 15:08 Rho(D) Type Positive 06/12/22 15:08 Antibody Screen Negative 06/12/22 15:08 Crossmatch See Detail 06/12/22 15:08 Vitals Last Vital Signs Temp 98.5 F 06/15/22 04:00 Pulse 86 06/15/22 08:00 Resp 16 06/15/22 09:00 BP 128/76 06/15/22 09:00 Pulse Ox 95 06/15/22 09:00 O2 Del Method 06/15/22 04:00 Discharge Plan Discharge Patient Disposition: Xfer SNF Condition: Stable Prescriptions: New cyanocobalamin (vitamin B-12) 500 mcg tablet 500 mcg PO DAILY Qty: 30 0RF Protonix 40 mg tablet,delayed release (DR/EC) 40 mg PO BID Qty: 60 0RF Carafate 1 gram tablet 1 g PO TID 14 Days Qty: 42 0RF Continued Tylenol 325 mg Tablet 650 mg PO Q4H PRN (Reason: Pain) donepezil 5 mg Tablet 5 mg PO DAILY Keppra 500 mg Tablet 500 mg PO BID Zyprexa 2.5 mg Tablet 2.5 mg PO BID Milk of Magnesia 400 mg/5 mL Suspension 30 ml PO DAILY PRN (Reason: Constipation) amlodipine 10 mg Tablet 10 mg PO DAILY Dulcolax (bisacodyl) 10 mg Suppository 10 mg [place] DAILY PRN (Reason: Constipation) Mirapex 0.25 mg Tablet 0.25 mg PO BEDTIME Ativan 1 mg Tablet 1 mg PO Q6H PRN (Reason: Anxiety) Miralax 17 gram/dose Powder 17 g PO DAILY Namenda 5 mg Tablet 5 mg PO QAM Changed metoprolol tartrate 25 mg Tablet 12.5 mg PO BID Qty: 30 0RF Held aspirin 81 mg Tablet,Chewable 81 mg PO DAILY Hold Instructions: Resume on 06/30/22. Discharge Orders: Discharge Order (Routine); Ordered 06/15/22 Ordered By: Duncan Borrego [facility]errals: [facility] [Outside] Allan Peñaloza DO [Primary Care Provider] - 7-10 days Discharge Diet: Usual diet Discharge Activity: Resume usual activity and Increase activity as tolerated Patient Instructions: Sucralfate (By mouth) (Carafate), Pantoprazole (By mouth), Vitamin B-12 (By mouth), Duodenitis (DC), GI Discharge Instructions, Opioid Safety Activity Restrictions/Additional Instructions: Hold aspirin for next 2 weeks. Take Protonix 2 times a day for next 1 month. Take Carafate 3 times a day with meals for next 2 weeks. Please repeat a hemoglobin in the next 1 week. Discharge Attestations Time Spent in Discharge Care*: greater than 30 min Specific Discharge Activities: educating and/or supporting family/caregiver, discussing with pcp/other providers, discussing with caseworker intake/social workers/dc planners, documenting/other paperwork and evaluating patient/reviewing data Status at Discharge: Cognitive status at discharge: moderately impaired cognition, Behavioral status at discharge: can be uncooperative, Functional status at discharge: other assisted ambulation, Overall status at discharge: patient is back to baseline Quality Metrics Clinical Quality Measures [ No reported AMI, CVA or VTE this stay] Coding Level of Care Code Acute Chg FW DC note Diagnoses Hematochezia K92.1 Duodenitis K29.80 Hypertension I10 Bradycardia R00.1 Dementia F03.90 Melena K92.1
--- NOTE | 2022-06-15 10:37 | PC.SOCIAL ---
IMM update IMM updated with DPOA Edi. Verbalized an understanding. Initialled, dated, timed, and placed in chart.
--- NOTE | 2022-06-15 11:08 | PC.NURSE ---
Patient received discharge orders, called report to [facility]. Removed IV's and medications were sent to preferred pharmacy. All instructions given to receiving facility no further questions. Awaiting EMS for transfer to SNF.
== END 2022-06-15 11:55 | disposition skilled nursing facility (03) | DRG 378 ==
LOC: ER 17:16 → ICU 20:49
PROVIDERS: Surgery; Admitting Provider Student in an Organized Health Care Education/Training Program; Emergency Provider Emergency Medicine; PCP Internal Medicine; Visit Provider Student in an Organized Health Care Education/Training Program
PROC: 0DJ08ZZ Inspection of Upper Intestinal Tract, Via Natural or Artificial Opening Endoscopic (ICD-10-PCS; CPT 43235; principal; 2022-06-14 11:30)
PROC: 0DJD8ZZ Inspection of Lower Intestinal Tract, Via Natural or Artificial Opening Endoscopic (ICD-10-PCS; CPT 45378; 2022-06-14 11:30)
DX: K29.81 Duodenitis with bleeding (principal); F03.94 Unspecified dementia, unspecified severity, with anxiety; K57.31 Diverticulosis of large intestine without perforation or abscess with bleeding; I10 Essential (primary) hypertension; R00.1 Bradycardia, unspecified; I95.9 Hypotension, unspecified; W06.XXXA Fall from bed, initial encounter; Y92.230 Patient room in hospital as the place of occurrence of the external cause; K29.71 Gastritis, unspecified, with bleeding; D50.0 Iron deficiency anemia secondary to blood loss (chronic); Z66 Do not resuscitate; Z86.73 Personal history of transient ischemic attack (TIA), and cerebral infarction without residual deficits
CPT/HCPCS: 36415; 36430; 43239; 74177; 80053; 80061; 82607; 82746; 83036; 83540; 83550; 83735; 84100; 84443; 85014; 85018; 85025; 85610; 85730; 86850; 86900; 86920; 87426; 88305; 94664; 96372; 99285; A4570; C9113; G0121; J0461; J2060; J2704; J3420; J3490; J7030; J7799; P9016; Q9967

== ENCOUNTER 2022-09-09 10:11 | Emergency (ER) | payer MEDICARE, OTHER, SELFPAY ==
[2022-09-09] VITALS (20 sets, daily range): BP systolic 110–163; BP diastolic 59–96; PULSE 61–72; RESP 13–19; TEMP 36.6; O2SAT 92–100; BMI 28.1
--- NOTE | 2022-09-09 10:17 | XRR_ITS ---
PROCEDURE INFORMATION: Exam: XR Chest Exam date and time: 09/09/2022 10:33 AM Age: 82 years old Clinical indication: Shortness of breath; Additional info: AMS TECHNIQUE: Imaging protocol: Radiologic exam of the chest. Views: 1 view. COMPARISON: CR (CHEST, ) 07/21/2021 6:41 AM FINDINGS: Lungs: There are the mildly decreased lung volumes. Mild bilateral basilar interstitial opacities are seen, left more than right. These findings could represent multifocal pneumonia. Recommend correlation with clinical findings and follow-up. Pleural spaces: No pleural effusion. No pneumothorax. Heart/Mediastinum: The heart size is normal. There is a mildly tortuous thoracic aorta. The trachea is midline. Bones/joints: No acute osseous abnormalities seen. Mild shoulder degenerative changes are seen. Generalized osteopenia. Soft tissues: Multiple external densities are seen overlying the chest, limiting assessment. XR/XR chest 1V portable [id number] IMPRESSION: Mildly decreased lung volumes. Mild bilateral basilar interstitial opacities, left more than right. These findings could represent multifocal pneumonia. Recommend correlation with clinical findings and follow-up.
--- NOTE | 2022-09-09 10:18 | CTR_ITS ---
PROCEDURE INFORMATION: Exam: CT Head Without Contrast Exam date and time: 09/09/2022 10:36 AM Age: 82 years old Clinical indication: Altered mental status/memory loss; Additional info: AMS TECHNIQUE: Imaging protocol: Computed tomography of the head without contrast. Radiation optimization: All CT scans at this facility use at least one of these dose optimization techniques: automated exposure control; mA and/or kV adjustment per patient size (includes targeted exams where dose is matched to clinical indication); or iterative reconstruction. Other protocol: This patient has received [address] and 0 known cardiac nuclear medicine studies in the 12 months prior to the current study. COMPARISON: CT head wo con* [id number] 07/21/2021 9:26 AM RADIATION DOSE METRICS: Total DLP (mGy-cm): 1029.64 FINDINGS: Brain: There is unchanged brain parenchymal atrophy, related to the patient's age. Unchanged moderate to severe nonspecific white matter changes are seen. Unchanged small bilateral basal ganglion old lacunar infarcts. There are no intracranial masses, mass effect or midline shift. There is no cerebral edema. There is no subarachnoid hemorrhage. There are no intra-or extra-axial fluid collections, intraventricular or intraparenchymal hemorrhage. Some punctate foci of air are seen in the left cavernous sinus and left jugular bulb region. This may be related to introduction of IV air. Intracranial mild atherosclerotic vascular calcifications are seen. No definite areas of low attenuation or meza-white matter junction obscuration seen on the noncontrast CT to suggest a subacute stroke - although the underlying white matter changes limit assessment. Cerebral ventricles: Unchanged mildly dilated ventricles are seen. This may be related to the generalized brain parenchymal atrophy or could be related to normal pressure hydrocephalus. Recommend correlation with clinical exam findings and neurological findings. CSF nuclear cisternogram may be performed for complete assessment, if there is clinical concern. The suprasellar and basilar cisterns appear unremarkable. Paranasal sinuses: The visualized sinuses are unremarkable. Mastoid air cells: The visualized mastoids are unremarkable. Orbital cavities: The visualized orbits are unremarkable. Bones/joints: No definite acute osseous or skull abnormalities seen. Soft tissues: Unremarkable. Some punctate foci of air are seen in the left channel man space soft tissues. Notes: If there is further clinical concern for intracranial pathology, MRI of the brain may be performed for further assessment. CT/CT head wo con* [id number] IMPRESSION: 1. Atrophic changes, as noted above. Unchanged mildly dilated ventricles. No non-contrast CT evidence of intracranial hemorrhage, masses or subacute stroke. 2. Some punctate foci of air seen in the left cavernous sinus and left jugular bulb region. This may be related to introduction of IV air.
[2022-09-09 10:19] LABS: Glucose Point of Care 128 mg/dL (70-110)
--- NOTE | 2022-09-09 10:26 | ECG_ITS ---
[facility] Test Date: 2022-09-09 Pat Name: Kelton Tolbert Department: Room: Gender: Male Mainframe Consultant: : [id number] Requested By: Loretta Segovia Order Number: [id number] Ashley MD: uSng Walker M.D. Measurements Intervals [place] Rate: 61 P: 60 IN: 218 QRS: -2 QRSD: 98 T: 44 QT: 432 QTc: 438 Interpretive Statements SINUS RHYTHM WITH FIRST DEGREE AV BLOCK NONSPECIFIC ST & T-WAVE ABNORMALITY Compared to ECG 07/21/2021 07:00:06 First degree AV block now present T-wave abnormality now present Left-axis deviation no longer present Left ventricular hypertrophy no longer present ST (T wave) deviation no longer present Myocardial infarct finding no longer present Electronically Signed On 09-09-2022 11:18:30 LOCKSTITCH FRONT EDGE TAPE SEWER by Sung Walker M.D. [email or web address] hospital for women and infantsGenasyssumma health wad[email or web address] [email or web address]/[id number]
--- NOTE | 2022-09-09 10:29 | PC.NURSE ---
pt received wrong medications as follows: 12.5mg coreg, 50mg januvia, 5mg glipazide, iron, 1000mg metformin, and 150mg zoloft at 0650 this morning
[2022-09-09 10:31] LABS: Basophils % 0.3 %; Eosinophils # 0.1 10^3/uL (0.0-0.8); Eosinophils % 0.8 %; Hematocrit 41.6 % (42.0-52.0); Hemoglobin 12.8 g/dL (11.7-16.6); Lymphocytes # 0.9 10^3/uL (0.8-4.8); Lymphocytes % 6.3 %; Mean Corpuscular HGB Conc 30.8 g/dL (30.0-36.0); Mean Platelet Volume 10.8 fL (7.4-10.4); Monocytes # 0.8 10^3/uL (0.2-0.9); Monocytes % 5.2 %; Neutrophils # 12.54 10^3/uL (1.8-7.7); Nucleated Red Blood Cells % 0 %; Platelet Count 237 10^3/cmm (130-400); Red Blood Count 4.57 10^6/uL (4.1-5.3); Red Cell Distribution Width 12.6 % (12.1-15.1); White Blood Count 14.4 10^3/uL (4.0-10.0)
[2022-09-09 10:39] LABS: INR 0.97 (0.8-1.2)
--- NOTE | 2022-09-09 10:41 | ED_ITS ---
HPI - Altered Mental Status General: Chief Complaint: Altered Mental Status Stated Complaint: MEDICATION ERROR; AMS; BRADYCARDIA Time Seen by Provider: 09/09/22 10:12 History of Present Illness: This patient is an 82 year old presenting from a dementia unit at a halfway, transported by EMS, for an episode of unresponsiveness and low BP. It is reported that he accidentally was given another residents medications this morning instead of his own, and then a while later became unresponsive. He was reported by the PA to have a very low heart rate and BP. The medications given included coreg, januvia and metformin. Blood glucose has been ok. EMS roused him with a sternal rub, and for them his BP and HR have been within normal range. The patient is not diabetic. He is n ormally on metoprolol. [facility] ED PFSH: Medical History Anxiety CVA (cerebral vascular accident) Dementia DNR (do not resuscitate) Hypertension Restless leg syndrome Social History Smoking and tobacco status: unknown if ever smoked Alcohol intake: unknown Household members: other Housing: Senior [facility] Physical Exam Const: EXAM LIMITATIONS: other limitations (Dementia) GENERAL APPEARANCE: cooperative and comfortable ORIENTATION/CONSCIOUSNESS: Yes awake, Yes oriented to person and Yes oriented to place (Knows that he is in a hospital but does not know what town) HENMT: COMMON NORMALS: normocephalic and atraumatic HEAD & SCALP: normocephalic and atraumatic Eye: COMMON NORMALS: Equal, round and reactive pupils present, EOMs intact bilaterally and conjunctivae normal CONJUNCTIVA: Yes conjunctivae normal PUPIL: Yes Equal, round and reactive pupils present Neck/C-Spine: COMMON NORMALS: full ROM and no meningeal signs Chest: COMMONS NORMALS: normal inspection of the chest Resp: COMMON NORMALS: normal respiratory effort and clear to auscultation bilaterally AUSCULTATION: clear to auscultation bilaterally Cardio: COMMON NORMALS: regular rate, regular rhythm, S1 normal heart sound present and S2 normal heart sound present RATE: regular rate RHYTHM: regular rhythm HEART SOUNDS: S1 normal heart sound present and S2 normal heart sound present GI: COMMON NORMALS: Normal to inspection, nondistended, normoactive bowel sounds present Extremity: COMMON NORMALS: negative for no pedal edema (+1 pedal edema) GENERAL: No calf tenderness Neuro: SENSORIUM/ORIENTATION: Yes oriented to person and Yes oriented to place (Knows that he is in a hospital but does not know what town) MENINGEAL SIGNS: Yes no meningeal signs SPEECH: speech normal Psych: COMMON NORMALS: cooperative (Complains a lot about being woken up and disturbed) Skin: COMMON NORMALS: no rashes or lesions noted GENERAL SKIN EXAM: no rashes or lesions noted Course Vital Signs: Vital signs: Vital Signs Temperature 98 F 09/09/22 10:12 Pulse Rate 61 09/09/22 11:00 Respiratory Rate 17 09/09/22 11:00 Blood Pressure 121/64 09/09/22 11:00 Pulse Oximetry 94 09/09/22 11:00 Oxygen Delivery Me thod 09/09/22 10:12 MDM - Altered Mental Status Medical Decision Making Patient was given the wrong medicines at the PA today - including glipizide - which I was not initially aware of. He has not been hypoglycemic here, and did eat some lunch. It is unclear if his episode of unresponsiveness at the PA was due to the medications - it seems unlikely but possible. He does have elevated creatitine today - 1.8 which is above his baseline of near normal. Slightly elevated WBC as well. No fever. no cough. No chest pain or trouble breathing. Mental status seems to be at baseline. Normal vitals here. He refused to give a urine specimen and we did not feel that it was necessary to force a straight cath on him. I anticipate that the PA should be able to get a urine at some point, and recommended such. I also am recommending frequent glucose checks to make sure he does not become hypoglycemic, and to push fluids due to the kidney injury. I also recommended a BMP in 2 days and he did get a liter of NS here. Lab Data 09/09/22 10:18 09/09/22 10:18 Radiology Impressions Chest X-Ray 09/09/22 10:17 IMPRESSION: Mildly decreased lung volumes. Mild bilateral basilar interstitial opacities, left more than right. These findings could represent multifocal pneumonia. Recommend correlation with clinical findings and follow-up. Head CT 09/09/22 10:18 IMPRESSION: 1. Atrophic changes, as noted above. Unchanged mildly dilated ventricles. No non-contrast CT evidence of intracranial hemorrhage, masses or subacute stroke. 2. Some punctate foci of air seen in the left cavernous sinus and left jugular bulb region. This may be related to introduction of IV air. Laboratory Results WBC 14.4 10^3/uL (4.0-10.0) H 09/09/22 10:18 RBC 4.57 10^6/uL (4.1-5.3) 09/09/22 10:18 Hgb 12.8 g/dL (11.7-16.6) 09/09/22 10:18 Hct 41.6 % (42.0-52.0) L 09/09/22 10:18 MCV 91.0 fl (80-94) 09/09/22 10:18 MCH 28.0 pg (28.0-34.0) 09/09/22 10:18 MCHC 30.8 g/dL (30.0-36.0) 09/09/22 10:18 RDW 12.6 % (12.1-15.1) 09/09/22 10:18 Plt Count 237 10^3/cmm (130-400) 09/09/22 10:18 MPV 10.8 fL (7.4-10.4) H 09/09/22 10:18 Neut % (Auto) 87.0 % 09/09/22 10:18 Lymph % (Auto) 6.3 % 09/09/22 10:18 [place] % (Auto) 5.2 % 09/09/22 10:18 Eos % (Auto) 0.8 % 09/09/22 10:18 Baso % (Auto) 0.3 % 09/09/22 10:18 Neut # (Auto) 12.54 10^3/uL (1.8-7.7) H 09/09/22 10:18 Lymph # (Auto) 0.9 10^3/uL (0.8-4.8) 09/09/22 10:18 [place] # (Auto) 0.8 10^3/uL (0.2-0.9) 09/09/22 10:18 Eos # (Auto) 0.1 10^3/uL (0.0-0.8) 09/09/22 10:18 Baso # (Auto) 0.0 10^3/uL (0.0-0.1) 09/09/22 10:18 Nucleated RBC % (auto) 0 % 09/09/22 10:18 Nucleated RBCs # 0.0 /100WBC 09/09/22 10:18 PT 13.10 SECONDS (12.1-14.9) 09/09/22 10:18 INR 0.97 (0.8-1.2) 09/09/22 10:18 Sodium 139 mmol/L (136-145) 09/09/22 10:18 Potassium 4.2 mmol/L (3.5-5.1) 09/09/22 10:18 Chloride 101 mmol/L (98-107) 09/09/22 10:18 Carbon Dioxide 25 mmol/L (22-29) 09/09/22 10:18 Anion Gap 17.2 (5-19) 09/09/22 10:18 BUN 24 mg/dL (8-23) H 09/09/22 10:18 Creatinine 1.8 mg/dL (0.7-1.2) H 09/09/22 10:18 GFR Calculation Not Reportable 09/09/22 10:18 Glucose 133 mg/dL (65-115) H 09/09/22 10:18 POC Glucose 80 mg/dL (70-110) 09/09/22 13:33 Calculated Osmolality 294 mOsm/kg (285-295) 09/09/22 10:18 Calcium 9.9 mg/dL (8.5-10.5) 09/09/22 10:18 Magnesium 2.4 mg/dL (1.7-2.3) H 09/09/22 10:18 Total Bilirubin 0.3 mg/dL (0.15-1.2) 09/09/22 10:18 AST 14 U/L (0-40) 09/09/22 10:18 ALT 7 U/L (0-41) 09/09/22 10:18 Alkaline Phosphatase 110 U/L (40-130) 09/09/22 10:18 Troponin T Baseline 42 ng/L (0-15) H 09/09/22 10:18 Troponin T 120 Minute 37.94 ng/L (0-15) H 09/09/22 12:11 Delta Troponin T -4.06 ABS# (0-10) L 09/09/22 12:11 Total Protein 7.4 g/dL (6.6-8.7) 09/09/22 10:18 Albumin 4.2 g/dL (3.5-5.2) 09/09/22 10:18 Globulin 3.2 g/dL (1.3-4.6) 09/09/22 10:18 Lipase 36 U/L (13-60) 09/09/22 10:18 TSH 2.91 uIU/mL (0.27-4.20) 09/09/22 10:18 Discharge Plan Discharge Patient Disposition: Home Clinical Impression: Acute alteration in mental status, Medication administered in error, Dementia, Acute kidney injury, DNR (do not resuscitate) Condition: Stable Prescriptions: No Action amoxicillin 500 mg tablet 1,000 mg PO BID 14 Days Qty: 56 0RF clarithromycin 500 mg tablet 500 mg PO BID 14 Days Qty: 28 0RF Tylenol 325 mg Tablet 650 mg PO Q4H PRN (Reason: Pain) donepezil 5 mg Tablet 5 mg PO DAILY Keppra 500 mg Tablet 500 mg PO BID Zyprexa 2.5 mg Tablet 2.5 mg PO BID Milk of Magnesia 400 mg/5 mL Suspension 30 ml PO DAILY PRN (Reason: Constipation) amlodipine 10 mg Tablet 10 mg PO DAILY Dulcolax (bisacodyl) 10 mg Suppository 10 mg [place] DAILY PRN (Reason: Constipation) Mirapex 0.25 mg Tablet 0.25 mg PO BEDTIME aspirin 81 mg Tablet,Chewable 81 mg PO DAILY Hold Instructions: Resume on 06/30/22. Ativan 1 mg Tablet 1 mg PO Q6H PRN (Reason: Anxiety) Miralax 17 gram/dose Powder 17 g PO DAILY Namenda 5 mg Tablet 5 mg PO QAM cyanocobalamin (vitamin B-12) 500 mcg tablet 500 mcg PO DAILY Qty: 30 0RF Protonix 40 mg tablet,delayed release (DR/EC) 40 mg PO BID Qty: 60 0RF metoprolol tartrate 25 mg Tablet 12.5 mg PO BID Qty: 30 0RF Discharge Orders: Discharge ED (Routine); Ordered 09/09/22 Ordered By: Loretta May Referrals: Allan Peñaloza DO [Primary Care Provider] - Discharge Diet: Usual diet Discharge Activity: Resume usual activity Patient Instructions: Opioid Safety, Pain Management Activity Restrictions/Additional Instructions: Check blood glucose every 2 hours until dinner, then every 4 hours over night. Encourage good fluid intake, and Mr. Tolbert needs a BMP done in about 2 days to recheck his kidney function. He should also have a urinalysis done. Continue regular medications. Coding Level of Care Code ED Marine [employer] Resource Specialist for Vern Lopez
[2022-09-09 10:50] LABS: Troponin(5th) Baseline 42 ng/L (0-15)
[2022-09-09 10:59] LABS: Glucose Point of Care 123 mg/dL (70-110)
--- NOTE | 2022-09-09 11:01 | PC.NURSE ---
spoke with Matthew, a pharmacist with [facility] regarding medications pt took. Recommended to monitor blood glucose and blood pressure. pt may have drowsiness and fatigue from Zoloft, N/V is unlikely but possible, as well as dry mouth and mild tachycardia. Dr. May updated
[2022-09-09 11:03] LABS: Alanine Aminotransferase 7 U/L (0-41); Albumin Level 4.2 g/dL (3.5-5.2); Alkaline Phosphatase 110 U/L (40-130); Aspartate Amino Transferase 14 U/L (0-40); Blood Urea Nitrogen 24 mg/dL (8-23); Calcium 9.9 mg/dL (8.5-10.5); Carbon Dioxide 25 mmol/L (22-29); Chloride 101 mmol/L (98-107); Globulin 3.2 g/dL (1.3-4.6); Glucose 133 mg/dL (65-115); Lipase 36 U/L (13-60); Magnesium 2.4 mg/dL (1.7-2.3); Osmolality Calculated 294 mOsm/kg (285-295); Sodium 139 mmol/L (136-145); Thyroid Stimulating Hormone 2.91 uIU/mL (0.27-4.20); Total Bilirubin 0.3 mg/dL (0.15-1.2); Total Protein 7.4 g/dL (6.6-8.7)
[2022-09-09 11:26] LABS: Anion Gap 17.2 (5-19); Potassium 4.2 mmol/L (3.5-5.1)
[2022-09-09 11:30] LABS: Glucose Point of Care 130 mg/dL (70-110)
[2022-09-09 12:02] LABS: Glucose Point of Care 93 mg/dL (70-110)
--- NOTE | 2022-09-09 12:21 | ECG_ITS ---
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 Measurements Intervals [place] Rate: 65 P: 67 FL: 265 QRS: -11 QRSD: 93 T: 66 QT: 388 QTc: 404 Interpretive Statements SINUS RHYTHM WITH FIRST DEGREE AV BLOCK NONSPECIFIC ST & T-WAVE ABNORMALITY Compared to ECG 09/09/2022 10:26:40 No significant changes Electronically Signed On 09-09-2022 21:43:38 BUILDING CONSTRUCTION SUPERINTENDENT by Sung Walker M.D. [email or web address]
[2022-09-09] MEDS: sodium chloride 0.9% 1,000 ML 999 ML IV (12:30)
[2022-09-09 12:33] LABS: Glucose Point of Care 94 mg/dL (70-110)
[2022-09-09 12:48] LABS: Troponin 5 2HR 37.94 ng/L (0-15)
[2022-09-09 12:51] LABS: Troponin 5 2HR Delta -4.06 ABS# (0-10)
[2022-09-09 13:09] LABS: Glucose Point of Care 83 mg/dL (70-110)
--- NOTE | 2022-09-09 13:35 | PC.NURSE ---
ED physician notified of pt blood glucose, physician wanting pt to eat. pt assisted by ED resident with eating a snack, pt had chocolate pudding and apple juice
[2022-09-09 13:38] LABS: Glucose Point of Care 80 mg/dL (70-110)
--- NOTE | 2022-09-09 13:58 | PC.NURSE ---
pt resting in bed, checked brief for any incontinence. brief remains dry.
[2022-09-09 13:59] LABS: Glucose Point of Care 88 mg/dL (70-110)
--- NOTE | 2022-09-09 14:48 | PC.NURSE ---
REPORT CALLED TO [facility] AT [facility].
[2022-09-09 14:51] LABS: Glucose Point of Care 91 mg/dL (70-110)
== END 2022-09-09 14:53 | disposition home or self-care (01) ==
PROVIDERS: Emergency Provider Emergency Medicine; PCP Internal Medicine
DX: R41.82 Altered mental status, unspecified (principal); F03.90 Unspecified dementia, unspecified severity, without behavioral disturbance, psychotic disturbance, mood disturbance, and anxiety; N17.9 Acute kidney failure, unspecified; T50.911A Poisoning by multiple unspecified drugs, medicaments and biological substances, accidental (unintentional), initial encounter
CPT/HCPCS: 36416; 70450; 71045; 80053; 82962; 83690; 83735; 84443; 84484; 85025; 85610; 93005; 96360; 99285; J7030

== ENCOUNTER → 2023-10-04 10:03 | Outpatient (BNVA) | payer MEDICARE, OTHER, SELFPAY | PROVIDERS: PCP Internal Medicine; Visit Provider Nurse Practitioner Family | DX: L89.311 Pressure ulcer of right buttock, stage 1 (principal); L40.0 Psoriasis vulgaris; R60.0 Localized edema; L57.8 Other skin changes due to chronic exposure to nonionizing radiation; L81.4 Other melanin hyperpigmentation | CPT/HCPCS: 99204 ==

== ENCOUNTER 2023-12-04 13:26 | Emergency (ER) | payer MEDICARE, OTHER, SELFPAY ==
[2023-12-04 13:28] VITALS: BP 124/82; PULSE 59; RESP 18; TEMP 36.8; O2SAT 96; BMI 26.6
--- NOTE | 2023-12-04 13:40 | PC.NURSE ---
PATIENT GRABBED ON TO NURSING STUDENTS HAND AND BEGAN TO SQUEEZE AND PUNCH. NURSE REDIRECTED STATING THAT PATIENT WOULD NOT GRAB OR PINCH NURSING STAFF. PATIENT THEN HIT NURSE IN THE STOMACH WITH FIST. NO INJURY. PATIENT THEN ATTEMPTED TO SPIT AT NURSE BUT WAS REDIRECTED. PATIENT MOVED TO ROOM 9. 1:1 SITTER PRESENT.
[2023-12-04] MEDS: haloperidol inj 5 mg/mL INJ 1 mL 2.5 MG IVP (14:13)
--- NOTE | 2023-12-04 14:14 | PC.NURSE ---
PATIENT 0.5 ML, 2.5 MG HALOPERIDOL WASTED WITH ERIC KEARNS.
--- NOTE | 2023-12-04 14:37 | PC.NURSE ---
PATIENT AGGRESSIVE WITH STAFF. PATIENT CONTINUES TO ATTEMPT TO GET OUT OF BED. PATIENT ALSO ATTEMPTED TO HIT MULTIPLE STAFF, HIT MULTIPLE STAFF, AND SPIT ON STAFF. PATIENT WRISTS RESTRAINED PER PROVIDER. PATIENT MASK APPLIED TO FACE TO PREVENT SPITTING.
[2023-12-04] MEDS: LORazepam 2 mg/mL INJ 10 mL MDV 1 MG IVP (14:49)
--- NOTE | 2023-12-04 14:52 | ED_ITS ---
HPI - Altered Mental Status General: Chief Complaint: Altered Mental Status Stated Complaint: AMS/ N/V Time Seen by Provider: 12/04/23 13:33 History of Present Illness: 83-year-old male presents emergency depa rtment from [facility] via EMS personnel. Patient is a unreliable historian given his longstanding dementia. EMS personnel state that the [facility] staff became concerned as the patient had an episode of vomiting and then stated he became unresponsive. The patient has been awake and at his baseline mental status per EMS since their arrival and he has been at his baseline mental status here in the emergency department since arrival. Review of Systems General: Reports: ROS unobtainable due to medical condition and ROS unobtainable due to mental status [facility] ED PFSH: Medical History Anxiety CVA (cerebral vascular accident) Dementia DNR (do not resuscitate) Hypertension Restless leg syndrome Social History Smoking and tobacco/nicotine status: unknown if used tobacco/nicotine Alcohol intake: unknown Substance/Drug Use: unknown Household members: other Housing: [facility] Physical Exam Narrative: General: Alert, no acute distress. Skin: Warm, dry, Intact. Head: Normocephalic, atraumatic. Neck: Supple, trachea midline. Eye: Extraocular movements are intact. PERRLA Ears, nose, mouth and throat: mucosa moist. Cardiovascular: Regular, Normal peripheral perfusion. Respiratory: Lungs are clear to auscultation, respirations are non-labored, breath sounds are equal, Symmetrical chest wall expansion. Gastrointestinal: Soft, Nontender, Non distended, Normal bowel sounds. Musculoskeletal: Normal ROM, no deformity. Neurological: Alert and at his baseline given his longstanding diagnosis of dementia., No focal neurological deficit observed. Psychiatric: Intermittent aggressive behavior. Course Vital Signs: Vital signs: Vital Signs Temperature 98.3 F 12/04/23 13:28 Pulse Rate 84 12/04/23 20:32 Respiratory Rate 15 12/04/23 20:32 Blood Pressure 173/82 12/04/23 20:32 Pulse Oximetry 96 12/04/23 20:32 Oxygen Delivery Me thod Room Air 12/04/23 20:19 MDM - Altered Mental Status Medical Decision Making Physical exam completed and documented I did speak with the patient's family member Edi Tolbert and he stated that the patient is intermittently been aggressive in the past. I did discuss obtaining labs and at present the DPOA and myself agree that this would be of no benefit. I suspect most likely the patient's symptoms are due to his progressing dementia. I did advise the power of nuclear waste management engineer that I provided the patient Haldol and we will have him follow-up with his care facility physician for additional adjustments in his medication given his aggressive behavior and his dementia. Medical Records I reviewed the patient's medical records. No radiology studies performed this visit Discharge Plan Discharge Patient Disposition: Home Clinical Impression: Dementia Qualifiers: Dementia type: unspecified type Dementia severity: severe Dementia behavioral or psychological symptom: with agitation Qualified Code(s): F03.C11 - Unspecified dementia, severe, with agitation Condition: Stable Prescriptions: No Action Keppra 500 mg Tablet 500 mg PO BID@07,19 donepezil 10 mg Tablet 10 mg PO BEDTIME@21 Ultram 50 mg Tablet 50 mg PO Q6H PRN (Reason: Pain) triamcinolone acetonide 0.1 % Cream See Rx Instructions .ROUTE .COMPLEX Rx Instructions: DIRECTED Dulcolax (bisacodyl) 10 mg Suppository 10 mg AL DAILY PRN (Reason: Constipation) Mirapex 0.25 mg Tablet 0.25 mg PO BEDTIME@19 Risperdal 0.5 mg Tablet 0.5 mg PO TID@08,14,20 calcipotriene 0.005 % Ointment See Rx Instructions .ROUTE .COMPLEX Rx Instructions: APPLY A THIN FILM TO AFFECTED PLAQUES OF BODY hydrocortisone 2.5 % Kit See Rx Instructions .ROUTE .COMPLEX Rx Instructions: APPLY TO NAVAL AREA BID EVERY MONTH STARTING ON THE FOR 14 DAYS FOR DRY CRUSTY AREAS ON SKIN-APPLY TOPICALLY TO NAVAL PLAQUE BID DAILY BUT NOT MORE THAN 2 WEEKS IN 1 MONTH metoprolol tartrate 25 mg tablet 12.5 mg PO BID@07,19 acetaminophen [Tylenol] 325 mg Tablet 650 mg PO Q4H PRN (Reason: Pain) magnesium hydroxide [Milk of Magnesia] 400 mg/5 mL Suspension 30 ml PO DAILY PRN (Reason: Constipation) amlodipine 10 mg Tablet 10 mg PO DAILY@07 Rx Instructions: hold for sbp of 100 or pulse of less than 60 aspirin 81 mg Tablet,Chewable 81 mg PO DAILY@07 Hold Instructions: Resume on 06/30/22. lorazepam [Ativan] 1 mg Tablet 1 mg PO Q6H PRN (Reason: Agitation) polyethylene glycol 3350 [Miralax] 17 gram/dose Powder 17 g PO DAILY@07 Discharge Orders: Discharge ED (Routine); Ordered 12/04/23 Ordered By: Yoandy Giraldo Referrals: Allan Peñaloza, [Primary Care Provider] - Discharge Diet: Usual diet Discharge Activity: Resume usual activity Patient Instructions: Altered Mental Status (ED), Opioid Safety, Pain Betty gement Activity Restrictions/Additional Instructions: Activity Restrictions/Additional Instructions: Thank you for choosing [facility] for your healthcare needs today. Please realize that you were seen in the Emergency Department and that we are providing you with an emergency medical screening exam and this may not be a complete and all inclusive of all the testing and or medical work-up that you may need to determine your ailment or severity of your illness. It is very important that you follow-up as instructed with your Primary care provider or Specialist for additional evaluation and to discuss your medical treatment plan. Coding Level of Care Code ED Restorative Coordinator for Vern Lopez
--- NOTE | 2023-12-04 15:57 | PC.NURSE ---
PATIENT CONTINUES TO BE COMBATIVE WITH STAFF. PATIENT RESTRAINTS REMAIN IN PLACE. PATIENT LINENS AND DEPENDS CHANGED.
[2023-12-04 18:09] VITALS: BP 174/83; PULSE 80; O2SAT 96
[2023-12-04 20:19] VITALS: BP 173/82; PULSE 84; RESP 15; O2SAT 96
--- NOTE | 2023-12-04 20:25 | PC.NURSE ---
dr hendrix removed restraints at 20:00, pt calm without injury to restaint location
--- NOTE | 2023-12-04 20:28 | PC.NURSE ---
pt appeared agitated at this time, pt rocking back and forth in bed.
--- NOTE | 2023-12-04 20:31 | PC.NURSE ---
pt was deemed at this time to be able to have restraints removed. physician approved at this time.
[2023-12-04 20:32] VITALS: BP 173/82; PULSE 84; RESP 15; O2SAT 96
== END 2023-12-04 20:40 | disposition home or self-care (01) ==
PROVIDERS: Emergency Provider Internal Medicine; PCP Internal Medicine
DX: F03.C11 Unspecified dementia, severe, with agitation (principal); Z79.82 Long term (current) use of aspirin; Z86.73 Personal history of transient ischemic attack (TIA), and cerebral infarction without residual deficits; I10 Essential (primary) hypertension
CPT/HCPCS: 96374; 96375; 99284; J1630; J2060

== ENCOUNTER → 2024-01-08 13:47 | Outpatient (BNVA) | payer MEDICARE, OTHER, SELFPAY | PROVIDERS: PCP Internal Medicine; Visit Provider Nurse Practitioner Family | DX: L40.0 Psoriasis vulgaris (principal); L89.311 Pressure ulcer of right buttock, stage 1; D22.62 Melanocytic nevi of left upper limb, including shoulder | CPT/HCPCS: 99214 ==

== ENCOUNTER → 2024-02-05 10:04 | Outpatient (BNVA) | payer MEDICARE, OTHER, SELFPAY | PROVIDERS: PCP Internal Medicine; Visit Provider Nurse Practitioner Family | DX: L40.0 Psoriasis vulgaris (principal); L89.311 Pressure ulcer of right buttock, stage 1; L85.3 Xerosis cutis; D22.62 Melanocytic nevi of left upper limb, including shoulder | CPT/HCPCS: 99214 ==

== ENCOUNTER → 2024-03-18 10:20 | Outpatient (BNVA) | payer MEDICARE, OTHER, SELFPAY | PROVIDERS: PCP Internal Medicine; Visit Provider Nurse Practitioner Family | DX: L40.0 Psoriasis vulgaris (principal); L89.311 Pressure ulcer of right buttock, stage 1; L85.3 Xerosis cutis | CPT/HCPCS: 99214 ==

== ENCOUNTER → 2024-05-14 13:55 | Outpatient (BNVA) | payer MEDICARE, OTHER, SELFPAY | PROVIDERS: PCP Internal Medicine; Visit Provider Dermatology | DX: L30.9 Dermatitis, unspecified (principal); L21.8 Other seborrheic dermatitis; L40.0 Psoriasis vulgaris; L85.3 Xerosis cutis | CPT/HCPCS: 11102; 99214 ==

== ENCOUNTER → 2024-07-02 14:11 | Outpatient (BNVA) | payer MEDICARE, OTHER, SELFPAY | PROVIDERS: PCP Internal Medicine; Visit Provider Nurse Practitioner Family | DX: L21.8 Other seborrheic dermatitis (principal); L40.0 Psoriasis vulgaris; L85.3 Xerosis cutis; L57.0 Actinic keratosis | CPT/HCPCS: 99214 ==

== ENCOUNTER 2024-08-20 08:15 | Emergency (ER) | payer MEDICARE, OTHER, SELFPAY ==
[2024-08-20 08:16] VITALS: BP 133/66; PULSE 53; RESP 16; TEMP 36.8; O2SAT 99; BMI 26.6
--- NOTE | 2024-08-20 08:19 | ECG_ITS ---
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 Measurements Intervals [place] Rate: 54 P: 44 UT: 239 QRS: -28 QRSD: 106 T: 79 QT: 423 QTc: 401 Interpretive Statements SINUS BRADYCARDIA WITH FIRST DEGREE AV BLOCK POSSIBLE LEFT ATRIAL ENLARGEMENT [-0.1mV P-WAVE IN V1/V2] POSSIBLE LEFT VENTRICULAR HYPERTROPHY [VOLTAGE CRITERIA PLUS LAE OR QRS WIDENING] POSSIBLE ANTERIOR MYOCARDIAL INFARCTION , OF INDETERMINATE AGE [30 ms Q WAVE IN V3/V4, OR R < 0.2 mV IN V4] Compared to ECG 09/09/2022 12:58:55 Myocardial infarct finding now present Sinus rhythm no longer present T-wave abnormality no longer present Electronically Signed On 08-20-2024 18:19:14 ROCK SINGER by Mike Couch M.D. [id number]
--- NOTE | 2024-08-20 08:29 | XR_ITS ---
WS: [id number] Portable AP upright chest, 08/20/2024 Clinical Data: dyspnea/cough Comparison: Portable chest, 09/09/2022 Findings: There is minimal patchy opacity in the retrocardiac region extending to the left pleural lobo rface. No nodules, masses or effusions are seen. The heart is normal. The pulmonary vascularity is no t increased. No pneumonia or pneumothorax is seen. The aortic arch and descending thoracic aorta show calcification and tortuosity. There is a minimal dextroscoliosis of the thoracic spine. Monitor lead s are on the chest wall. XR/XR chest 1V portable [id number] Impression: 1. Minimal opacity in the retrocardiac region and left lower lobe which probabl y represents atelectasis but less likely pneumonia. 2. Atherosclerosis.
--- NOTE | 2024-08-20 08:33 | CT_ITS ---
WS: [id number] CT HEAD NONCONTRAST HISTORY: AMS TECHNIQUE: Contiguous axial imaging performed through the brain. Bone and soft tissue windows. Sagitt al and coronal reformats reviewed. All CT scans at [facility] use at least one of these dose optimization techniques: automated exposure control; mA and/or kV adjustment per patient size (includ es targeted exams where dose is matched to clinical indication); or iterative reconstruction. DLP: 1062.54 mGy.cm COMPARISON: 09/09/2022 No acute intracranial hemorrhage, midline shift or mass effect. Severe volume loss and atrophy in the cerebellum and cerebrum. Corresponding dilatation of the ventri cular system. Advanced small vessel disease. Prior lacunar infarct external capsule on the RIGHT. Ventricles: Diffuse ventricular dilatation related to atrophy. Heavy calcification in the distal vertebral arteries and intracranial carotid arteries. Reidentified is low-attenuation thought to be air on the prior study done at the [facility]. No change therefor e this is probably a benign lipoma. Paranasal sinuses: As visualized are clear. Mastoid air cells: Well pneumatized. Calvarium and scalp: Skull is intact with no soft tissue edema or swelling. CT/CT head wo con* [id number] IMPRESSION: 1. No acute intracranial hemorrhage or edema. 2. Severe cerebral and cerebellar atrophy with small vessel disease. 3. Advanced calcified plaque in the distal vertebral and intracranial carotid arteries.
[2024-08-20 08:52] LABS: Basophils % 0.4 %; Eosinophils # 0.1 10^3/uL (0.0-0.8); Eosinophils % 1.7 %; Hematocrit 37.7 % (37-53); Lymphocytes # 1.1 10^3/uL (0.8-4.8); Lymphocytes % 12.9 %; Mean Corpuscular HGB Conc 32.4 g/dL (30-55); Mean Corpuscular Hemoglobin 30.7 pg (27-33); Mean Corpuscular Volume 94.7 fl (82-101); Monocytes # 0.6 10^3/uL (0.2-0.9); Monocytes % 6.9 %; Neutrophils # 6.47 10^3/uL (1.8-7.7); Neutrophils % 77.5 %; Nucleated Red Blood Cells % 0 %; Platelet Count 202 10^3/cmm (157-399); Red Blood Count 3.98 10^6/uL (3.85-5.65); Red Cell Distribution Width 12.4 % (12.1-15.1); White Blood Count 8.35 10^3/uL (3.29-11.43)
[2024-08-20 09:09] LABS: Alanine Aminotransferase 9 U/L (0-41); Albumin Level 3.9 g/dL (3.5-5.2); Alkaline Phosphatase 96 U/L (40-130); Anion Gap 16.1 (5-19); Aspartate Amino Transferase 17 U/L (0-40); Blood Urea Nitrogen 31 mg/dL (8-23); Calcium 9.2 mg/dL (8.5-10.5); Carbon Dioxide 21 mmol/L (22-29); Chloride 105 mmol/L (98-107); Creatinine Clr Calc Pharmacy 35.2522; Globulin 2.4 g/dL (1.3-4.6); Glucose 158 mg/dL (65-115); Osmolality Calculated 296 mOsm/kg (285-295); Potassium 4.1 mmol/L (3.5-5.1); Sodium 138 mmol/L (136-145); Total Bilirubin 0.3 mg/dL (0.15-1.2); Total Protein 6.3 g/dL (6.6-8.7); Troponin(5th) Baseline 85 ng/L (0-15)
--- NOTE | 2024-08-20 09:17 | CT_ITS ---
WS: [id number] CT CHEST ANGIOGRAPHY WITH REFORMATS HISTORY: Elevated troponin unexplained syncopal episode TECHNIQUE: Contiguous axial images are obtained through the chest during arterial injection of intrav enous contrast. Images are reconstructed to evaluate the pulmonary arteries. MIP imaging also reviewe d. All CT scans at [facility] use at least one of these dose optimization techniques: automat ed exposure control; mA and/or kV adjustment per patient size (includes targeted exams where dose is matched to clinical indication); or iterative reconstruction. CONTRAST: Omnipaque 350; 100 mL IV. DLP: 347.02 mGy.cm COMPARISON: None available. Good distention and opacification of the pulmonary arteries. No pulmonary embolism. Mild atherosclero sis aorta. No aneurysm. Moderate enlargement of the LEFT ventricle. There is no RIGHT heart strain. C oronary arteries are moderately to heavily calcified. No enlarged mediastinal or hilar lymph nodes. Lung volumes are decreased. This is due to poor inspiration. Bilateral interstitial prominence at the lung bases would likely improved with better inspiration. There is no focal consolidation or mass. H ilar bronchial wall thickening. Thickening is greatest extending into the RIGHT lower lobe. No pneumo thorax or pleural effusion. Visualized adrenal glands are negative. Breathing motion artifact the upper abdomen. Increase in thor acic kyphosis. No destructive bone lesions. CT/CT angio chest PE protcl [id number] IMPRESSION: 1. No pulmonary embolism. 2. Study compromised by breathing motion artifact. 3. Bilateral perihilar and lower lobe bronchial wall thickening. Likely relate d to bronchitis. 4. LEFT ventricle enlargement. No RIGHT heart strain. 5. Moderate to heavily calcified coronary arteries.
--- NOTE | 2024-08-20 09:38 | W.ED.AMS ---
HPI - Altered Mental Status General: Chief Complaint: Altered Mental Status Stated Complaint: dementia, ams Time Seen by Provider: 08/20/24 08:23 History of Present Illness: 84-year-old male presents emergency room via EMS from local skilled nursing. The report was that while he was still breathing they did not have a pulse or pressure on the patient. EMS reportedly arrived he was awake and alert he is awake and alert here as well he is a full code he has a history of significant dementia. While it was reported they considered initiating CPR he never had any resuscitative efforts. Related Data Home Medications Medication Instructions Recorded Confirmed acetaminophen 325 mg tablet 650 mg PO Q4H PRN Pain 06/12/22 08/20/24 (Tylenol) amlodipine 10 mg tablet 10 mg PO DAILY@06/12/22 08/20/24 aspirin 81 mg chewable tablet 81 mg PO DAILY@06/12/22 08/20/24 magnesium hydroxide 400 mg/5 mL 30 ml PO DAILY PRN Constipation 06/12/22 08/20/24 oral suspension (Milk of Magnesia) polyethylene glycol 3350 17 17 g PO DAILY@06/12/22 08/20/24 gram/dose oral powder (Miralax) bisacodyl 10 mg rectal suppository 10 mg CA DAILY PRN Constipation 12/04/23 08/20/24 (Dulcolax (bisacodyl)) calcipotriene 0.005 % topical See Rx Instructions .Route .COMPLEX 12/04/23 08/20/24 ointment donepezil 10 mg tablet 10 mg PO BEDTIME@12/04/23 08/20/24 hydrocortisone 2.5 % topical kit See Rx Instructions .Route .COMPLEX 12/04/23 08/20/24 levetiracetam 500 mg tablet 500 mg PO BID@,12/04/23 08/20/24 (Keppra) metoprolol tartrate 25 mg tablet 12.5 mg PO BID@,12/04/23 08/20/24 pramipexole 0.25 mg tablet 0.25 mg PO BEDTIME@12/04/23 08/20/24 risperidone 0.5 mg tablet 0.5 mg PO TID@08,14,20 12/04/23 08/20/24 (Risperdal) tramadol 50 mg tablet 50 mg PO Q6H PRN Pain 12/04/23 08/20/24 triamcinolone acetonide 0.1 % See Rx Instructions .Route .COMPLEX 12/04/23 08/20/24 topical cream alprazolam 0.25 mg tablet (Xanax) 0.25 mg PO BID PRN Agitation 08/20/24 08/20/24 clobetasol 0.05 % topical cream 1 applic topical BID 08/20/24 08/20/24 emollient (Vanicream topical) See Rx Instructions .Route .COMPLEX 08/20/24 08/20/24 ketoconazole 2 % topical cream 1 applic topical DAILY to face 08/20/24 08/20/24 mupirocin 2 % topical ointment 1 applic topical BID 08/20/24 08/20/24 tacrolimus 0.1 % in vehicle base See Rx Instructions .Route .COMPLEX 08/20/24 08/20/24 no.238 topical cream Allergies Allergy/AdvReac Type Severity Reaction Status Date / Time No Known Allergies Allergy Verified 07/21/21 05:58 Review of Systems General: Reports: ROS unobtainable due to mental status (Dementia) [facility] ED PFSH: Medical History DNR (do not resuscitate) Restless leg syndrome CVA (cerebral vascular accident) Anxiety Hypertension Dementia Social History Smoking and tobacco/nicotine status: never used tobacco/nicotine Alcohol intake: unknown Substance/Drug Use: unknown Household members: other Housing: Correction Physical Exam Const: COMMON NORMALS: no acute distress GENERAL APPEARANCE: cooperative HENMT: COMMON NORMALS: normocephalic, atraumatic and hearing grossly normal bilaterally HEAD & SCALP: normocephalic and atraumatic Resp: COMMON NORMALS: normal respiratory effort, No retractions, No use of accessory muscles and clear to auscultation bilaterally AUSCULTATION: clear to auscultation bilaterally Cardio: COMMON NORMALS: regular rate, regular rhythm and No murmurs present (Cardio) RATE: regular rate RHYTHM: regular rhythm GI: COMMON NORMALS: Soft to palpation and No hepatosplenomegaly present AUSCULTATION: Yes normoactive bowel sounds PALPATION: Yes Soft to palpation, No Tenderness to palpation present (GI), No Guarding due to palpation present (GI) and Yes No hepatosplenomegaly present Extremity: COMMON NORMALS: normal to inspection, capillary refill normal, no clubbing, cyanosis or edema, no calf tenderness and no pedal edema Skin: COMMON NORMALS: no rashes or lesions noted GENERAL SKIN EXAM: no rashes or lesions noted Course Vital Signs: Vital signs: Vital Signs Temperature 98.2 F 08/20/24 08:16 Pulse Rate 54 L 08/20/24 12:05 Respiratory Rate 16 08/20/24 08:16 Blood Pressure 132/71 08/20/24 12:05 Pulse Oximetry 100 08/20/24 12:05 Oxygen Delivery Me thod Nasal Cannula 08/20/24 12:05 Oxygen Flow Rate 2.5 08/20/24 12:05 MDM - Altered Mental Status Medical Decision Making CT of the chest was negative currently [place] already regular about his baseline. Cardiac enzymes negative EKG not show anything acute. Patient would desat when he dozed off but when awake he otherwise had a normal oxygen saturation. No acute findings at this time will discharge patient home follow-up with his primary care at the skilled nursing Medical Records I reviewed the patient's medical records. Lab Data I reviewed the patient's lab results. 08/20/24 08:45 08/20/24 08:45 Radiology Impressions Chest X-Ray 08/20/24 08:29 Impression: 1. Minimal opacity in the retrocardiac region and left lower lobe which probably represents atelectasis but less likely pneumonia. 2. Atherosclerosis. Head CT 08/20/24 08:33 IMPRESSION: 1. No acute intracranial hemorrhage or edema. 2. Severe cerebral and cerebellar atrophy with small vessel disease. 3. Advanced calcified plaque in the distal vertebral and intracranial carotid arteries. Chest CTA 08/20/24 09:17 IMPRESSION: 1. No pulmonary embolism. 2. Study compromised by breathing motion artifact. 3. Bilateral perihilar and lower lobe bronchial wall thickening. Likely related to bronchitis. 4. LEFT ventricle enlargement. No RIGHT heart strain. 5. Moderate to heavily calcified coronary arteries. Laboratory Results WBC 8.35 10^3/uL (3.29-11.43) 08/20/24 08:45 RBC 3.98 10^6/uL (3.85-5.65) 08/20/24 08:45 Hgb 12.20 g/dL (11.27-16.99) 08/20/24 08:45 Hct 37.7 % (37-53) 08/20/24 08:45 MCV 94.7 fl (82-101) 08/20/24 08:45 MCH 30.7 pg (27-33) 08/20/24 08:45 MCHC 32.4 g/dL (30-55) 08/20/24 08:45 RDW 12.4 % (12.1-15.1) 08/20/24 08:45 Plt Count 202 10^3/cmm (157-399) 08/20/24 08:45 MPV 10.0 fL (7.4-10.4) 08/20/24 08:45 Neut % (Auto) 77.5 % 08/20/24 08:45 Lymph % (Auto) 12.9 % 08/20/24 08:45 [place] % (Auto) 6.9 % 08/20/24 08:45 Eos % (Auto) 1.7 % 08/20/24 08:45 Baso % (Auto) 0.4 % 08/20/24 08:45 Neut # (Auto) 6.47 10^3/uL (1.8-7.7) 08/20/24 08:45 Lymph # (Auto) 1.1 10^3/uL (0.8-4.8) 08/20/24 08:45 [place] # (Auto) 0.6 10^3/uL (0.2-0.9) 08/20/24 08:45 Eos # (Auto) 0.1 10^3/uL (0.0-0.8) 08/20/24 08:45 Baso # (Auto) 0.0 10^3/uL (0.0-0.1) 08/20/24 08:45 Nucleated RBC % (auto) 0 % 08/20/24 08:45 Nucleated RBCs # 0.0 /100WBC 08/20/24 08:45 Sodium 138 mmol/L (136-145) 08/20/24 08:45 Potassium 4.1 mmol/L (3.5-5.1) 08/20/24 08:45 Chloride 105 mmol/L (98-107) 08/20/24 08:45 Carbon Dioxide 21 mmol/L (22-29) L 08/20/24 08:45 Anion Gap 16.1 (5-19) 08/20/24 08:45 BUN 31 mg/dL (8-23) H 08/20/24 08:45 Creatinine 1.5 mg/dL (0.7-1.2) H 08/20/24 08:45 GFR Calculation Not Reportable 08/20/24 08:45 Glucose 158 mg/dL (65-115) H 08/20/24 08:45 Calculated Osmolality 296 mOsm/kg (285-295) H 08/20/24 08:45 Calcium 9.2 mg/dL (8.5-10.5) 08/20/24 08:45 Total Bilirubin 0.3 mg/dL (0.15-1.2) 08/20/24 08:45 AST 17 U/L (0-40) 08/20/24 08:45 ALT 9 U/L (0-41) 08/20/24 08:45 Alkaline Phosphatase 96 U/L (40-130) 08/20/24 08:45 Troponin T Baseline 85 ng/L (0-15) H 08/20/24 08:45 Troponin T 120 Minute 71.10 ng/L (0-15) H 08/20/24 10:33 Delta Troponin T -13.90 ABS# (0-10) L 08/20/24 10:33 NT-Pro-B Natriuret Pep 229 pg/mL (0-450) 08/20/24 08:45 Total Protein 6.3 g/dL (6.6-8.7) L 08/20/24 08:45 Albumin 3.9 g/dL (3.5-5.2) 08/20/24 08:45 Globulin 2.4 g/dL (1.3-4.6) 08/20/24 08:45 Urine Color Yellow (Yellow) 08/20/24 10:13 Urine Appearance Clear (CLEAR) 08/20/24 10:13 Urine pH 5.0 (5-7) 08/20/24 10:13 Ur Specific [place] 1.021 (1.005-1.030) 08/20/24 10:13 Urine Protein Trace (Negative) A 08/20/24 10:13 Urine Glucose (UA) Negative (Normal) 08/20/24 10:13 Urine Ketones Negative (Negative) 08/20/24 10:13 Urine Blood Negative (Negative) 08/20/24 10:13 Urine Nitrate Negative (Negative) 08/20/24 10:13 Urine Bilirubin Negative (Negative) 08/20/24 10:13 Urine Urobilinogen 0.2 mg/dL (Negative) 08/20/24 10:13 Ur Leukocyte Esterase Negative (Negative) 08/20/24 10:13 Urine RBC 0-2 /hpf (0-2) 08/20/24 10:13 Urine WBC 0-5 /hpf (0-5) 08/20/24 10:13 Ur Squamous Epith Cells 0-5 /hpf (0-5) 08/20/24 10:13 Amorphous Sediment Not Reportable 08/20/24 10:13 Urine Bacteria None seen /hpf (NONE) 08/20/24 10:13 Hyaline Casts 3.71 /lpf 08/20/24 10:13 All radiology interpretation(s) finalized by discharge Discharge Plan Discharge Patient Disposition: Home Clinical Impression: Dementia, Syncope Condition: Stable Prescriptions: No Action levetiracetam [Keppra] 500 mg Tablet 500 mg PO BID@07,19 donepezil 10 mg Tablet 10 mg PO BEDTIME@21 tramadol [Ultram] 50 mg Tablet 50 mg PO Q6H PRN (Reason: Pain) triamcinolone acetonide 0.1 % Cream See Rx Instructions .ROUTE .COMPLEX Rx Instructions: Apply to thickned areas of plaque topically twice daily every month starting on the for 14 days for rash areas on arms, legs and low back only. Not to be used more than 2 weeks a month. bisacodyl [Dulcolax (bisacodyl)] 10 mg Suppository 10 mg CA DAILY PRN (Reason: Constipation) pramipexole [Mirapex] 0.25 mg Tablet 0.25 mg PO BEDTIME@19 risperidone [Risperdal] 0.5 mg Tablet 0.5 mg PO TID@08,14,20 calcipotriene 0.005 % Ointment See Rx Instructions .ROUTE .COMPLEX Rx Instructions: APPLY A THIN FILM TO AFFECTED PLAQUES OF BODY. hydrocortisone 2.5 % Kit See Rx Instructions .ROUTE .COMPLEX Rx Instructions: APPLY TO NAVAL AREA BID EVERY MONTH STARTING ON THE FOR 14 DAYS FOR DRY CRUSTY AREAS ON SKIN-APPLY TOPICALLY TO NAVAL PLAQUE BID DAILY BUT NOT MORE THAN 2 WEEKS IN 1 MONTH metoprolol tartrate 25 mg tablet 12.5 mg PO BID@, clobetasol 0.05 % Cream 1 applic TOPICAL BID alprazolam [Xanax] 0.25 mg Tablet 0.25 mg PO BID PRN (Reason: Agitation) mupirocin 2 % Ointment 1 applic TOPICAL BID ketoconazole 2 % Cream 1 applic TOPICAL DAILY tacrolimus-vehicle base no.238 0.1 % Cream See Rx Instructions .ROUTE .COMPLEX Rx Instructions: Apply to plaques on right first finger topically twice daily every 2 weeks on Saturday, 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 emollient [Vanicream] Cream See Rx Instructions .ROUTE .COMPLEX Rx Instructions: Apply to entire body topically twice daily for dry skin. acetaminophen [Tylenol] 325 mg Tablet 650 mg PO Q4H PRN (Reason: Pain) magnesium hydroxide [Milk of Magnesia] 400 mg/5 mL Suspension 30 ml PO DAILY PRN (Reason: Constipation) amlodipine 10 mg Tablet 10 mg PO DAILY@07 Rx Instructions: hold for sbp of 100 or pulse of less than 60 aspirin 81 mg Tablet,Chewable 81 mg PO DAILY@07 Hold Instructions: Resume on 06/30/22. polyethylene glycol 3350 [Miralax] 17 gram/dose Powder 17 g PO DAILY@07 Discharge Orders: Discharge ED (Routine); Ordered 08/20/24 Ordered By: Elias Xiong Referrals: Allan Peñaloza DO [Primary Care Provider] - Discharge Diet: Usual diet Discharge Activity: Resume usual activity Patient Instructions: Altered Mental Status (ED), Opioid Safety, Pain Management Activity Restrictions/Additional Instructions: Thank you for choosing [facility] for your healthcare needs today. It is very important that you follow up as instructed or that you return to the Emergency Department should you have concerns or if your condition changes or worsens in any way. You were seen in the emergency room with report of unresponsive episode. Vital signs have been stable laboratory tests were normal with the exception of your chronic kidney disease. Your troponin while elevated trended down. CTA of the chest did not show any pneumonia exacerbation of heart failure or pulmonary embolism pneumothorax or dissecting aneurysm. Recommend you return to the skilled nursing continue routine cares. Coding Level of Care Code ED Inside Sales Executive for Vern Lopez
[2024-08-20 09:46] LABS: NT Pro B Type Natriuretic Pept 229 pg/mL (0-450)
[2024-08-20 10:12] VITALS: BP 115/68; PULSE 54; O2SAT 98
[2024-08-20 10:24] LABS: Bilirubin Urine Negative (Negative); Blood Urine Negative (Negative); Glucose Urine UA Negative (Normal); Ketones Urine Negative (Negative); Leukocyte Esterase Urine Negative (Negative); Nitrate Urine Negative (Negative); Protein Urine Trace (Negative); Specific Gravity, Urine 1.021 (1.005-1.030); Urine Appearance Clear (CLEAR); Urine Color Yellow (Yellow); Urobilinogen Urine 0.2 mg/dL (Negative)
[2024-08-20 10:28] LABS: Add Urine Microscopic? YES; Bacteria Urine None Seen /hpf; Hyaline Casts Urine 3.71 /lpf; RBC Urine 0-2 /hpf (0-2); Squamous Epithelial Cell Urine 0-5 /hpf (0-5); WBC Urine 0-5 /hpf (0-5)
[2024-08-20] MEDS: iohexol 350 mg/mL 500 mL Btl (per mL) IV (10:32)
--- NOTE | 2024-08-20 10:33 | ECG_ITS ---
[employer] Test Date: 2024-08-20 Pat Name: Kelton Tolbert Department: Room: Gender: Male Playground Aide: : 1940 Requested By: Elias Segovia Order Number: [id number] Ashley MD: Mike Couch M.D. 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 [email or web address]
[2024-08-20 11:00] LABS: Add Urine Culture? No; UA Slide Review UA Slide Review Perf
[2024-08-20 12:05] VITALS: BP 132/71; PULSE 54; O2SAT 100
[2024-08-20 14:24] VITALS: BP 129/67; PULSE 52; O2SAT 99
[2024-08-20 15:23] VITALS: BP 142/74; PULSE 51; O2SAT 99
== END 2024-08-20 15:31 | disposition home or self-care (01) ==
PROVIDERS: Emergency Provider Family Medicine; PCP Internal Medicine
DX: F03.90 Unspecified dementia, unspecified severity, without behavioral disturbance, psychotic disturbance, mood disturbance, and anxiety (principal); R55 Syncope and collapse; Z86.73 Personal history of transient ischemic attack (TIA), and cerebral infarction without residual deficits; I10 Essential (primary) hypertension
CPT/HCPCS: 36415; 70450; 71045; 71275; 80053; 81001; 83880; 84484; 85025; 93005; 99285

== ENCOUNTER 2024-09-03 13:40 | Emergency (ER) | payer MEDICARE, OTHER, SELFPAY ==
[2024-09-03 13:41] VITALS: BP 160/86; PULSE 68; RESP 14; TEMP 36.6; O2SAT 95
[2024-09-03 13:51] VITALS: BP 160/86; PULSE 68; RESP 14; TEMP 36.6; O2SAT 95
--- NOTE | 2024-09-03 13:51 | W.ED.PSYCHS ---
Documented by User: Bonifacio Paniagua DO 09/04/24 11:00 HPI - Psych General: Chief Complaint: Psychiatric Symptoms Stated Complaint: behavioral Time Seen by Provider: 09/03/24 13:47 History of Present Illness: 84-year-old male sent in from the [facility]. Patient is a dementia patient on a lockdown unit. He got angry at one of the nurses and threw some tea at her. They were concerned that he might get more angry so they sent him to the ER. Patient is not sure why he is in the ER and has no complaints. Patient has baseline mentation Related Data Home Medications Medication Instructions Recorded Confirmed acetaminophen 325 mg tablet 650 mg PO Q4H PRN Pain 06/12/22 09/03/24 (Tylenol) amlodipine 10 mg tablet 10 mg PO DAILY@06/12/22 09/03/24 magnesium hydroxide 400 mg/5 mL 30 ml PO DAILY PRN Constipation 06/12/22 09/03/24 oral suspension (Milk of Magnesia) polyethylene glycol 3350 17 17 g PO DAILY@06/12/22 09/03/24 gram/dose oral powder (Miralax) bisacodyl 10 mg rectal suppository 10 mg NH DAILY PRN Constipation 12/04/23 09/03/24 (Dulcolax (bisacodyl)) calcipotriene 0.005 % topical See Rx Instructions .Route .COMPLEX 12/04/23 09/03/24 ointment donepezil 10 mg tablet 10 mg PO BEDTIME@12/04/23 09/03/24 hydrocortisone 2.5 % topical kit See Rx Instructions .Route .COMPLEX 12/04/23 09/03/24 levetiracetam 500 mg tablet 500 mg PO BID@,12/04/23 09/03/24 (Keppra) metoprolol tartrate 25 mg tablet 12.5 mg PO BID@,12/04/23 09/03/24 pramipexole 0.25 mg tablet 0.25 mg PO BEDTIME@12/04/23 09/03/24 risperidone 0.5 mg tablet 0.5 mg PO TID@08,14,20 12/04/23 09/03/24 (Risperdal) tramadol 50 mg tablet 50 mg PO BID PRN Pain 12/04/23 09/03/24 triamcinolone acetonide 0.1 % See Rx Instructions .Route .COMPLEX 12/04/23 09/03/24 topical cream alprazolam 0.25 mg tablet (Xanax) 0.25 mg PO BID PRN Agitation 08/20/24 09/03/24 clobetasol 0.05 % topical cream 1 applic topical BID 08/20/24 09/03/24 emollient (Vanicream topical) See Rx Instructions .Route .COMPLEX 08/20/24 09/03/24 ketoconazole 2 % topical cream 1 applic topical DAILY to face 08/20/24 09/03/24 mupirocin 2 % topical ointment 1 applic topical BID 08/20/24 09/03/24 tacrolimus 0.1 % in vehicle base See Rx Instructions .Route .COMPLEX 08/20/24 09/03/24 no.238 topical cream aspirin 81 mg tablet,delayed 81 mg PO DAILY 09/03/24 09/03/24 release Allergies Allergy/AdvReac Type Severity Reaction Status Date / Time No Known Allergies Allergy Verified 07/21/21 05:58 Review of Systems Const: Denies: fever(s) or chills Card: Denies: chest pain Resp: Denies: dyspnea or productive cough Psych: Reports: other (Please see HPI) PFSH ED PFSH: Medical History DNR (do not resuscitate) Restless leg syndrome CVA (cerebral vascular accident) Anxiety Hypertension Dementia Social History Smoking and tobacco/nicotine status: never used tobacco/nicotine Alcohol intake: unknown Substance/Drug Use: unknown Household members: other Housing: Snf Physical Exam Const: COMMON NORMALS: no acute distress GENERAL APPEARANCE: comfortable Resp: COMMON NORMALS: normal respiratory effort EFFORT & INSPECTION: Yes able to speak in complete sentences Cardio: COMMON NORMALS: regular rate and regular rhythm RATE: regular rate RHYTHM: regular rhythm GI: COMMON NORMALS: Soft to palpation and non-tender PALPATION: Yes Soft to palpation Course Vital Signs: Vital signs: Vital Signs Temperature 97.9 F 09/03/24 13:51 Pulse Rate 79 09/03/24 23:01 Respiratory Rate 16 09/03/24 23:01 Blood Pressure 156/79 09/03/24 23:01 Pulse Oximetry 95 09/03/24 23:01 MDM - Psych Medical Decision Making Patient care facility feels he is unsafe to return due to his outbreaks and is requesting placement for [facility]. They requested that he be transferred to [place]. Patient himself continues to not have any complaints. Lab Data 09/03/24 16:17 09/03/24 16:17 Laboratory Results WBC 7.04 10^3/uL (3.29-11.43) 09/03/24 16:17 RBC 4.08 10^6/uL (3.85-5.65) 09/03/24 16:17 Hgb 12.10 g/dL (11.27-16.99) 09/03/24 16:17 Hct 37.2 % (37-53) 09/03/24 16:17 MCV 91.2 fl (82-101) 09/03/24 16:17 MCH 29.7 pg (27-33) 09/03/24 16:17 MCHC 32.5 g/dL (30-55) 09/03/24 16:17 RDW 12.1 % (12.1-15.1) 09/03/24 16:17 Plt Count 215 10^3/cmm (157-399) 09/03/24 16:17 MPV 9.7 fL (7.4-10.4) 09/03/24 16:17 Neut % (Auto) 67.1 % 09/03/24 16:17 Lymph % (Auto) 21.3 % 09/03/24 16:17 [place] % (Auto) 8.4 % 09/03/24 16:17 Eos % (Auto) 2.3 % 09/03/24 16:17 Baso % (Auto) 0.6 % 09/03/24 16:17 Neut # (Auto) 4.73 10^3/uL (1.8-7.7) 09/03/24 16:17 Lymph # (Auto) 1.5 10^3/uL (0.8-4.8) 09/03/24 16:17 [place] # (Auto) 0.6 10^3/uL (0.2-0.9) 09/03/24 16:17 Eos # (Auto) 0.2 10^3/uL (0.0-0.8) 09/03/24 16:17 Baso # (Auto) 0.0 10^3/uL (0.0-0.1) 09/03/24 16:17 Nucleated RBC % (auto) 0 % 09/03/24 16:17 Nucleated RBCs # 0.0 /100WBC 09/03/24 16:17 Sodium 138 mmol/L (136-145) 09/03/24 16:17 Potassium 4.1 mmol/L (3.5-5.1) 09/03/24 16:17 Chloride 103 mmol/L (98-107) 09/03/24 16:17 Carbon Dioxide 27 mmol/L (22-29) 09/03/24 16:17 Anion Gap 12.1 (5-19) 09/03/24 16:17 BUN 20 mg/dL (8-23) 09/03/24 16:17 Creatinine 1.2 mg/dL (0.7-1.2) 09/03/24 16:17 GFR Calculation Not Reportable 09/03/24 16:17 Glucose 130 mg/dL (65-115) H 09/03/24 16:17 Calculated Osmolality 290 mOsm/kg (285-295) 09/03/24 16:17 Calcium 9.5 mg/dL (8.5-10.5) 09/03/24 16:17 Total Bilirubin 0.2 mg/dL (0.15-1.2) 09/03/24 16:17 AST 14 U/L (0-40) 09/03/24 16:17 ALT 8 U/L (0-41) 09/03/24 16:17 Alkaline Phosphatase 92 U/L (40-130) 09/03/24 16:17 Total Protein 6.7 g/dL (6.6-8.7) 09/03/24 16:17 Albumin 3.8 g/dL (3.5-5.2) 09/03/24 16:17 Globulin 2.9 g/dL (1.3-4.6) 09/03/24 16:17 Urine Color Yellow (Yellow) 09/03/24 16:05 Urine Appearance Clear (CLEAR) 09/03/24 16:05 Urine pH 7.0 (5-7) 09/03/24 16:05 Ur Specific [place] 1.012 (1.005-1.030) 09/03/24 16:05 Urine Protein Negative (Negative) 09/03/24 16:05 Urine Glucose (UA) Negative (Normal) 09/03/24 16:05 Urine Ketones Negative (Negative) 09/03/24 16:05 Urine Blood Negative (Negative) 09/03/24 16:05 Urine Nitrate Negative (Negative) 09/03/24 16:05 Urine Bilirubin Negative (Negative) 09/03/24 16:05 Urine Urobilinogen 0.2 mg/dL (Negative) 09/03/24 16:05 Ur Leukocyte Esterase Negative (Negative) 09/03/24 16:05 Urine RBC 3-5 /hpf (0-2) 09/03/24 16:05 Urine WBC 0-5 /hpf (0-5) 09/03/24 16:05 Ur Squamous Epith Cells 0-5 /hpf (0-5) 09/03/24 16:05 Amorphous Sediment Not Reportable 09/03/24 16:05 Urine Bacteria None seen /hpf (NONE) 09/03/24 16:05 Hyaline Casts 0.40 /lpf 09/03/24 16:05 Salicylates 0.6 mg/dL (3-10) L 09/03/24 16:17 Acetaminophen < 5.0 ug/mL (10-30) L 09/03/24 16:17 No radiology studies performed this visit Discharge Plan Discharge Patient Disposition: Home Clinical Impression: Dementia, Behavior concern in adult Condition: Stable Prescriptions: No Action levetiracetam [Keppra] 500 mg Tablet 500 mg PO BID@07,19 donepezil 10 mg Tablet 10 mg PO BEDTIME@21 tramadol [Ultram] 50 mg Tablet 50 mg PO BID PRN (Reason: Pain) triamcinolone acetonide 0.1 % Cream See Rx Instructions .ROUTE .COMPLEX Rx Instructions: Apply to thickned areas of plaque topically twice daily every month starting on the for 14 days for rash areas on arms, legs and low back only. Not to be used more than 2 weeks a month. bisacodyl [Dulcolax (bisacodyl)] 10 mg Suppository 10 mg NH DAILY PRN (Reason: Constipation) pramipexole [Mirapex] 0.25 mg Tablet 0.25 mg PO BEDTIME@19 risperidone [Risperdal] 0.5 mg Tablet 0.5 mg PO TID@08,14,20 calcipotriene 0.005 % Ointment See Rx Instructions .ROUTE .COMPLEX Rx Instructions: APPLY A THIN FILM TO AFFECTED PLAQUES OF BODY. hydrocortisone 2.5 % Kit See Rx Instructions .ROUTE .COMPLEX Rx Instructions: APPLY TO NAVAL AREA BID EVERY MONTH STARTING ON THE FOR 14 DAYS FOR DRY CRUSTY AREAS ON SKIN-APPLY TOPICALLY TO NAVAL PLAQUE BID DAILY BUT NOT MORE THAN 2 WEEKS IN 1 MONTH metoprolol tartrate 25 mg tablet 12.5 mg PO BID@07, clobetasol 0.05 % Cream 1 applic TOPICAL BID alprazolam [Xanax] 0.25 mg Tablet 0.25 mg PO BID PRN (Reason: Agitation) mupirocin 2 % Ointment 1 applic TOPICAL BID ketoconazole 2 % Cream 1 applic TOPICAL DAILY tacrolimus-vehicle base no.238 0.1 % Cream See Rx Instructions .ROUTE .COMPLEX Rx Instructions: Apply to plaques on right first finger topically twice daily every 2 weeks on Saturday, 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 emollient [Vanicream] Cream See Rx Instructions .ROUTE .COMPLEX Rx Instructions: Apply to entire body topically twice daily for dry skin. acetaminophen [Tylenol] 325 mg Tablet 650 mg PO Q4H PRN (Reason: Pain) magnesium hydroxide [Milk of Magnesia] 400 mg/5 mL Suspension 30 ml PO DAILY PRN (Reason: Constipation) amlodipine 10 mg Tablet 10 mg PO DAILY@07 Rx Instructions: hold for sbp of 100 or pulse of less than 60 polyethylene glycol 3350 [Miralax] 17 gram/dose Powder 17 g PO DAILY@07 aspirin [Aspir-81] 81 mg Tablet,Delayed Release (Dr/Ec) 81 mg PO DAILY Discharge Orders: Discharge ED (Routine); Ordered 09/03/24 Ordered By: Maria T Carney Referrals: Allan Peñaloza DO [Primary Care Provider] - Discharge Diet: Usual diet Discharge Activity: Increase activity as tolerated Patient Instructions: Opioid Safety, Pain Management Activity Restrictions/Additional Instructions: Thank you for choosing [facility] for your healthcare needs today. Please realize this is an emergency room and that we are providing you with a medical screening exam and this may not be complete and all inclusive of all the testing and or work up that you may need to determine your ailment or severity of your illness. You have been screened and evaluated and felt safe for discharge. Health conditions do change or evolve sometimes and as such it is important that you follow up with your Primary Doctor to be re checked, 3-5 days is a general good time frame for follow up. 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 [employer] Documented by User: Maria T Carney MD 09/03/24 22:22 HPI - Psych General: Chief Complaint: Psychiatric Symptoms Stated Complaint: behavioral Time Seen by Provider: 09/03/24 13:47 Related Data Home Medications Medication Instructions Recorded Confirmed acetaminophen 325 mg tablet 650 mg PO Q4H PRN Pain 06/12/22 09/03/24 (Tylenol) amlodipine 10 mg tablet 10 mg PO DAILY@06/12/22 09/03/24 magnesium hydroxide 400 mg/5 mL 30 ml PO DAILY PRN Constipation 06/12/22 09/03/24 oral suspension (Milk of Magnesia) polyethylene glycol 3350 17 17 g PO DAILY@06/12/22 09/03/24 gram/dose oral powder (Miralax) bisacodyl 10 mg rectal suppository 10 mg NH DAILY PRN Constipation 12/04/23 09/03/24 (Dulcolax (bisacodyl)) calcipotriene 0.005 % topical See Rx Instructions .Route .COMPLEX 12/04/23 09/03/24 ointment donepezil 10 mg tablet 10 mg PO BEDTIME@12/04/23 09/03/24 hydrocortisone 2.5 % topical kit See Rx Instructions .Route .COMPLEX 12/04/23 09/03/24 levetiracetam 500 mg tablet 500 mg PO BID@07,19 12/04/23 09/03/24 (Keppra) metoprolol tartrate 25 mg tablet 12.5 mg PO BID@07,19 12/04/23 09/03/24 pramipexole 0.25 mg tablet 0.25 mg PO BEDTIME@19 12/04/23 09/03/24 risperidone 0.5 mg tablet 0.5 mg PO TID@08,14,20 12/04/23 09/03/24 (Risperdal) tramadol 50 mg tablet 50 mg PO BID PRN Pain 12/04/23 09/03/24 triamcinolone acetonide 0.1 % See Rx Instructions .Route .COMPLEX 12/04/23 09/03/24 topical cream alprazolam 0.25 mg tablet (Xanax) 0.25 mg PO BID PRN Agitation 08/20/24 09/03/24 clobetasol 0.05 % topical cream 1 applic topical BID 08/20/24 09/03/24 emollient (Vanicream topical) See Rx Instructions .Route .COMPLEX 08/20/24 09/03/24 ketoconazole 2 % topical cream 1 applic topical DAILY to face 08/20/24 09/03/24 mupirocin 2 % topical ointment 1 applic topical BID 08/20/24 09/03/24 tacrolimus 0.1 % in vehicle base See Rx Instructions .Route .COMPLEX 08/20/24 09/03/24 no.238 topical cream aspirin 81 mg tablet,delayed 81 mg PO DAILY 09/03/24 09/03/24 release Allergies Allergy/AdvReac Type Severity Reaction Status Date / Time No Known Allergies Allergy Verified 07/21/21 05:58 [facility] ED PFSH: Medical History DNR (do not resuscitate) Restless leg syndrome CVA (cerebral vascular accident) Anxiety Hypertension Dementia Social History Smoking and tobacco/nicotine status: never used tobacco/nicotine Alcohol intake: unknown Substance/Drug Use: unknown Household members: other Housing: Snf Course Vital Signs: Vital signs: Vital Signs Temperature 97.9 F 09/03/24 13:51 Pulse Rate 79 09/03/24 23:01 Respiratory Rate 16 09/03/24 23:01 Blood Pressure 156/79 09/03/24 23:01 Pulse Oximetry 95 09/03/24 23:01 MDM - Psych Medical Decision Making Patient care facility feels he is unsafe to return due to his outbreaks and is requesting placement for [facility]. They requested that he be transferred to [place]. Patient himself continues to not have any complaints. Patient care transitioned me at shift change. Patient was cleared medically and by psychiatry here to go back to the retirement. Ultimately the family demanded that he go back and not to a psychiatric unit and so he has been discharged back to the retirement. Lab Data 09/03/24 16:17 09/03/24 16:17 Laboratory Results WBC 7.04 10^3/uL (3.29-11.43) 09/03/24 16:17 RBC 4.08 10^6/uL (3.85-5.65) 09/03/24 16:17 Hgb 12.10 g/dL (11.27-16.99) 09/03/24 16:17 Hct 37.2 % (37-53) 09/03/24 16:17 MCV 91.2 fl (82-101) 09/03/24 16:17 MCH 29.7 pg (27-33) 09/03/24 16:17 MCHC 32.5 g/dL (30-55) 09/03/24 16:17 RDW 12.1 % (12.1-15.1) 09/03/24 16:17 Plt Count 215 10^3/cmm (157-399) 09/03/24 16:17 MPV 9.7 fL (7.4-10.4) 09/03/24 16:17 Neut % (Auto) 67.1 % 09/03/24 16:17 Lymph % (Auto) 21.3 % 09/03/24 16:17 [place] % (Auto) 8.4 % 09/03/24 16:17 Eos % (Auto) 2.3 % 09/03/24 16:17 Baso % (Auto) 0.6 % 09/03/24 16:17 Neut # (Auto) 4.73 10^3/uL (1.8-7.7) 09/03/24 16:17 Lymph # (Auto) 1.5 10^3/uL (0.8-4.8) 09/03/24 16:17 [place] # (Auto) 0.6 10^3/uL (0.2-0.9) 09/03/24 16:17 Eos # (Auto) 0.2 10^3/uL (0.0-0.8) 09/03/24 16:17 Baso # (Auto) 0.0 10^3/uL (0.0-0.1) 09/03/24 16:17 Nucleated RBC % (auto) 0 % 09/03/24 16:17 Nucleated RBCs # 0.0 /100WBC 09/03/24 16:17 Sodium 138 mmol/L (136-145) 09/03/24 16:17 Potassium 4.1 mmol/L (3.5-5.1) 09/03/24 16:17 Chloride 103 mmol/L (98-107) 09/03/24 16:17 Carbon Dioxide 27 mmol/L (22-29) 09/03/24 16:17 Anion Gap 12.1 (5-19) 09/03/24 16:17 BUN 20 mg/dL (8-23) 09/03/24 16:17 Creatinine 1.2 mg/dL (0.7-1.2) 09/03/24 16:17 GFR Calculation Not Reportable 09/03/24 16:17 Glucose 130 mg/dL (65-115) H 09/03/24 16:17 Calculated Osmolality 290 mOsm/kg (285-295) 09/03/24 16:17 Calcium 9.5 mg/dL (8.5-10.5) 09/03/24 16:17 Total Bilirubin 0.2 mg/dL (0.15-1.2) 09/03/24 16:17 AST 14 U/L (0-40) 09/03/24 16:17 ALT 8 U/L (0-41) 09/03/24 16:17 Alkaline Phosphatase 92 U/L (40-130) 09/03/24 16:17 Total Protein 6.7 g/dL (6.6-8.7) 09/03/24 16:17 Albumin 3.8 g/dL (3.5-5.2) 09/03/24 16:17 Globulin 2.9 g/dL (1.3-4.6) 09/03/24 16:17 Urine Color Yellow (Yellow) 09/03/24 16:05 Urine Appearance Clear (CLEAR) 09/03/24 16:05 Urine pH 7.0 (5-7) 09/03/24 16:05 Ur Specific [place] 1.012 (1.005-1.030) 09/03/24 16:05 Urine Protein Negative (Negative) 09/03/24 16:05 Urine Glucose (UA) Negative (Normal) 09/03/24 16:05 Urine Ketones Negative (Negative) 09/03/24 16:05 Urine Blood Negative (Negative) 09/03/24 16:05 Urine Nitrate Negative (Negative) 09/03/24 16:05 Urine Bilirubin Negative (Negative) 09/03/24 16:05 Urine Urobilinogen 0.2 mg/dL (Negative) 09/03/24 16:05 Ur Leukocyte Esterase Negative (Negative) 09/03/24 16:05 Urine RBC 3-5 /hpf (0-2) 09/03/24 16:05 Urine WBC 0-5 /hpf (0-5) 09/03/24 16:05 Ur Squamous Epith Cells 0-5 /hpf (0-5) 09/03/24 16:05 Amorphous Sediment Not Reportable 09/03/24 16:05 Urine Bacteria None seen /hpf (NONE) 09/03/24 16:05 Hyaline Casts 0.40 /lpf 09/03/24 16:05 Salicylates 0.6 mg/dL (3-10) L 09/03/24 16:17 Acetaminophen < 5.0 ug/mL (10-30) L 09/03/24 16:17 Discharge Plan Discharge Patient Disposition: Home Clinical Impression: Dementia, Behavior concern in adult Condition: Stable Prescriptions: No Action levetiracetam [Keppra] 500 mg Tablet 500 mg PO BID@07,19 donepezil 10 mg Tablet 10 mg PO BEDTIME@21 tramadol [Ultram] 50 mg Tablet 50 mg PO BID PRN (Reason: Pain) triamcinolone acetonide 0.1 % Cream See Rx Instructions .ROUTE .COMPLEX Rx Instructions: Apply to thickned areas of plaque topically twice daily every month starting on the for 14 days for rash areas on arms, legs and low back only. Not to be used more than 2 weeks a month. bisacodyl [Dulcolax (bisacodyl)] 10 mg Suppository 10 mg NH DAILY PRN (Reason: Constipation) pramipexole [Mirapex] 0.25 mg Tablet 0.25 mg PO BEDTIME@19 risperidone [Risperdal] 0.5 mg Tablet 0.5 mg PO TID@08,14,20 calcipotriene 0.005 % Ointment See Rx Instructions .ROUTE .COMPLEX Rx Instructions: APPLY A THIN FILM TO AFFECTED PLAQUES OF BODY. hydrocortisone 2.5 % Kit See Rx Instructions .ROUTE .COMPLEX Rx Instructions: APPLY TO NAVAL AREA BID EVERY MONTH STARTING ON THE FOR 14 DAYS FOR DRY CRUSTY AREAS ON SKIN-APPLY TOPICALLY TO NAVAL PLAQUE BID DAILY BUT NOT MORE THAN 2 WEEKS IN 1 MONTH metoprolol tartrate 25 mg tablet 12.5 mg PO BID@07,19 clobetasol 0.05 % Cream 1 applic TOPICAL BID alprazolam [Xanax] 0.25 mg Tablet 0.25 mg PO BID PRN (Reason: Agitation) mupirocin 2 % Ointment 1 applic TOPICAL BID ketoconazole 2 % Cream 1 applic TOPICAL DAILY tacrolimus-vehicle base no.238 0.1 % Cream See Rx Instructions .ROUTE .COMPLEX Rx Instructions: Apply to plaques on right first finger topically twice daily every 2 weeks on Saturday, 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 emollient [Vanicream] Cream See Rx Instructions .ROUTE .COMPLEX Rx Instructions: Apply to entire body topically twice daily for dry skin. acetaminophen [Tylenol] 325 mg Tablet 650 mg PO Q4H PRN (Reason: Pain) magnesium hydroxide [Milk of Magnesia] 400 mg/5 mL Suspension 30 ml PO DAILY PRN (Reason: Constipation) amlodipine 10 mg Tablet 10 mg PO DAILY@07 Rx Instructions: hold for sbp of 100 or pulse of less than 60 polyethylene glycol 3350 [Miralax] 17 gram/dose Powder 17 g PO DAILY@07 aspirin [Aspir-81] 81 mg Tablet,Delayed Release (Dr/Ec) 81 mg PO DAILY Discharge Orders: Discharge ED (Routine); Ordered 09/03/24 Ordered By: Maria T Carney Referrals: Allan Peñaloza DO [Primary Care Provider] - Discharge Diet: Usual diet Discharge Activity: Increase activity as tolerated Patient Instructions: Opioid Safety, Pain Management Activity Restrictions/Additional Instructions: Thank you for choosing [facility] for your healthcare needs today. Please realize this is an emergency room and that we are providing you with a medical screening exam and this may not be complete and all inclusive of all the testing and or work up that you may need to determine your ailment or severity of your illness. You have been screened and evaluated and felt safe for discharge. Health conditions do change or evolve sometimes and as such it is important that you follow up with your Primary Doctor to be re checked, 3-5 days is a general good time frame for follow up. 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
--- NOTE | 2024-09-03 14:04 | PC.PHAR ---
patient is from [facility]
--- NOTE | 2024-09-03 15:03 | ECG_ITS ---
SCREEMO Test Date: 2024-09-03 Pat Name: Kelton Tolbert Department: Room: Gender: Male [employer]er: : 1940 Requested By: Bonifacio Paniagua Order Number: [id number] Ramirez MD: Sung Walker M.D. Measurements Intervals [place] Rate: 62 P: 64 NV: 235 QRS: -28 QRSD: 120 T: 85 QT: 399 QTc: 407 Interpretive Statements SINUS RHYTHM WITH FIRST DEGREE AV BLOCK SEPTAL MYOCARDIAL INFARCTION , OF INDETERMINATE AGE [40+ ms Q WAVE IN V1/V2] Compared to ECG 08/20/2024 10:46:39 No significant changes Electronically Signed On 09-04-2024 09:00:06 STUDENT LIFE COORDINATOR by Sung Walker M.D. [email or web address]
--- NOTE | 2024-09-03 15:35 | W.PM.PSYCONS ---
Providers/Reason for Consult Consulting Physican/Specialty*: Calvin Freeman MD/Psychiatry Reason for Consult*: dementia/aggression Primary Care Provider: Allan Peñaloza, Psych Consult HPI History of Present Illness Kelton Tolbert is a 84 year old male residing in a [facility] correction on a dementia lockdown unit. The patient had apparently thrown tea at a nurse earlier today. Patient was briefly examined in the emergency department today by the consumer loan underwriter of this note. He was unable to recall why he was here. He had appeared pleasant and cooperative and had no complaints in the emergency department. He appeared to struggle with enuresis and had minimized this complaint as well. He stated that he was ready to return back to his previous place of residence. Records were reviewed by consumer loan underwriter including current medications. Meds Home Medications and Allergies Home Medications Medication Instructions Recorded Confirmed Last Taken Type acetaminophen 325 mg tablet 650 mg PO Q4H PRN Pain 06/12/22 09/03/24 Unknown History (Tylenol) amlodipine 10 mg tablet 10 mg PO DAILY@06/12/22 09/03/24 09/03/24 History magnesium hydroxide 400 mg/5 mL 30 ml PO DAILY PRN Constipation 06/12/22 09/03/24 Unknown History oral suspension (Milk of Magnesia) polyethylene glycol 3350 17 17 g PO DAILY@06/12/22 09/03/24 09/03/24 History gram/dose oral powder (Miralax) bisacodyl 10 mg rectal suppository 10 mg SD DAILY PRN Constipation 12/04/23 09/03/24 Unknown History (Dulcolax (bisacodyl)) calcipotriene 0.005 % topical See Rx Instructions .Route .COMPLEX 12/04/23 09/03/24 09/03/24 History ointment donepezil 10 mg tablet 10 mg PO BEDTIME@12/04/23 09/03/24 09/02/24 History hydrocortisone 2.5 % topical kit See Rx Instructions .Route .COMPLEX 12/04/23 09/03/24 08/18/24 History levetiracetam 500 mg tablet 500 mg PO BID@,12/04/23 09/03/24 09/03/24 History (Keppra) metoprolol tartrate 25 mg tablet 12.5 mg PO BID@,19 12/04/23 09/03/24 09/03/24 History pramipexole 0.25 mg tablet 0.25 mg PO BEDTIME@19 12/04/23 09/03/24 09/02/24 History risperidone 0.5 mg tablet 0.5 mg PO TID@08,14,20 12/04/23 09/03/24 09/03/24 History (Risperdal) tramadol 50 mg tablet 50 mg PO BID PRN Pain 12/04/23 09/03/24 09/03/24 History triamcinolone acetonide 0.1 % See Rx Instructions .Route .COMPLEX 12/04/23 09/03/24 08/18/24 History topical cream alprazolam 0.25 mg tablet (Xanax) 0.25 mg PO BID PRN Agitation 08/20/24 09/03/24 09/01/24 History clobetasol 0.05 % topical cream 1 applic topical BID 08/20/24 09/03/24 09/03/24 History emollient (Vanicream topical) See Rx Instructions .Route .COMPLEX 08/20/24 09/03/24 08/19/24 History ketoconazole 2 % topical cream 1 applic topical DAILY to face 08/20/24 09/03/24 09/03/24 History mupirocin 2 % topical ointment 1 applic topical BID 08/20/24 09/03/24 08/19/24 History tacrolimus 0.1 % in vehicle base See Rx Instructions .Route .COMPLEX 08/20/24 09/03/24 08/14/24 History no.238 topical cream aspirin 81 mg tablet,delayed 81 mg PO DAILY 09/03/24 09/03/24 09/03/24 History release Allergies Allergy/AdvReac Type Severity Reaction Status Date / Time No Known Allergies Allergy Verified 07/21/21 05:58 PFSH NPU PFSH: Medical History DNR (do not resuscitate) Restless leg syndrome CVA (cerebral vascular accident) Anxiety Hypertension Dementia Social History Smoking and tobacco/nicotine status: never used tobacco/nicotine Alcohol intake: unknown Substance/Drug Use: unknown Household members: other Housing: Snf Mental Status Exam MSE Comments: The patient appeared pleasant and cooperative on interview. He was able to recognize his own name and answer questions. He was not sure as to where he was nor was he oriented to place or time. He was unable to recognize that it was a hospital. His mood was described as all right. His affect appeared somewhat euthymic. His thought process was linear but superficial. His thought content showed no evidence of suicidal or homicidal ideation. There was no clear evidence of delusional thinking. He did not appear to be responding to internal stimuli. His recent memory was impaired. His remote memory appeared impaired as well. His insight is impaired. His judgment is poor. His impulse control appeared fair. Vitals/I&O/Wt Last Vital Signs Temp 97.9 F 09/03/24 13:51 Pulse 68 09/03/24 13:51 Resp 14 09/03/24 13:51 BP 160/86 09/03/24 13:51 Pulse Ox 95 09/03/24 13:51 09/03/24 09/03/24 09/03/24 06:59 14:59 22:59 Intake Total 0 / 0 Balance 0 / 0 A&P Assessment and plan (1) Dementia: Plan 1. Patient appears minimally agitated currently and may be a candidate to return back to current living facility. 2. In short, i would recommend discontinuation of xanax as it is not beneficial for prn use for agitation. It is more likely to cause paradoxical agitation in patient's with dementia. Attestations NPU Medical Necessity Statement*: Placement in geropsychiatric facility for a short stay may be beneficial to adjust medications if unable to immediately return to correction. Coding Level of Care Code Acute Code for [facility] Fwd Diagnoses Dementia F03.90
--- NOTE | 2024-09-03 15:49 | PC.NURSE ---
pt has been calm and cooperative since his arrival to the ED. no complaints or needs at this time.
[2024-09-03 16:24] LABS: Basophils % 0.6 %; Eosinophils # 0.2 10^3/uL (0.0-0.8); Eosinophils % 2.3 %; Hematocrit 37.2 % (37-53); Lymphocytes # 1.5 10^3/uL (0.8-4.8); Lymphocytes % 21.3 %; Mean Corpuscular HGB Conc 32.5 g/dL (30-55); Mean Corpuscular Hemoglobin 29.7 pg (27-33); Mean Corpuscular Volume 91.2 fl (82-101); Mean Platelet Volume 9.7 fL (7.4-10.4); Monocytes # 0.6 10^3/uL (0.2-0.9); Monocytes % 8.4 %; Neutrophils # 4.73 10^3/uL (1.8-7.7); Neutrophils % 67.1 %; Nucleated Red Blood Cells % 0 %; Platelet Count 215 10^3/cmm (157-399); Red Blood Count 4.08 10^6/uL (3.85-5.65); Red Cell Distribution Width 12.1 % (12.1-15.1); White Blood Count 7.04 10^3/uL (3.29-11.43)
[2024-09-03 16:37] LABS: Bilirubin Urine Negative (Negative); Blood Urine Negative (Negative); Glucose Urine UA Negative (Normal); Ketones Urine Negative (Negative); Leukocyte Esterase Urine Negative (Negative); Nitrate Urine Negative (Negative); Protein Urine Negative (Negative); Specific Gravity, Urine 1.012 (1.005-1.030); Urine Appearance Clear (CLEAR); Urine Color Yellow (Yellow); Urobilinogen Urine 0.2 mg/dL (Negative)
[2024-09-03 16:42] LABS: Add Urine Microscopic? YES; Bacteria Urine None Seen /hpf; Squamous Epithelial Cell Urine 0-5 /hpf (0-5); WBC Urine 0-5 /hpf (0-5)
[2024-09-03 16:44] LABS: Alanine Aminotransferase 8 U/L (0-41); Albumin Level 3.8 g/dL (3.5-5.2); Alkaline Phosphatase 92 U/L (40-130); Anion Gap 12.1 (5-19); Aspartate Amino Transferase 14 U/L (0-40); Blood Urea Nitrogen 20 mg/dL (8-23); Calcium 9.5 mg/dL (8.5-10.5); Carbon Dioxide 27 mmol/L (22-29); Chloride 103 mmol/L (98-107); Globulin 2.9 g/dL (1.3-4.6); Glucose 130 mg/dL (65-115); Osmolality Calculated 290 mOsm/kg (285-295); Potassium 4.1 mmol/L (3.5-5.1); Salicylate 0.6 mg/dL (3-10); Sodium 138 mmol/L (136-145); Total Bilirubin 0.2 mg/dL (0.15-1.2); Total Protein 6.7 g/dL (6.6-8.7)
[2024-09-03 16:49] LABS: Acetaminophen < 5.0 ug/mL (10-30)
--- NOTE | 2024-09-03 19:11 | PC.NURSE ---
spoke with pts son and he wanted to know why pt was sent here. informed him [facility] sent for a psych eval. son states 'he is a 84 year old man with dementia, what is a psych consult going to do to help him'. informed son that we didnt think pt was needing psych consult per provider, psychiatrist, and this RNs assessment. pt has been calm and cooperative my whole shift. currently awaiting for acceptance at [facility], son notified and verbalized understanding of current standings.
--- NOTE | 2024-09-03 20:35 | PC.NURSE ---
Just spoke with Deidra payton at [facility] regarding patients status and delays currently. She reported she was going to call her wide area network systems administrator to see what they can do next. Currently we are waiting for [facility] to call back on whether they will accept him or not.
--- NOTE | 2024-09-03 22:15 | PC.NURSE ---
Deidra, NURSE from [facility], called and reported that d/t the pt's sons insistence that pt return to NH and since pt was cleared by ER and Psych that pt could return to [facility]. Provider made aware and discharge/transportation to be arranged.
[2024-09-03 23:01] VITALS: BP 156/79; PULSE 79; RESP 16; O2SAT 95
== END 2024-09-03 23:00 | disposition home or self-care (01) ==
PROVIDERS: Student in an Organized Health Care Education/Training Program; Emergency Provider Emergency Medicine; PCP Internal Medicine
DX: F03.90 Unspecified dementia, unspecified severity, without behavioral disturbance, psychotic disturbance, mood disturbance, and anxiety (principal); F69 Unspecified disorder of adult personality and behavior; Z79.82 Long term (current) use of aspirin; Z86.73 Personal history of transient ischemic attack (TIA), and cerebral infarction without residual deficits; I10 Essential (primary) hypertension
CPT/HCPCS: 36415; 80053; 80307; 81001; 85025; 93005; 99284

== ENCOUNTER → 2024-11-05 13:19 | Outpatient (BNVA) | payer MEDICARE, OTHER, SELFPAY | PROVIDERS: PCP Internal Medicine; Visit Provider Dermatology | DX: L21.8 Other seborrheic dermatitis (principal); L40.0 Psoriasis vulgaris; L85.3 Xerosis cutis | CPT/HCPCS: 99214 ==

== ENCOUNTER 2024-12-07 09:22 | Emergency (ER) | payer MEDICARE, OTHER, SELFPAY ==
[2024-12-07 09:27] VITALS: BP 138/64; PULSE 51; RESP 18; TEMP 36.1; O2SAT 96; BMI 25.0
--- NOTE | 2024-12-07 09:28 | ECG_ITS ---
[employer] Test Date: 2024-12-07 Pat Name: Kelton Tolbert Department: Room: Gender: Male Dryland Farmer: : 1940 Requested By: Sulma Galindo Order Number: [id number] Ashley MD: COLLEEN FERNÁNDEZ Measurements Intervals [place] Rate: 52 P: 34 SD: 265 QRS: -15 QRSD: 109 T: 60 QT: 416 QTc: 390 Interpretive Statements SINUS BRADYCARDIA WITH FIRST DEGREE AV BLOCK NONSPECIFIC T-WAVE ABNORMALITY Compared to ECG 09/03/2024 15:26:19 T-wave abnormality now present Sinus rhythm no longer present Myocardial infarct finding no longer present Electronically Signed On 12-07-2024 21:00:51 CDT by COLLEEN FERNÁNDEZ [email or web address]
--- NOTE | 2024-12-07 09:38 | CT_ITS ---
WS: [id number] CT HEAD NONCONTRAST HISTORY: trauma TECHNIQUE: Contiguous axial imaging performed through the brain. Bone and soft tissue windows. Sagittal and coronal reformats reviewed. All CT scans at [facility] use at least one of these dose optimization techniques: automated exposure control; mA and/or kV adjustment per patient size (includes targeted exams where dose is matched to clinical indication); or iterative reconstruction. DLP: 1314.09 mGy.cm COMPARISON: 08/20/2024 No acute intracranial hemorrhage, midline shift or mass effect. Severe volume loss and atrophy in the cerebrum and cerebellum. Advanced small vessel disease. Ventricles: The ventricles and extra-axial spaces are prominent on the basis of atrophy. No inferior displacement of the cerebellar tonsils. Very dense calcification in the distal vertebral and intracranial carotid arteries. Paranasal sinuses: Small air-fluid level in the RIGHT maxillary sinus. Mastoid air cells: Well pneumatized. Calvarium and scalp: Skull is intact with no soft tissue edema or swelling. CT/CT head wo con* [id number] IMPRESSION: 1. No acute intracranial hemorrhage or edema. 2. Severe volume loss cerebrum and cerebellum and advanced small vessel diseas e. 3. Advanced atherosclerotic plaque in the distal vertebral and intracranial ca rotid arteries.
--- NOTE | 2024-12-07 09:38 | XRR_ITS ---
PROCEDURE INFORMATION: Exam: XR Chest Exam date and time: 12/07/2024 10:06 AM Age: 84 years old Clinical indication: Injury or trauma; Fall; Blunt trauma (contusions or hematomas); Additional info: Syncope? TECHNIQUE: Imaging protocol: Radiologic exam of the chest. Views: 1 view. COMPARISON: 1. CT angio chest PE protcl [id number] 08/20/2024 10:18 AM 2. CR (CHEST, ) 09/09/2022 10:33 AM FINDINGS: Lungs: There are persistent bibasilar interstitial opacities, [id number] which are unchanged since 09/09/2022. No consolidating infiltrates. Pleural spaces: Unremarkable. No pleural effusion. No pneumothorax. Heart/Mediastinum: Unremarkable. No cardiomegaly. Bones/joints: Unremarkable. XR/XR chest 1V portable [id number] IMPRESSION: 1. No acute abnormality 2. Stable bibasilar interstitial opacities, suspicious for fibrosis/scarring.
--- NOTE | 2024-12-07 09:38 | CT_ITS ---
WS: [id number] CT CERVICAL SPINE HISTORY: trauma TECHNIQUE: Contiguous 2.0 mm axial imaging performed through the entire cervical spine. Sagittal and coronal reformats also performed. All CT scans at [facility] use at least one of these dose optimization techniques: automated exposure control; mA and/or kV adjustment per patient size (includes targeted exams where dose is matched to clinical indication); or iterative reconstruction. DLP: 1314.09 mGy.cm COMPARISON: None available. Mild curvature and scoliosis. Advanced degenerative disc disease at C4-5, C5-6 and C6-7. Vertebral body osteophytes. Cortical irregularity involving the posterior superior C6 vertebral body appears to be an osteophyte. Facet joints are normally aligned. Lateral masses of C1 and C2 are normal. Craniocervical junction is intact. Bilateral facet joint arthropathy. No posterior element fracture. Mild diffuse central and foraminal stenosis. No large disc protrusions. CT/CT cervical spin wo con* [id number] IMPRESSION: 1. No acute cervical spine fracture. 2. Advanced degenerative disc disease from C4-5 through C6-7 with osteophytes. 3. No facet joint subluxation.
--- NOTE | 2024-12-07 09:39 | ED_ITS ---
HPI - Syncope 2 General: Chief Complaint: Syncope Stated Complaint: syncopal ep - fall Time Seen by Provider: 12/07/24 09:28 Source: EMS Mode of arrival: EMS Limitations: altered mental status (chronic dementia; normal following these episodes ) History of Present Illness: Patient is an 84-year-old male here via EMS from his residence at [facility] here following a head injury. He reportedly had an unwitnessed fall in his room. Nursing staff at [facility] states that patient has these episodes that could be seizures versus syncopal episodes. Regardless they are chronic and have been present for years . He reportedly is on Keppra. long term states he has no formal diagnosis of epilepsy and does not see neurology. They state after an episode patient is fairly lethargic throughout the rest of the day and usually remains in his room. They suspect today that he had an episode and fell and struck his head. Unknown LOC. Upon arrival he can tell me his name and date of . He knows that he is in a hospital. States he lives in [place]. Son is DPOA and reportedly on his way. MD complaint: other (seizure vs syncopal episode) Onset (ago): hour(s) Prodromal symptoms: other (unknown/unwitnessed) Witnessed: No Injuries sustained associated with event: head Associated symptoms: Deny fever(s) or headache(s) History: previous syncopal episode Treatments prior to arrival: none Related Data Home Medications ?Medication ?Instructions ?Recorded ?Confirmed acetaminophen 325 mg tablet 650 mg PO Q4H PRN Pain 09/0212/07/24 (Tylenol) amlodipine 10 mg tablet 10 mg PO DAILY@07 06/12/22 0 12/07/24 magnesium hydroxide 400 mg/5 mL 30 ml PO DAILY PRN Con stipation 06/12/22 12/07/24 oral suspension (Milk of Magnesia) bisacodyl 10 mg rectal suppository 10 mg IA DAILY PRN Constipation 12/04/23 12/07/24 (Dulcolax (bisacodyl)) calcipotriene 0.005 % topical See Rx Instructions .Rou te .COMPLEX 12/04/23 12/07/24 ointment donepezil 10 mg tablet 10 mg PO BEDTIME@21 12/04/23 12/07/24 hydrocortisone 2.5 % topical kit See Rx Instructions . Route .COMPLEX 12/04/23 12/07/24 levetiracetam 500 mg tablet 500 mg PO BID@07,19 12/07/24 (Keppra) metoprolol tartrate 25 mg tablet 12.5 mg PO BID@07,19 12/04/23 12/07/24 pramipexole 0.25 mg tablet 0.25 mg PO BEDTIME@19 12/0312/07/24 risperidone 0.5 mg tablet 0.5 mg PO DAILY 12/04/23 (Risperdal) tramadol 50 mg tablet See Rx Instructions .Route 0 12/04/23 12/07/24 .COMPLEX PRN Pain triamcinolone acetonide 0.1 % See Rx Instructions .Rou te .COMPLEX 12/04/23 12/07/24 topical cream alprazolam 0.25 mg tablet (Xanax) 0.25 mg PO BID PRN A gitation 08/20/24 12/07/24 emollient (Vanicream topical) 1 applic topical BID dry skin 08/20/24 12/07/24 ketoconazole 2 % topical cream 1 applic topical DAILY to face 08/20/24 12/07/24 mupirocin 2 % topical ointment 1 applic topical BID 12/07/24 tacrolimus 0.1 % in vehicle base See Rx Instructions . Route .COMPLEX 08/20/24 12/07/24 no.238 topical cream aspirin 81 mg tablet,delayed 81 mg PO DAILY 09/03/24 0 12/07/24 release polyethylene glycol 3350 17 gram 17 g PO QAM 12/07/24 12/07/24 oral powder packet (Miralax) risperidone 1 mg tablet (Risperdal) 1 mg PO BID 12/07/24 tramadol 50 mg tablet 50 mg PO BID moderate to sev ere 12/07/24 12/07/24 pain Allergies Allergy/AdvReac Type Severity Reaction Status Date / Time No Known Allergies Allergy Verified 07/21/21 05:58 Review of Systems 2 Const: Denies: fever(s) Eyes: Denies: change in vision Resp: Denies: productive cough or non-productive cough GI: Denies: vomiting or diarrhea Musc: Denies: neck pain, back pain, extremity pain or joint pain Neuro: Denies: headache(s) PFSH ED 2 PFSH: Medical History DNR (do not resuscitate) Restless leg syndrome CVA (cerebral vascular accident) Anxiety Hypertension Dementia Social History Smoking and tobacco/nicotine status: never used tobacco/nicotine Alcohol intake: unknown Substance/Drug Use: unknown Household members: other Housing: Assisted Physical Exam 2 Const: COMMON NORMALS: no acute distress, average body habitus, healthy appearing, alert and well nourished GENERAL APPEARANCE: cooperative O RIENTATION/CONSCIOUSNESS: Yes oriented to person and Yes oriented to place HENMT: COMMON NORMALS: normocephalic and Normal external nose present HEAD & SCALP: normocephalic and other (abrasions to forehead) FACE & SINUS: normal facial exam NOSE: Normal external nose present Eye: COMMON NORMALS: Equal, round and reactive pupils present and EOMs intact bilaterally GENERAL EYE: appearance normal, both eyes and all related structures PUPIL: Yes Equal, round and reactive pupils present Neck/C-Spine: COMMON NORMALS: full ROM CERVICAL SPINE: No Cervical spine tenderness Chest: COMMONS NORMALS: normal inspection of the chest and normal palpation of entire chest wall Resp: COMMON NORMALS: normal respiratory effort and clear to auscultation bilaterally AUSCULTATION: clear to auscultation bilaterally Cardio: COMMON NORMALS: regular rate and regular rhythm RATE: regular rate RHYTHM: regular rhythm GI: COMMON NORMALS: Normal to inspection, nondistended, normoactive bowel sounds present, Soft to palpation, non-tender and no masses PALPATION: Yes Soft to palpation Back/Pelvis: COMMON NORMALS: thoracic and lumbar spine normal to inspection Extremity: COMMON NORMALS: normal to inspection and full ROM GENERAL: Yes normal exam except as noted Neuro: SENSORIUM/ORIENTATION: Yes alert, Yes oriented to person and Yes oriented to place GAIT: Yes Unable to assess gait Skin: NARRATIVE SKIN EXAM: forehead abrasions-otherwise no signs of trauma Course 2 Vital Signs: Vital signs: Vital Signs Temperature 96.9 F L 12/07/24 09:27 Pulse Rate 53 L 12/07/24 09:50 Respiratory Rate 18 12/07/24 09:27 Blood Pressure 124/63 12/07/24 09:50 Pulse Oximetry 97 12/07/24 09:50 Oxygen Delivery Me thod Room Air 12/07/24 09:50 MDM - Syncope Medical Decision Making Patient is an 84-year-old male here from his [facility] for evaluation of a head injury following an episode . Reportedly he has been having seizure versus syncopal episodes for years. He does take Keppra. long term and family's main concern was the head injury. CT scan of his head and cervical spine are unremarkable. Labs and UA overall nonactionable. He will be discharged back to [facility]. Son is currently accompanying patient and is comfortable with this plan. Medical Records I reviewed the patient's medical records. Lab Data I reviewed the patient's lab results. 12/07/24 09:56 12/07/24 09:56 Radiology Impressions Cervical Spine CT 12/07/24 09:38 IMPRESSION: 1. No acute cervical spine fracture. 2. Advanced degenerative disc disease from C4-5 through C6-7 with osteophytes. 3. No facet joint subluxation. Chest X-Ray 12/07/24 09:38 IMPRESSION: 1. No acute abnormality 2. Stable bibasilar interstitial opacities, suspicious for fibrosis/scarring. Head CT 12/07/24 09:38 IMPRESSION: 1. No acute intracranial hemorrhage or edema. 2. Severe volume loss cerebrum and cerebellum and advanced small vessel disease. 3. Advanced atherosclerotic plaque in the distal vertebral and intracranial carotid arteries. Laboratory Results WBC 8.81 10^3/uL (3.29-11.43) 12/07/24 09:56 RBC 4.45 10^6/uL (3.85-5.65) 12/07/24 09:56 Hgb 13.10 g/dL (11.27-16.99) 12/07/24 09:56 Hct 40.8 % (37-53) 12/07/24 09:56 MCV 91.7 fl (82-101) 12/07/24 09:56 MCH 29.4 pg (27-33) 12/07/24 09:56 MCHC 32.1 g/dL (30-55) 12/07/24 09:56 RDW 12.5 % (12.1-15.1) 12/07/24 09:56 Plt Count 216 10^3/cmm (157-399) 12/07/24 09:56 MPV 10.4 fL (7.4-10.4) 12/07/24 09:56 Neut % (Auto) 79.2 % 12/07/24 09:56 Lymph % (Auto) 11.8 % 12/07/24 09:56 [place] % (Auto) 6.5 % 12/07/24 09:56 Eos % (Auto) 1.7 % 12/07/24 09:56 Baso % (Auto) 0.3 % 12/07/24 09:56 Neut # (Auto) 6.98 10^3/uL (1.8-7.7) 12/07/24 09:56 Lymph # (Auto) 1.0 10^3/uL (0.8-4.8) 12/07/24 09:56 [place] # (Auto) 0.6 10^3/uL (0.2-0.9) 12/07/24 09:56 Eos # (Auto) 0.2 10^3/uL (0.0-0.8) 12/07/24 09:56 Baso # (Auto) 0.0 10^3/uL (0.0-0.1) 12/07/24 09:56 Nucleated RBC % (auto) 0 % 12/07/24 09:56 Nucleated RBCs # 0.0 /100WBC 12/07/24 09:56 Sodium 136 mmol/L (136-145) 12/07/24 09:56 Potassium 3.9 mmol/L (3.5-5.1) 12/07/24 09:56 Chloride 101 mmol/L (98-107) 12/07/24 09:56 Carbon Dioxide 24 mmol/L (22-29) 12/07/24 09:56 Anion Gap 14.9 (5-19) 12/07/24 09:56 BUN 20 mg/dL (8-23) 12/07/24 09:56 Creatinine 1.4 mg/dL (0.7-1.2) H 12/07/24 09:56 GFR Calculation Not Reportable 12/07/24 09:56 Glucose 131 mg/dL (65-115) H 12/07/24 09:56 Calculated Osmolality 286 mOsm/kg (285-295) 12/07/24 09:56 Calcium 10.2 mg/dL (8.5-10.5) 12/07/24 09:56 Total Bilirubin 0.3 mg/dL (0.15-1.2) 12/07/24 09:56 AST 14 U/L (0-40) 12/07/24 09:56 ALT 8 U/L (0-41) 12/07/24 09:56 Alkaline Phosphatase 99 U/L (40-130) 12/07/24 09:56 Total Protein 7.3 g/dL (6.6-8.7) 12/07/24 09:56 Albumin 3.9 g/dL (3.5-5.2) 12/07/24 09:56 Globulin 3.4 g/dL (1.3-4.6) 12/07/24 09:56 Urine Color Yellow (Yellow) 12/07/24 11:12 Urine Appearance Clear (CLEAR) 12/07/24 11:12 Urine pH 7.0 (5-7) 12/07/24 11:12 Ur Specific [place] 1.011 (1.005-1.030) 12/07/24 11:12 Urine Protein Negative (Negative) 12/07/24 11:12 Urine Glucose (UA) Negative (Normal) 12/07/24 11:12 Urine Ketones Negative (Negative) 12/07/24 11:12 Urine Blood Negative (Negative) 12/07/24 11:12 Urine Nitrate Negative (Negative) 12/07/24 11:12 Urine Bilirubin Negative (Negative) 12/07/24 11:12 Urine Urobilinogen 0.2 mg/dL (Negative) 12/07/24 11:12 Ur Leukocyte Esterase Negative (Negative) 12/07/24 11:12 Urine RBC 0-2 /hpf (0-2) 12/07/24 11:12 Urine WBC 0-5 /hpf (0-5) 12/07/24 11:12 Ur Squamous Epith Cells 0-5 /hpf (0-5) 12/07/24 11:12 Amorphous Sediment Not Reportable 12/07/24 11:12 Urine Bacteria None seen /hpf (NONE) 12/07/24 11:12 Hyaline Casts 0.40 /lpf 12/07/24 11:12 All radiology interpretation(s) finalized by discharge Discharge Plan Discharge Patient Disposition: Home Clinical Impression: Forehead contusion Qualifiers: Encounter type: initial encounter Qualified Code(s): S00.83XA - Contusion of other part of head, initial encounter Condition: Stable Prescriptions: No Action levetiracetam [Keppra] 500 mg Tablet 500 mg PO BID@, donepezil 10 mg Tablet 10 mg PO BEDTIME@21 tramadol [Ultram] 50 mg Tablet See Rx Instructions .ROUTE .COMPLEX PRN (Reason: Pain) Rx Instructions: Give 1 tablet by mouth every 24 hours as needed for moderate to severe pain. Must have 6 hours in between scheduled dose. triamcinolone acetonide 0.1 % Cream See Rx Instructions .ROUTE .COMPLEX Rx Instructions: Apply to thickned areas of plaque topically twice daily every month starting on the for 14 days for rash areas on arms, legs and low back only. Not to be used more than 2 weeks a month. bisacodyl [Dulcolax (bisacodyl)] 10 mg Suppository 10 mg IA DAILY PRN (Reason: Constipation) pramipexole [Mirapex] 0.25 mg Tablet 0.25 mg PO BEDTIME@19 risperidone [Risperdal] 0.5 mg Tablet 0.5 mg PO DAILY calcipotriene 0.005 % Ointment See Rx Instructions .ROUTE .COMPLEX Rx Instructions: APPLY A THIN FILM TO AFFECTED PLAQUES OF BODY. hydrocortisone 2.5 % Kit See Rx Instructions .ROUTE .COMPLEX Rx Instructions: APPLY TO NAVAL AREA BID EVERY MONTH STARTING ON THE FOR 14 DAYS FOR DRY CRUSTY AREAS ON SKIN-APPLY TOPICALLY TO NAVAL PLAQUE BID DAILY BUT NOT MORE THAN 2 WEEKS IN 1 MONTH metoprolol tartrate 25 mg tablet 12.5 mg PO BID@ alprazolam [Xanax] 0.25 mg Tablet 0.25 mg PO BID PRN (Reason: Agitation) mupirocin 2 % Ointment 1 applic TOPICAL BID ketoconazole 2 % Cream 1 applic TOPICAL DAILY tacrolimus-vehicle base no.238 0.1 % Cream See Rx Instructions .ROUTE .COMPLEX Rx Instructions: Apply to plaques on right first finger topically twice daily every 2 weeks on Saturday, 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 emollient [Vanicream] Cream 1 applic topical BID Rx Instructions: Apply to entire body topically twice daily for dry skin. polyethylene glycol 3350 [Miralax] 17 gram Powder In Packet 17 g PO QAM risperidone [Risperdal] 1 mg Tablet 1 mg PO BID tramadol 50 mg Tablet 50 mg PO BID acetaminophen [Tylenol] 325 mg Tablet 650 mg PO Q4H PRN (Reason: Pain) magnesium hydroxide [Milk of Magnesia] 400 mg/5 mL Suspension 30 ml PO DAILY PRN (Reason: Constipation) amlodipine 10 mg Tablet 10 mg PO DAILY@07 Rx Instructions: hold for sbp of 100 or pulse of less than 60 aspirin [Aspir-81] 81 mg Tablet,Delayed Release (Dr/Ec) 81 mg PO DAILY Discharge Orders: Discharge ED (Routine); Ordered 12/07/24 Ordered By: Sulma Galindo Referrals: Allan Peñaloza DO [Primary Care Provider] - Activity Restrictions/Additional Instructions: As we discussed, patient's CT scan of his head/cervical spine was unremarkable. Blood work overall is nonactionable. His UA was clear/without infection. Patient will be discharged back to his fpc at [facility]. Print Language: Romansh Coding Level of Care Code ED [employer] for [facility]
[2024-12-07 09:50] VITALS: BP 124/63; PULSE 53; O2SAT 97
[2024-12-07 10:03] LABS: Basophils % 0.3 %; Eosinophils # 0.2 10^3/uL (0.0-0.8); Eosinophils % 1.7 %; Hematocrit 40.8 % (37-53); Lymphocytes % 11.8 %; Mean Corpuscular HGB Conc 32.1 g/dL (30-55); Mean Corpuscular Hemoglobin 29.4 pg (27-33); Mean Corpuscular Volume 91.7 fl (82-101); Mean Platelet Volume 10.4 fL (7.4-10.4); Monocytes # 0.6 10^3/uL (0.2-0.9); Monocytes % 6.5 %; Neutrophils # 6.98 10^3/uL (1.8-7.7); Neutrophils % 79.2 %; Nucleated Red Blood Cells % 0 %; Platelet Count 216 10^3/cmm (157-399); Red Blood Count 4.45 10^6/uL (3.85-5.65); Red Cell Distribution Width 12.5 % (12.1-15.1); White Blood Count 8.81 10^3/uL (3.29-11.43)
[2024-12-07 10:34] LABS: Alanine Aminotransferase 8 U/L (0-41); Albumin Level 3.9 g/dL (3.5-5.2); Alkaline Phosphatase 99 U/L (40-130); Anion Gap 14.9 (5-19); Aspartate Amino Transferase 14 U/L (0-40); Blood Urea Nitrogen 20 mg/dL (8-23); Calcium 10.2 mg/dL (8.5-10.5); Carbon Dioxide 24 mmol/L (22-29); Chloride 101 mmol/L (98-107); Creatinine Clr Calc Pharmacy 36.7982; Globulin 3.4 g/dL (1.3-4.6); Glucose 131 mg/dL (65-115); Osmolality Calculated 286 mOsm/kg (285-295); Potassium 3.9 mmol/L (3.5-5.1); Sodium 136 mmol/L (136-145); Total Bilirubin 0.3 mg/dL (0.15-1.2); Total Protein 7.3 g/dL (6.6-8.7)
[2024-12-07 11:32] LABS: Bilirubin Urine Negative (Negative); Blood Urine Negative (Negative); Glucose Urine UA Negative (Normal); Ketones Urine Negative (Negative); Leukocyte Esterase Urine Negative (Negative); Nitrate Urine Negative (Negative); Protein Urine Negative (Negative); Specific Gravity, Urine 1.011 (1.005-1.030); Urine Appearance Clear (CLEAR); Urine Color Yellow (Yellow); Urobilinogen Urine 0.2 mg/dL (Negative)
[2024-12-07 11:37] LABS: Add Urine Microscopic? YES; Bacteria Urine None Seen /hpf; RBC Urine 0-2 /hpf (0-2); Squamous Epithelial Cell Urine 0-5 /hpf (0-5); WBC Urine 0-5 /hpf (0-5)
[2024-12-07 12:01] LABS: Add Urine Culture? No
[2024-12-07 12:14] VITALS: BP 115/67; PULSE 48; O2SAT 93
[2024-12-07 13:07] VITALS: BP 132/57; PULSE 48; O2SAT 96
== END 2024-12-07 13:09 | disposition home or self-care (01) ==
PROVIDERS: Emergency Provider Physician Assistant; PCP Internal Medicine
DX: S00.83XA Contusion of other part of head, initial encounter (principal); Z79.82 Long term (current) use of aspirin; I10 Essential (primary) hypertension; Z86.73 Personal history of transient ischemic attack (TIA), and cerebral infarction without residual deficits; W19.XXXA Unspecified fall, initial encounter
CPT/HCPCS: 36415; 70450; 71045; 72125; 80053; 81001; 85025; 93005; 99284

== ENCOUNTER 2025-04-17 13:27 | Inpatient (IN) | payer MEDICARE, OTHER, SELFPAY ==
--- OUTSIDE RECORDS SUMMARY | 2011-07-17 04:34 | XMS_ITS | Continuity of Care Document ---
Author Organization [facility] Address [address] [id number] [address] Phone Care Team Providers Care Tax Analyst Name Role Phone Ricky Christiansen MD Unavailable Unavailable Medications Medication Instructions Dosage Effective Dates (start - stop) Status Comments simvastatin 40 mg Tab take 1 tablet (40MG) by ORAL route every day in the evening 40 MG - Active simvastatin 40 mg Tab SI tab(s) orally once a day (at bedtime) for 30 day(s) - Active simvastatin 40 mg Tab SI tab(s) orally once a day (at bedtime) for 30 day(s) - Active CIPROFLOXACIN (unknown strength) SI TAB orally every 12 hours for 10 day(s) Not Available - Active Claritin 10 mg Tab SI TAB orally once a day PRN(as needed for allergy symptoms) - Active Sudafed PE 10 mg Tab SI TAB orally every 4 to 6 hours PRN(as needed for cough and congestion) - Active Crestor 10 mg Tab SI mg orally once a day - Active ZITHROMAX TRI-PENG (unknown strength) SI TAB orally once a day for 5 day(s) Not Available - Active Procedures Procedure Date EST-EXP PROB FOC/LOW COMPLEXITY 009 PSA, TOTAL dx V76.44 screening PSA $25 ( [id number]) EST-EXP PROB FOC/LOW COMPLEXITY 009 COMPLETE CBC W/AUTO DIFF WBC PSA, TOTAL LIPID PANEL QUEST ECG RECORDING COMPREHEN METABOLIC PANEL URINALYSIS NONAUTO W/O SCOPE EST-EXP PROB FOC/LOW COMPLEXITY 007 EST-EXP PROB FOC/LOW COMPLEXITY 007 EST-PROB FOC/STR FORWARD COMPREHEN METABOLIC PANEL PSA, TOTAL URINALYSIS NONAUTO W/O SCOPE LIPID PANEL COMPLETE CBC W/AUTO DIFF WBC LIPID PANEL QUEST TRANSFERASE (AST) (SGOT) EST-PROB FOC/STR FORWARD EST-PROB FOC/STR FORWARD LIPID PANEL NEW-EXP PROB FOC/STR FORWARD Advance Directives Directive Yes / No Effective Date File Name No Information Encounters Encounter Description Practice Location Reason(s) For Visit Diagnoses Date Provider Providers Copied on Encounter [facility], [id number] [place], [address], [place] tel:[phone] Family Medicine F1 No Information 6 1 Kuldip García. [address], [place], [address], [place]. tel:[phone] [facility], [id number] [place], [address], [place] tel:[phone] Family Medicine F1 No Information 8 0 No Information [facility], [id number] [place], [address], [place] tel:[phone] Family Medicine F1 No Information 8 9 No Information EST-EXP PROB FOC/LOW COMPLEXITY [facility], [id number] [address]42[address], [address], [place] tel:[phone] Family Medicine F1 No Information 9-200 9 No Information [facility], [id number] [address] [place], [place], [address], [place] tel:[phone] Family Medicine F1 No Information 6 9 No Information EST-EXP PROB FOC/LOW COMPLEXITY [facility], [id number] [address] [place], [place], [address], [place] tel:[phone] Family Medicine F1 No Information 9 No Information EST-EXP PROB FOC/LOW COMPLEXITY [facility], [id number] [address]556[address], [address], [place] tel:[phone] Family Medicine F1 No Information 0200 7 No Information [facility], [id number] [address]56[address], [address], [place] tel:[phone] Family Medicine F1 No Information 7 No Information EST-EXP PROB FOC/LOW COMPLEXITY [facility], [id number] [address], [address], [place] tel:[phone] Family Medicine F1 No Information 7 No Information EST-PROB FOC/STR FORWARD [facility], [id number] [place], [address], [place] tel:[phone] Family Medicine F1 No Information 7 No Information EST-PROB FOC/STR FORWARD [facility], [id number] 18220[address], [address], [place] tel:[phone] Family Medicine F1 No Information 0200 6 No Information EST-PROB FOC/STR FORWARD [facility], [id number] [address] [place], [address], [place] tel:[phone] Family Medicine F1 No Information 6 No Information NEW-EXP PROB FOC/STR FORWARD [facility], [id number] [address]094[address]XL-Td [facility], [place], [place], [address], [place] tel:[phone] Family Medicine F1 No Information 5 No Information Family History Family Member Type Diagnosis Age At Onset No Information Immunizations Vaccine Date Status Comments flu (split) (3 yrs or older) administered Source: New Immunization Record Payers Payer name Insurance type Covered democrat ID Authoriza tion(s) No Information Social History Type Description Quantity Date Captured Comments Sex Male Smoking Status No Information Chief Complaint And Reason For Visit No Information Reason For Referral Reason For Referral No Information History Of Present Illness Encounter Date Complaint History Of Prese nt Illness No Information Functional Status Date Functional Assessmen t No Information Instructions Date Instruction Additional Infor mation No Information Assessments Type Assessment Date No Information Patient Care Teams Name Effective Dates (start - stop) Status Members No Information
[2025-04-17] VITALS (19 sets, daily range): BP systolic 120–166; BP diastolic 69–95; PULSE 60–103; RESP 14–20; TEMP 36.7–36.8; O2SAT 95–100; BMI 28.1; BMI 26.8
--- OUTSIDE RECORDS SUMMARY | 2025-04-17 13:30 | XMS_ITS ---
Author Organization [facility] Care Team Providers Care Beekeeper Name Role Phone Jane Garcia Unavailable Unavailable González Heller Unavailable Unavailable Hema Rivera Unavailable Unavailable Allergies and adverse reactions Code CodeSystem Substance Reaction Severity StartDate Concern Status 6470 RXNORM Ativan Unknown 07/17/2024 active Care Team Name Role Address Phone Organization Dates González Heller PCP [address] [place], [address], [place] (Office[place] [facility] 06/15/2022 - present Jane Garcia [address] , [place], [address], [place]Office[place] : [facility] 06/15/2022 - present Hema Rivera [address] [place] [address] [address], [place], [address], [place]Office): [facility] 06/15/2022 - present Goals Section Goals Description Status Target Date All goals will be reviewed a nd updated as needed with completion of the assessment process of the PANIAGUA unless otherwise stated in the individualized goal Active 06/03/2025 Milly will have fewer episo ber[place] of physically aggressive behavior by review date. Active 06/03/2025 Milly will not harm self or others through the review date. 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 Active 06/03/2025 Kelton will have intact skin , free of redness, blisters or discoloration by/through review date. Active 06/03/2025 Resident Blood Pressure Will Be Within Normal Li mits Active 06/03/2025 Resident Will Consume 75% of Ordered Diet Each D ay Active 06/03/2025 Resident Will Maintain Safe Balance and Coordina tion Active 06/03/2025 Resident Will Not Harm Self or Others Active 06/03/2025 Resident will be free of jose alfredo or injury from fall through next review date. Active 06/03/2025 Resident will not have adver se effects r/t usage of medications with Black Box Warnings. Active 06/03/2025 Resident's Skin Will Remain Intact Active 06/03/2025 The resident will be free fr om discomfort or adverse reactions related to anti-anxiety therapy through the review date. Active 06/03/2025 The resident will be/remain free of psychotropic drug related complications, including movement disorder, discomfort, hypotension, gait disturbance, constipation/impaction or cognitive/behavioral impairment through review date. Active 1 The resident will have no co mplications from rash through the review date. Active 06/03/2025 The resident will not have a n interruption in normal activities due to pain through the review date. Active 06/03/2025 The resident will remain kacey e from injury related to seizure activity through review date. Active 06/03/2025 The resident will show impro vement to maximum potential to perform ADL's by review date. Active 06/03/2025 Functional Status Code Name Recorded Time Value Entered By Ambulation 04/16/2025 Luz Marina camarena Ambulation 04/16/2025 Luz Marina camarena Ambulation 04/16/2025 Not assessed ryanneren Ambulation 04/16/2025 Not assessed ryanneren Bathing 04/08/2025 Extensive Assistance ryanne thad Dressing 04/16/2025 Limited Assistance kking Feeding or Eating 04/16/2025 Supervision - Toileting 04/17/2025 Limited Assistance antonio marroquin Transferring 04/16/2025 Limited Assistance kking Immunizations Immunization Status Vaccine Details Vaccine Code CodeSystem Date Notes Influenza completed Influenza, high-dose, split virus, quadrivalent, injectable, preservative free lotNumber: [id number] expiry: 02/08/2025 Mfg: Afluria Given Left Deltoid intramuscularly 197 CVX created date: 06/08/2024 consent date: 06/02/2024 administer ed date: 06/03/2024 Educated by on 06/08/2024 Administere d in left deltoid. Influenza completed Influenza, high-dose, split virus, quadrivalent, injectable, preservative free lotNumber: [id number] expiry: 01/10/2024 Mfg: Seqirus Given 0.5 ml Right Deltoid intramuscularly 197 CVX created date: 05/31/2023 consent date: 05/31/2023 administer ed date: 05/31/2023 Educated by Jane Arauz on 05/31/2023 Influenza completed Influenza, high-dose, split virus, quadrivalent, injectable, preservative free lotNumber: [id number] expiry: 02/01/2023 Mfg: Seqirus Given 0.5 ml Right Deltoid intramuscularly 197 CVX created date: 05/24/2022 consent date: 05/24/2022 administer ed date: 05/24/2022 Educated by Jane Arauz on 05/24/2022 TB 1 Step Mantoux (PPD) completed tuberculin skin test; unspecified formulation Given 0.1 ml Right Forearm subcutaneously 98 CVX created date: 09/30/2023 consent date: 09/30/2023 administer ed date: 09/25/2023 TB 1 Step Mantoux (PPD) completed tuberculin skin test; unspecified formulation lotNumber: [id number] expiry: 01/26/2023 Given 0.1 ml Left Forearm subcutaneously 98 CVX created date: 10/18/2021 consent date: 10/18/2021 administer ed date: 10/17/2021 SARS-COV-2 (COVID-19) completed SARS-COV-2 (COVID-19) vaccine, mRNA, spike protein, LNP, preservative free, 30 mcg/0.3mL dose, ayla-sucrose formulation Step 2 of Multi-step with next step required 217 CVX created date: 10/17/2021 administer ed date: 09/09/2021 SARS-COV-2 (COVID-19) completed SARS-COV-2 (COVID-19) vaccine, mRNA, spike protein, LNP, preservative free, 30 mcg/0.3mL dose Step 1 of Multi-step with next step required 208 CVX created date: 10/17/2021 administer ed date: 08/18/2021 Prevnar 13 cancelled pneumococcal conjugate vaccine, 13 valent 133 CVX created date: 04/09/2022 consent date: 04/09/2022 Educated by Ermelinda Elias on 04/09/2022 SARS - COV2 (Moderna) Booster completed SARS-COV-2 (COVID-19) vaccine, mRNA, spike protein, LNP, preservative free, 100 mcg/0.5mL dose or 50 mcg/0.25mL dose lotNumber: [id number] Mfg: Moderna Given 0.25 ml Right Deltoid intramuscularly 207 CVX created date: 01/10/2022 consent date: 01/10/2022 administer ed date: 01/10/2022 Educated by Jane Arauz on 01/10/2022 Medications Section Medication Name Status Code CodeSystem Dose Route Frequency Admin Type Sig Text Start Date End Date AmLODIPine Besylate Tablet 10 MG active 680339 RXNORM 1 tablet Oral in the morning Routine Give 1 tablet by mouth in the mornin g Hold for systol ic blood pressu re of 100 or pulse of less than 60 2021 - Aspirin Tablet Chewable active 81 mg Oral in the morning Routine Give 81 mg by mouth in the mornin g relate d to CEREBR AL INFARC TION, UNSPEC IFIED (I63.9 ) 2021 - Milk of Magnesia Suspension 400 MG/5ML active 202831 RXNORM 30 ml Oral as needed PRN Give 30 ml by mouth every 24 hours as needed for Consti pation 2021 - Dulcolax Suppository 10 MG active 971811 RXNORM 1 suppos itory Rectal as needed PRN Insert 1 suppos itory rectal ly every 24 hours as needed for Consti pation 2021 - Tylenol Tablet 325 MG active 972654 RXNORM 650 mg Oral as needed PRN Give 650 mg by mouth every 4 hours as needed for elevat ed temp or pain 2021 - Keppra Tablet 500 MG active 452498 RXNORM 500 mg Oral two times a day Routine Give 500 mg by mouth two times a day relate d to UNSPEC IFIED CONVUL SIONS (R56.9 ) 2021 - Mirapex Tablet 0.25 MG active 382493 RXNORM 0.25 mg Oral at bedtime Routine Give 0.25 mg by mouth at bedtim e relate d to 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 Apply topica lly to naval plaque BID daily but not more than 2 weeks in 1 month. 2023 - Calcipotriene External Ointment 0.005 % aborted 531363 RXNORM n/a n/a Topical one time a day Routine Apply to affect ed areas topica lly one time a day for affect ed areas apply thin film to affect ed plaque s of body. 04/13 traMADol HCl Oral Tablet 50 MG active 496876 RXNORM 50 mg Oral as needed PRN Give 50 mg by mouth every 24 hours as needed for mod-se alejandrina pain must have 6 hours in betwee n schedu led doses AND Give 50 mg by mouth two times a day for modera te-sev ere pain 2023 - 545086 RXNORM 50 mg Oral two times a day Routine Give 50 mg by mouth every 24 hours as needed for mod-se alejandrina pain must have 6 hours in betwee n schedu led doses AND Give 50 mg by mouth two times a day for modera te-sev ere pain 2023 - Vanicream External Cream active n/a n/a Topical two times a day Routine Apply to entire body topica lly two times a day for dry skin 2023 - Tacrolimus External Cream 0.1 % active n/a n/a Topical two times a day Routine Apply to plaque s/righ t 1st finger topica lly two times a day every 2 weeks on Mon, Tue, Sat, Irma, Fri for plaque psoria sis 2023 - Ketoconazole External Cream 2 % active 534360 RXNORM n/a n/a Topical one time a day Routine Apply to Face topica lly one time a day for red areas on face 2023 - MiraLax Packet 17 GM active 074786 RXNORM 1 packet Oral in the morning Routine Give [facility] ve in 4-8oz of water 2023 - RisperDAL Oral Tablet 1 MG active 863607 RXNORM 1 tablet Oral two times a day Routine Give 1 tablet by mouth two times a day for Vascul ar Brielle ia 2024 - RisperDAL Oral Tablet 0.5 MG active 040026 RXNORM 1 tablet Oral one time a day Routine Give 1 tablet by mouth one time a day 2024 - Triamcinolone Acetonide External Cream 0.1 % active 848772 4 RXNORM n/a n/a Topical as needed PRN Apply to thicke julio areas of plaque topica lly every 12 hours as needed for Psoria sis Apply topica lly two times a day to thicke julio areas of plaque on arms, legs and finger s. Not to be used more than 3 weeks a month. 2024 - GuaiFENesin Liquid 100 MG/5ML active 297154 RXNORM 10 millil iter Oral as needed PRN Give 10 millil iter by mouth every 4 hours as needed for Cough 2024 - Xanax Oral Tablet 0.25 MG active 874569 RXNORM 1 tablet Oral as needed PRN Give 1 tablet by mouth every 12 hours as needed for VASCUL AR BRIELLE [place], UNSPEC IFIED SEVERI TY, WITH AGITAT ION for 6 Months 08/04 Bisacodyl EC Tablet Delayed Release 5 MG active 867492 RXNORM 1 tablet Oral one time a day Routine Give 1 tablet by mouth one time a day for Bowel Manage ment 2024 - Dulcolax Oral Tablet Delayed Release 5 MG active 039203 RXNORM 10 mg Oral as needed PRN Give 10 mg by mouth every 24 hours as needed for consti pation 2 tablet s (10mg) orally prn q day for consti pation 2024 - Mental Status Section Date Assessment Total Score Description 03/15/2025 BIMS 05 severe cognitiv e impairment CAM 0 No delirium ind icated 12/14/2024 CAM 0 No delirium ind icated Problems Problem # Description Date of onset Resolved Date Code CodeSystem Concern Status 1 IRRITANT CONTACT DERMATITIS DUE TO FECAL, URINARY OR DUAL INCONTINENCE [address] active 2 CONSTIPATION, UNSPECIFIED [address] active 3 UNSTEADINESS ON FEET [address] active 4 PSORIASIS VULGARIS [address] active 5 XEROSIS CUTIS [address] active 6 DYSPHAGIA, OROPHARYNGEAL PHASE [address] active 7 UNSPECIFIED SYMPTOMS AND SIGNS INVOLVING COGNITIVE FUNCTIONS AND AWARENESS [address] active 8 OTITIS MEDIA, UNSPECIFIED, UNSPECIFIED EAR 023 09/12/[address] completed 9 COVID-19 023 11/10/[address] completed 10 ENCOUNTER FOR OTHER SPECIFIED PROPHYLACTIC MEASURES 05/11/[address] completed 11 OTHER SYMPTOMS AND SIGNS INVOLVING COGNITIVE FUNCTIONS AND AWARENESS 056274255 SNOMED CT active 12 HELICOBACTER PYLORI [H. PYLORI] THE CAUSE OF DISEASES CLASSIFIED ELSEWHERE 03/12/[address] completed 13 ANEMIA, UNSPECIFIED 839262422 SNOMED CT active 14 BRADYCARDIA, UNSPECIFIED 55933973 SNOMED CT active 15 COGNITIVE COMMUNICATION DEFICIT 785855371 SNOMED CT active 16 GASTROINTESTINAL HEMORRHAGE, UNSPECIFIED 09/12/[address] completed 17 HEMORRHAGE OF ANUS AND RECTUM 09/12/[address] completed 18 MELENA [address] active 19 NEED FOR ASSISTANCE WITH PERSONAL CARE [id number] SNOMED CT active 20 VASCULAR DEMENTIA, UNSPECIFIED SEVERITY, WITH AGITATION 73503411 SNOMED CT active 21 MUSCLE WEAKNESS (GENERALIZED) 71773214 SNOMED CT active 22 ANXIETY DISORDER, UNSPECIFIED 131157865 SNOMED CT active 23 RESTLESS LEGS SYNDROME 38444019 SNOMED CT active 24 BRONCHOPNEUMONIA, UNSPECIFIED ORGANISM 04/08/[address] completed 25 PERSONAL HISTORY OF TRANSIENT ISCHEMIC ATTACK (TIA), AND CEREBRAL INFARCTION WITHOUT RESIDUAL DEFICITS 13729139 SNOMED CT active 26 ACIDOSIS 04/03/[address] completed 27 CEREBRAL INFARCTION, UNSPECIFIED 12/11/[address] completed 28 DYSPHAGIA, OROPHARYNGEAL PHASE 04/08/[address] completed 29 ESSENTIAL (PRIMARY) HYPERTENSION 26151176 SNOMED CT active 30 INSOMNIA, UNSPECIFIED 366124938 SNOMED CT active 31 UNSPECIFIED CONVULSIONS 24542772 SNOMED CT active 32 UNSPECIFIED DEMENTIA WITH BEHAVIORAL DISTURBANCE 022 05/11/[address] completed Reason for Referral No Reasons for Referral Entered Social History Social History Observation Description Start Date End Date Code Code System Current Smoking Status Tobacco smoking consumption unknown 511774985 SNOMED CT Sex Assigned At Male 1940 18640-6 [facility] Gender Identity Vital Signs Code Code System Vitals Name Values and Units Timing Information 85034-4 [facility] Pain Level Value=0.0 04/17/2025 8462-4 [facility] Blood Pressure-Diastolic Value=72 Un its=mmHg 04/17/2025 8480-6 [facility] Blood Pressure-Systolic Vuexp=926 Un its=mmHg 04/17/2025 8867-4 [facility] Heart rate Value=69.0 Units=/min 01/2025 9279-1 [facility] Respiratory Rate Value=18.0 Units=/m in 04/17/2025 8310-5 [facility] Body Temperature Value=97.7 Units= F 04/17/2025 41115-8 [facility] O2 % BldC Oximetry Value=94.0 Units= % 04/17/2025 86934-7 [facility] Weight Rgyuq=569.0 Units=Lbs 12/2024 8302-2 [facility] Height Value=68.0 Units=Inches 03/08/2025 2339-0 [facility] Blood Sugar Ducpn=711.0 Units=mg/dL 11/05/2023
--- NOTE | 2025-04-17 13:31 | ED_ITS ---
HPI - GI Bleed 2 General: Chief complaint: GI Bleed Stated complaint: RECTAL BLEEDING Time Seen by Provider: 04/17/25 13:28 History of Present Illness: 84-year-old man with a history of naman ia, stroke, anxiety, hypertension, seizures, dysphagia, vascular dementia, who presents to the emergency room with bright red blood per rectum from the senior care by ambulance. He has no complaints at this time. No abdominal pain. No reports of vomiting. However he does have some advanced dementia. EMS reported that he may be on a blood thinner, however whenever I went through his medication records from the senior care I do not see 1. Related Data Home Medications ?Medication ?Instructions ?Recorded ?Confirmed acetaminophen 325 mg tablet 650 mg PO Q4H PRN Pain 09/0212/07/24 (Tylenol) amlodipine 10 mg tablet 10 mg PO DAILY@07 06/12/22 0 12/07/24 magnesium hydroxide 400 mg/5 mL 30 ml PO DAILY PRN Con stipation 06/12/22 12/07/24 oral suspension (Milk of Magnesia) bisacodyl 10 mg rectal suppository 10 mg [place] DAILY PRN Constipation 12/04/23 12/07/24 (Dulcolax (bisacodyl)) calcipotriene 0.005 % topical See Rx Instructions .Rou te .COMPLEX 12/04/23 12/07/24 ointment donepezil 10 mg tablet 10 mg PO BEDTIME@12/04/23 12/07/24 hydrocortisone 2.5 % topical kit See Rx Instructions . Route .COMPLEX 12/04/23 12/07/24 levetiracetam 500 mg tablet 500 mg PO BID@,12/07/24 (Keppra) metoprolol tartrate 25 mg tablet 12.5 mg PO BID@,12/04/23 12/07/24 pramipexole 0.25 mg tablet 0.25 mg PO BEDTIME@12/0312/07/24 risperidone 0.5 mg tablet 0.5 mg PO DAILY 12/04/23 (Risperdal) tramadol 50 mg tablet See Rx Instructions .Route 0 12/04/23 12/07/24 .COMPLEX PRN Pain triamcinolone acetonide 0.1 % See Rx Instructions .Rou te .COMPLEX 12/04/23 12/07/24 topical cream alprazolam 0.25 mg tablet (Xanax) 0.25 mg PO BID PRN A gitation 08/20/24 12/07/24 emollient (Vanicream topical) 1 applic topical BID dry skin 08/20/24 12/07/24 ketoconazole 2 % topical cream 1 applic topical DAILY to face 08/20/24 12/07/24 mupirocin 2 % topical ointment 1 applic topical BID 12/07/24 tacrolimus 0.1 % in vehicle base See Rx Instructions . Route .COMPLEX 08/20/24 12/07/24 no.238 topical cream aspirin 81 mg tablet,delayed 81 mg PO DAILY 09/03/24 0 12/07/24 release polyethylene glycol 3350 17 gram 17 g PO QAM 12/07/24 12/07/24 oral powder packet (Miralax) risperidone 1 mg tablet (Risperdal) 1 mg PO BID 12/07/24 tramadol 50 mg tablet 50 mg PO BID moderate to sev ere 12/07/24 12/07/24 pain Allergies Allergy/AdvReac Type Severity Reaction Status Date / Time No Known Allergies Allergy Verified 07/21/21 05:58 Review of Systems 2 Narrative: Constitutional symptoms: Negative except as documented in HPI. Skin symptoms: Negative except as documented in HPI. Eye symptoms: Negative except as documented in HPI. ENMT symptoms: Negative except as documented in HPI. Respiratory symptoms: Negative except as documented in HPI. Cardiovascular symptoms: Negative except as documented in HPI. Gastrointestinal symptoms: Negative except as documented in HPI. Genitourinary symptoms: Negative except as documented in HPI. Musculoskeletal symptoms: Negative except as documented in HPI. Neurologic symptoms: Negative except as documented in HPI. Psychiatric symptoms: Negative except as documented in HPI. Endocrine symptoms: Negative except as documented in HPI. PFSH ED 2 PFSH: Medical History (Updated 04/17/25 @ 14:27 by Maria T Carney MD) DNR (do not resuscitate) Restless leg syndrome CVA (cerebral vascular accident) Anxiety Hypertension Dementia Social History Smoking and tobacco/nicotine status: never used tobacco/nicotine Alcohol intake: unknown Substance/Drug Use: unknown Household members: other Housing: Long-Term Physical Exam 2 Narrative: EXAM NARRATIVE: General: Alert, no acute distress. Skin: Warm, dry. Head: Normocephalic, atraumatic. Neck: Supple, trachea midline. Eye: Extraocular movements are intact. Ears, nose, mouth and throat: mucosa moist. Cardiovascular: Regular, Normal peripheral perfusion. Respiratory: Lungs are clear to auscultation, respirations are non-labored, breath sounds are equal, Symmetrical chest wall expansion. Gastrointestinal: Soft, Nontender, Non distended Musculoskeletal: Normal ROM, no deformity. Neurological: Alert , No focal neurological deficit observed. Psychiatric: Pleasantly confused Course 2 Vital Signs: Vital signs: Vital Signs Temperature 98.1 F 04/17/25 13:28 Pulse Rate 62 04/17/25 13:28 Respiratory Rate 14 04/17/25 13:28 Blood Pressure 146/73 04/17/25 13:28 Pulse Oximetry 100 04/17/25 13:28 Oxygen Delivery Me thod Room Air 04/17/25 13:28 MDM - GI Bleed Medical Decision Making Medical decision making: Differential diagnosis including but not limited to and based on the above HPI, review of systems and physical exam: In a patient with upper GI bleeding would have concern for upper gi bleed from varices or ulcer. Concern for anemia. Concern for liver disease. concern for anticoagulation. Orders placed to evaluate differential diagnosis based on the above differential, HPI and physical exam Lab Review: Laboratory results were reviewed and interpreted by myself the emergency room physician. Hemoglobin fairly stable 11.4. BUN/creatinine 26 and 1.3 which are at or about his baseline. I reviewed the patient's medical record. Reexamination: Patient remained stable. No increased work of breathing. No altered mental status. No focal motor deficits. Bright red blood per rectum likely diverticular bleed or internal hemorrhoid. No significant loss in blood or decrease in his blood counts. Vitals are normal. No pain on exam. Stable to discharge back to the senior care Assessment and plan: Hematochezia - Discharged home - Discussed plan with patient. Answered any questions. - Evaluation and treatment of this problem were appropriate in the emergency setting. Lab Data 04/17/25 13:38 04/17/25 13:38 Laboratory Results WBC 9.05 10^3/uL (3.29-11.43) 04/17/25 13:38 RBC 3.88 10^6/uL (3.85-5.65) 04/17/25 13:38 Hgb 11.40 g/dL (11.27-16.99) 04/17/25 13:38 Hct 35.6 % (37-53) L 04/17/25 13:38 MCV 91.8 fl (82-101) 04/17/25 13:38 MCH 29.4 pg (27-33) 04/17/25 13:38 MCHC 32.0 g/dL (30-55) 04/17/25 13:38 RDW 12.2 % (12.1-15.1) 04/17/25 13:38 Plt Count 236 10^3/cmm (157-399) 04/17/25 13:38 MPV 10.0 fL (7.4-10.4) 04/17/25 13:38 Neut % (Auto) 74.2 % 04/17/25 13:38 Lymph % (Auto) 13.0 % 04/17/25 13:38 [place] % (Auto) 6.5 % 04/17/25 13:38 Eos % (Auto) 5.6 % 04/17/25 13:38 Baso % (Auto) 0.3 % 04/17/25 13:38 Neut # (Auto) 6.70 10^3/uL (1.8-7.7) 04/17/25 13:38 Lymph # (Auto) 1.2 10^3/uL (0.8-4.8) 04/17/25 13:38 [place] # (Auto) 0.6 10^3/uL (0.2-0.9) 04/17/25 13:38 Eos # (Auto) 0.5 10^3/uL (0.0-0.8) 04/17/25 13:38 Baso # (Auto) 0.0 10^3/uL (0.0-0.1) 04/17/25 13:38 Nucleated RBC % (auto) 0 % 04/17/25 13:38 Nucleated RBCs # 0.0 /100WBC 04/17/25 13:38 PT 13.20 SECONDS (12.1-14.9) 04/17/25 13:38 INR 0.94 (0.8-1.2) 04/17/25 13:38 APTT 25.3 SECONDS (23.9-36.7) 04/17/25 13:38 Sodium 135 mmol/L (136-145) L 04/17/25 13:38 Potassium 4.5 mmol/L (3.5-5.1) 04/17/25 13:38 Chloride 102 mmol/L (98-107) 04/17/25 13:38 Carbon Dioxide 23 mmol/L (22-29) 04/17/25 13:38 Anion Gap 14.5 (5-19) 04/17/25 13:38 BUN 26 mg/dL (8-23) H 04/17/25 13:38 Creatinine 1.3 mg/dL (0.7-1.2) H 04/17/25 13:38 GFR Calculation Not Reportable 04/17/25 13:38 Glucose 163 mg/dL (65-115) H 04/17/25 13:38 Calculated Osmolality 288 mOsm/kg (285-295) 04/17/25 13:38 Calcium 9.4 mg/dL (8.5-10.5) 04/17/25 13:38 Total Bilirubin 0.2 mg/dL (0.15-1.2) 04/17/25 13:38 AST 14 U/L (0-40) 04/17/25 13:38 ALT 11 U/L (0-41) 04/17/25 13:38 Alkaline Phosphatase 105 U/L (40-130) 04/17/25 13:38 Total Protein 6.9 g/dL (6.6-8.7) 04/17/25 13:38 Albumin 3.9 g/dL (3.5-5.2) 04/17/25 13:38 Globulin 3.0 g/dL (1.3-4.6) 04/17/25 13:38 No radiology studies performed this visit Discharge Plan Discharge Patient Disposition: Home Clinical Impression: Hematochezia Condition: Stable Prescriptions: No Action levetiracetam [Keppra] 500 mg Tablet 500 mg PO BID@07,19 donepezil 10 mg Tablet 10 mg PO BEDTIME@21 tramadol [Ultram] 50 mg Tablet See Rx Instructions .ROUTE .COMPLEX PRN (Reason: Pain) Rx Instructions: Give 1 tablet by mouth every 24 hours as needed for moderate to severe pain. Must have 6 hours in between scheduled dose. triamcinolone acetonide 0.1 % Cream See Rx Instructions .ROUTE .COMPLEX Rx Instructions: Apply to thickned areas of plaque topically twice daily every month starting on the for 14 days for rash areas on arms, legs and low back only. Not to be used more than 2 weeks a month. bisacodyl [Dulcolax (bisacodyl)] 10 mg Suppository 10 mg [place] DAILY PRN (Reason: Constipation) pramipexole [Mirapex] 0.25 mg Tablet 0.25 mg PO BEDTIME@19 risperidone [Risperdal] 0.5 mg Tablet 0.5 mg PO DAILY calcipotriene 0.005 % Ointment See Rx Instructions .ROUTE .COMPLEX Rx Instructions: APPLY A THIN FILM TO AFFECTED PLAQUES OF BODY. hydrocortisone 2.5 % Kit See Rx Instructions .ROUTE .COMPLEX Rx Instructions: APPLY TO NAVAL AREA BID EVERY MONTH STARTING ON THE FOR 14 DAYS FOR DRY CRUSTY AREAS ON SKIN-APPLY TOPICALLY TO NAVAL PLAQUE BID DAILY BUT NOT MORE THAN 2 WEEKS IN 1 MONTH metoprolol tartrate 25 mg tablet 12.5 mg PO BID@, alprazolam [Xanax] 0.25 mg Tablet 0.25 mg PO BID PRN (Reason: Agitation) mupirocin 2 % Ointment 1 applic TOPICAL BID ketoconazole 2 % Cream 1 applic TOPICAL DAILY tacrolimus-vehicle base no.238 0.1 % Cream See Rx Instructions .ROUTE .COMPLEX Rx Instructions: Apply to plaques on right first finger topically twice daily every 2 weeks on Saturday, 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 emollient [Vanicream] Cream 1 applic topical BID Rx Instructions: Apply to entire body topically twice daily for dry skin. polyethylene glycol 3350 [Miralax] 17 gram Powder In Packet 17 g PO QAM risperidone [Risperdal] 1 mg Tablet 1 mg PO BID tramadol 50 mg Tablet 50 mg PO BID acetaminophen [Tylenol] 325 mg Tablet 650 mg PO Q4H PRN (Reason: Pain) magnesium hydroxide [Milk of Magnesia] 400 mg/5 mL Suspension 30 ml PO DAILY PRN (Reason: Constipation) amlodipine 10 mg Tablet 10 mg PO DAILY@07 Rx Instructions: hold for sbp of 100 or pulse of less than 60 aspirin [Aspir-81] 81 mg Tablet,Delayed Release (Dr/Ec) 81 mg PO DAILY Discharge Orders: Discharge ED (Routine); Ordered 04/17/25 Ordered By: Maria T Carney Referrals: Allan Peñaloza, [Primary Care Provider, Internal Medicine] Discharge Diet: Usual diet Discharge Activity: Increase activity as tolerated Patient Instructions: Rectal Bleeding (ED), Opioid Safety, Pain Management, Patient Portal & Nisha Instructions Activity Restrictions/Additional Instructions: Thank you for choosing [facility] for your healthcare needs today. You have been screened and evaluated and felt safe for discharge. Health conditions do change or evolve sometimes and as such it is important that you follow up with your Primary Doctor to be re checked, 3-5 days is a general good time frame for follow up. You are always welcome to return to the ED for re assessment if your symptoms are worsening or you have new concerns Print Language: Mohawk Coding Level of Care Code ED Correctional Corporal for Vern Lopez
[2025-04-17 13:43] LABS: Hematocrit 35.6 % (37-53); Hemoglobin 11.40 g/dL (11.27-16.99); Mean Corpuscular HGB Conc 32.0 g/dL (30-55); Mean Corpuscular Hemoglobin 29.4 pg (27-33); Mean Corpuscular Volume 91.8 fl (82-101); Nucleated Red Blood Cells % 0 %; Platelet Count 236 10^3/cmm (157-399); Red Blood Count 3.88 10^6/uL (3.85-5.65); White Blood Count 9.05 10^3/uL (3.29-11.43)
--- NOTE | 2025-04-17 13:50 | PC.NURSE ---
son Edi called fpr update, pt had just arrived, son informed that we just started a workup on pt. Pt son states that watch him he will throw hands. Pt has severe dementia.
[2025-04-17 14:04] LABS: INR 0.94 (0.8-1.2); Prothrombin Time 13.20 SECONDS (12.1-14.9)
[2025-04-17 14:05] LABS: Partial Thromboplastin Time 25.3 SECONDS (23.9-36.7)
[2025-04-17 14:11] LABS: Alanine Aminotransferase 11 U/L (0-41); Albumin Level 3.9 g/dL (3.5-5.2); Alkaline Phosphatase 105 U/L (40-130); Anion Gap 14.5 (5-19); Aspartate Amino Transferase 14 U/L (0-40); Blood Urea Nitrogen 26 mg/dL (8-23); Calcium 9.4 mg/dL (8.5-10.5); Carbon Dioxide 23 mmol/L (22-29); Chloride 102 mmol/L (98-107); Creatinine Clr Calc Pharmacy 41.7224; Globulin 3.0 g/dL (1.3-4.6); Glucose 163 mg/dL (65-115); Osmolality Calculated 288 mOsm/kg (285-295); Potassium 4.5 mmol/L (3.5-5.1); Sodium 135 mmol/L (136-145); Total Protein 6.9 g/dL (6.6-8.7)
[2025-04-17] MEDS: pantoprazole 40 mg SDV 80 MG IVP (15:55)
[2025-04-17 16:00] LABS: Hematocrit 34.8 % (37-53); Hemoglobin 11.20 g/dL (11.27-16.99); Mean Corpuscular HGB Conc 32.2 g/dL (30-55); Mean Corpuscular Hemoglobin 29.9 pg (27-33); Mean Corpuscular Volume 92.8 fl (82-101); Nucleated Red Blood Cells % 0 %; Platelet Count 243 10^3/cmm (157-399); Red Blood Count 3.75 10^6/uL (3.85-5.65); White Blood Count 7.46 10^3/uL (3.29-11.43)
--- NOTE | 2025-04-17 16:10 | PC.NURSE ---
This nurse went to check and change pt, as pt is incontinent prior to pt dc to [facility], upon checking pt had saturated brief in dark red blood with bloody odor, Charge nurse Linda went to get Dr. Carney to show the rectal bleeding, Notified and aware. Pt then changed into gown, cleaned up and put into dry brief, allergy band, guardian band, and id band on. Call light within reach.
[2025-04-17 16:15] LABS: Alanine Aminotransferase 11 U/L (0-41); Albumin Level 3.6 g/dL (3.5-5.2); Alkaline Phosphatase 103 U/L (40-130); Anion Gap 13.4 (5-19); Aspartate Amino Transferase 14 U/L (0-40); Blood Urea Nitrogen 21 mg/dL (8-23); Calcium 9.2 mg/dL (8.5-10.5); Carbon Dioxide 23 mmol/L (22-29); Chloride 101 mmol/L (98-107); Creatinine Clr Calc Pharmacy 41.7224; Globulin 3.1 g/dL (1.3-4.6); Glucose 159 mg/dL (65-115); Osmolality Calculated 282 mOsm/kg (285-295); Potassium 4.4 mmol/L (3.5-5.1); Sodium 133 mmol/L (136-145); Total Protein 6.7 g/dL (6.6-8.7)
--- NOTE | 2025-04-17 17:20 | PM.HP ---
Providers/Chief Complaint Primary Care Provider: Allan Peñaloza DO Chief Complaint: RECTAL BLEEDING History of Present Illness Kelton Tolbert is a 84 year old male with past medical history of dementia anxiety hypertension CVA, seizures, hypertension, dysphagia, vascular dementia who is a shelter resident presented to the hospital for bright red blood per rectum. Patient is on aspirin at home. Denied any active complaints. Initial labs checked. Grossly within normal limits. He was about to be discharged home however had a large bloody bowel movement. At that point it was decided to admit the patient for observation. ER doctor spoke to family caregiver DPPETR who said that in the past patient did not want any sort of aggressive interventions and if things did take a turn for the worst that required more aggressive interventions other than fluids medications or even blood products they would prefer to be made comfortable. At this time patient will be admitted for hematochezia. ER course: Hemoglobin fairly stable 11.4, BUN 26, creatinine 1.3. No nausea vomiting. I called pt's guardian to discuss patients care and left a voicemail for call back. Patient is confused and unable to provide any information at this time He has had 2 more bloody BM since ER arrival Medications/Allergies Home Medications ?Medication ?Instructions ?Recorded ?Confirmed ?Last Taken ?Type acetaminophen 325 mg tablet 650 mg PO Q4H PRN Pain 06/12/22 04/17/25 Unknown History (Tylenol) amlodipine 10 mg tablet 10 mg PO DAILY@07 06/12/22 04/17/25 04/17/25 History magnesium hydroxide 400 mg/5 mL 30 ml PO DAILY PRN Constipation 06/12/22 04/17/25 Unknown History oral suspension (Milk of Magnesia) bisacodyl 10 mg rectal suppository 10 mg [place] DAILY PRN Constipation 12/04/23 04/17/25 Unknown History (Dulcolax (bisacodyl)) donepezil 10 mg tablet 10 mg PO BEDTIME@21 12/04/23 04/17/25 04/16/25 History hydrocortisone 2.5 % topical kit See Rx Instructions .Route .COMPLEX 12/04/23 04/17/25 04/17/25 History levetiracetam 500 mg tablet 500 mg PO BID@07,19 12/04/23 04/17/25 04/17/25 History (Keppra) metoprolol tartrate 25 mg tablet 12.5 mg PO BID@07,19 12/04/23 04/17/25 04/17/25 History pramipexole 0.25 mg tablet 0.25 mg PO BEDTIME@19 12/04/23 04/17/25 04/16/25 History risperidone 0.5 mg tablet 0.5 mg PO DAILY 12/04/23 04/17/25 04/17/25 History (Risperdal) tramadol 50 mg tablet See Rx Instructions .Route 12/04/23 04/17/25 09/03/24 History .COMPLEX PRN Pain triamcinolone acetonide 0.1 % See Rx Instructions .Route .COMPLEX 12/04/23 04/17/25 04/17/25 History topical cream alprazolam 0.25 mg tablet (Xanax) 0.25 mg PO BID PRN Agitation 08/20/24 04/17/25 09/01/24 History emollient (Vanicream topical) 1 applic topical BID dry skin 08/20/24 04/17/25 04/17/25 History ketoconazole 2 % topical cream 1 applic topical DAILY to face 08/20/24 04/17/25 04/17/25 History mupirocin 2 % topical ointment 1 applic topical BID 08/20/24 04/17/25 04/17/25 History tacrolimus 0.1 % in vehicle base See Rx Instructions .Route .COMPLEX 08/20/24 04/17/25 04/09/25 History no.238 topical cream aspirin 81 mg tablet,delayed 81 mg PO DAILY 09/03/24 04/17/25 04/17/25 History release polyethylene glycol 3350 17 gram 17 g PO QAM 12/07/24 04/17/25 04/17/25 History oral powder packet (Miralax) risperidone 1 mg tablet (Risperdal) 1 mg PO BID 12/07/24 04/17/25 04/17/25 History tramadol 50 mg tablet 50 mg PO BID moderate to severe 12/07/24 04/17/25 04/17/25 History pain bisacodyl 5 mg tablet 5 mg PO DAILY 04/17/25 04/17/25 04/17/25 History bisacodyl 5 mg tablet,delayed 10 mg PO DAILY PRN Constipation 04/17/25 04/17/25 Unknown History release (Dulcolax (bisacodyl)) guaifenesin 100 mg/5 mL oral liquid 200 mg PO Q4H PRN Cough 04/17/25 04/17/25 Unknown History Allergies Allergy/AdvReac Type Severity Reaction Status Date / Time No Known Allergies Allergy Verified 07/21/21 05:58 PFSH Acute PFSH: Medical History (Updated 04/17/25 @ 17:32 by Viky Sheppard MD) Hypertension Dementia DNR (do not resuscitate) Restless leg syndrome CVA (cerebral vascular accident) Anxiety Social History Smoking and tobacco/nicotine status: never used tobacco/nicotine Alcohol intake: unknown Substance/Drug Use: unknown Household members: other Housing: Residential Vitals/I&O/Wt Last Vital Signs Temp 98.1 F 04/17/25 13:28 Pulse 64 04/17/25 16:00 Resp 14 04/17/25 16:00 BP 148/73 04/17/25 16:00 Pulse Ox 96 04/17/25 16:00 O2 Del Method Room Air 04/17/25 16:00 Weight last 48 hrs Weight 81.647 kg Physical Exam Narrative: General: Alert oriented x3, patient seen laying in bed appearing comfortable at this time HEENT: Normocephalic, atraumatic, EOMI, room air. Cardio: Regular rate rhythm, normal S1-S2, Respiratory: Clear to auscultation bilaterally no wheezing or rhonchi GI: Abdomen soft, nontender, nondistended, bowel sounds + Extremities: no edema, no cyanosis Data 04/17/25 15:51 04/17/25 15:51 A&P Assessment and plan 1. Hematochezia: 2. DNR (do not resuscitate): 3. Dementia: 4. Restless leg syndrome: 5. Hypertension: 6. Anxiety: Plan: #Hematochezia #Vascular Dementia - pt on locked dementia unit #Hypertension #HX Of CVA #Seizures #Dysphagia - monitor cbc q12h - monitor for hematochezia - consult gen surgery - continue keppra 500 BID - protonix 40 IV BID - Sucralfate BID - Hold lopressor - HTN stable at this time - Hold aspirin - continue risperidone 1 mg bID - transfuse for HB < 7 - hold donepizil - cr. 1.3, at baseline - Last colonoscopy 2022, multiple diverticula, no active bleed DNR/DNI PDMP PDMP Reviewed: Not Reviewed Attestations Medical Necessity Statement*: Hematochezia, > 2 midnight stay Diagnoses Hematochezia K92.1 DNR (do not resuscitate) Z66 Dementia F03.90 Restless leg syndrome G25.81 Hypertension I10 Anxiety F41.9
--- NOTE | 2025-04-17 18:56 | PC.NURSE ---
at 1800 this nurse and tech changed pt, pt had more dark red blood rectal stool. Pt changed and cleaned into dry brief.
--- NOTE | 2025-04-17 19:30 | P.PNCC_ITS ---
Critical Care Event Note Got a call from nurse at around 7 PM stating that patient having significant amount of hematochezia. Heart rate of 68 bpm blood pressure 130/60 mmHg. Patient remains on room air. On review of chart it seems patient was admitted earlier in the evening with hematochezia. ER physician had spoken to patient's guardian who had requested o nly conservative treatment and no aggressive management. The admitting provider was not able to get in touch with the family/DPOA to confirm the conversation. This provider tried to call patient's guardian/son Mr. Daley and [id number] over the phone. Unfortunately could not get in touch and hence left a voice message. Received a call from Mr. Daley 20 minutes later. We discussed Kelton is having active hematochezia/bleeding per rectum currently. Discussed of treatment going forward. Options discussed were 1. As per the conversation between son and ER physician 2 make patient comfort care. #2. To continue treatment conservatively, checking hemoglobin every few hours, blood transfusion when patient becomes hemodynamically unstable or hemoglobin drops below 8 but that would not treat the underlying cause and there is a chance he would continue to bleed. 3. To proceed to find the cause of bleeding, possible treatment options after that would be a colonoscopy to find treatment, possible transfer for IR embolization, possible colectomy. Son verbalized understanding and states he would want everything to be done except colectomy/open abdomen surgery. He is even open to transfer patient to a tertiary center where IR embolization can be done. Again confirmed CODE STATUS of the patient. He confirms the patient is DNR/DNI and would not want any aggressive resuscitative measures including chest compressions or mechanical ventilation. Plan: Check hemoglobin every 6 hours and stat. Request for 2 units of blood. Blood to be transfused if systolic blood pressure drops below 100 mmHg, hemoglobin drops below 8. Transferred to ICU. Will consult surgery. Consulted on-call surgeon and informed of the conversation between this provider and patient's guardian/son. Surgeon requests GoLytely 40 mg one-time along with 1 bottle of mag citrate. The high probability of a clinically significant, sudden or life threatening deterioration of the patient's [cardiac, GI, goals of care] system(s) required my full and direct attention, intervention and personal management. The critical care time is as shown. This time is in addition to time spent performing any reported procedures but includes the following: [x] Data and vital sign review and interpretation [x] Patient assessment, examination and intervention [x] Documentation [x] Medication orders and management Critical Care Time Code activated: No Critical Care Time (min): 70 Coding Level of Care Code Critical Care Other Coding Information Prolonged care (total time indicated above or notated here) Time Spent (min) 70
--- NOTE | 2025-04-17 19:33 | CTR_ITS ---
PROCEDURE INFORMATION: Exam: CTA Abdomen and Pelvis With Contrast Exam date and time: 04/17/2025 9:05 PM Age: 84 years old Clinical indication: Other: Lower gi bleed/anemia; Lower gi bleed with anemia; Additional info: Rectal bleed TECHNIQUE: Imaging protocol: Computed tomographic angiography of the abdomen and pelvis with contrast. Exam focused on the arteries. 3D rendering (Not supervised by radiologist): MIP and/or 3D reconstructed images were created by the technologist. Radiation optimization: All CT scans at this facility use at least one of these dose optimization techniques: automated exposure control; mA and/or kV adjustment per patient size (includes targeted exams where dose is matched to clinical indication); or iterative reconstruction. Contrast material: OMNI 350; Contrast volume: 100 ml; Contrast route: INTRAVENOUS (IV); COMPARISON: CT abdomen pelvis w con* [id number] 06/12/2022 3:25 PM RADIATION DOSE METRICS: Total DLP (mGy-cm): 2438.7 FINDINGS: Site of active bleeding into bowel left lateral wall: At junction distal descending and proximal sigmoid. Aorta: No aortic aneurysm. No aortic dissection. Mild atherosclerosis. Celiac trunk and mesenteric arteries: No occlusion or significant stenosis. Renal arteries: No occlusion or significant stenosis. Right iliac arteries: No occlusion or significant stenosis. Mild atherosclerosis. Left iliac arteries: No occlusion or significant stenosis. Mild atherosclerosis Lower chest: Mild cardiomegaly. Small right pleural effusion. No acute parenchymal process Liver: Fatty change liver. 8.6 mm round low-density lesion left lobe most likely a cyst. No follow-up imaging recommended. Gallbladder and biliary ducts: Unremarkable. No calcified stones. No ductal dilation. Pancreas: Unremarkable. No mass. No ductal dilation. Spleen: No splenomegaly. 7.6 mm round low-density lesion spleen most likely small cyst. No follow-up imaging recommended.No follow-up is necessary. Adrenal glands: Unremarkable. No mass. Kidneys and ureters: Unremarkable. No solid mass. No hydronephrosis. Mild perinephric stranding a nonspecific finding. Moderate-sized hiatal hernia. Some wall thickening distal esophagus. Correlate symptoms of reflux esophagitis. Stomach and bowel: Small hiatal hernia. Appearance of mild wall thickening of the distal esophagus could represent some reflux esophagitis.. Small bowel contains increased fluid and small air-fluid levels. No evidence of obstruction or wall thickening. No significant distension. This may represent mild ileus. Moderate amount of semi solid stool cecum ascending colon proximal transverse. Prominent amount liquid stool and some semi solid stool distal descending colon, and rectosigmoid. Site of active extravasation contrast material seen lateral wall junction of distal descending and proximal sigmoid colon and appears to be associated with a diverticulum. Marked diverticulosis sigmoid colon and distal descending colon. Appendix: No evidence of appendicitis. Intraperitoneal space: Unremarkable. No free air. No significant fluid collection. Lymph nodes: Unremarkable. No enlarged lymph nodes. Urinary bladder: Moderate distension of the urinary bladder. Reproductive: Geqk-dx-pnrtaiar enlargement of the prostate with lobulation of the superior aspect. If patient has not been followed by a urologist, nonemergent urology consult recommended. Bones/joints: Demineralization consistent with age. Narrowing and vacuum disc phenomenon L4-L5 and L5-S1. Degenerative changes present most marked lower facet joints. Soft tissues: Small fat containing umbilical hernia. Small fat containing left inguinal hernia. CT/CT angio abdomen pelvis [id number] IMPRESSION: 1. Mild atherosclerosis. 2. Active intraluminal bleed lateral wall junction of the distal descending and proximal sigmoid colon associated with a diverticulum. 3. Marked diverticulosis of sigmoid colon and distal descending colon. Prominent amount semi solid stool and liquid stool sigmoid colon and rectum. 4. Moderate distension of the urinary bladder. 5. Kzkf-if-jhnlinbt enlargement of the prostate with lobulation superior aspect. 6. Fatty change liver. Probable hepatic cyst.. 7. Probable small splenic cyst 8. Small fat containing umbilical and left inguinal hernia. 9. Degenerative changes lumbar spine.
--- NOTE | 2025-04-17 19:46 | PC.NURSE ---
Received phone call from Dr. Luis regarding patient bloody stools. Per MD he has reached out to guardian and daughter in law multiple times and left messages. At this time per the ER doctors note the family does not want any aggressive measures. Dr. Borrego to order 2 units PRBC to be transfused if hgb drops below 8 or SBP drops below 100. to also order stat CTA abd, CBC, and IVF.
[2025-04-17 20:07] LABS: Hematocrit 31.9 % (37-53); Hemoglobin 10.50 g/dL (11.27-16.99); Mean Corpuscular HGB Conc 32.9 g/dL (30-55); Mean Corpuscular Hemoglobin 30.1 pg (27-33); Mean Corpuscular Volume 91.4 fl (82-101); Nucleated Red Blood Cells % 0 %; Platelet Count 227 10^3/cmm (157-399); Red Blood Count 3.49 10^6/uL (3.85-5.65); White Blood Count 6.09 10^3/uL (3.29-11.43)
--- NOTE | 2025-04-17 20:12 | PM.MISC ---
Miscellaneous Note Note: Dr. Flores consulted surgery for hematochezia and consideration of colonoscopy. Spoke to Edieliseo Tolbert (POA and son), and he requested we do not do any procedures (including colonoscopy) for the time being. He will discuss with hospitalist goals of care in the morning and they understand that at the earliest, colonoscopy would be done after prepping on Saturday. Per Edi Tolbert, if patient becomes unstable, he does not want any interventions done on the patient. Informed Dr. Flores of these wishes.
--- NOTE | 2025-04-17 20:12 | PM.CONSULT ---
Providers/Reason For Consult Consulting Physician/Specialty*: Dr. Gipson general surgery Reason for Consult*: Hematochezia Attending Physician: Viky Sheppard MD Primary Care Provider: Allan Peñaloza DO History of Present Illness History of Present Illness Kelton Tolbert is a 84 year old male admitted with hematochezia. POA decided against proceeding with endoscopy or any surgical intervention. Hospitalist managing conservatively. Medications/Allergies Home Medications ?Medication ?Instructions ?Recorded ?Confirmed ?Last Taken ?Type acetaminophen 325 mg tablet 650 mg PO Q4H PRN Pain 06/12/22 04/17/25 Unknown History (Tylenol) amlodipine 10 mg tablet 10 mg PO DAILY@07 06/12/22 04/17/25 04/17/25 History magnesium hydroxide 400 mg/5 mL 30 ml PO DAILY PRN Constipation 06/12/22 04/17/25 Unknown History oral suspension (Milk of Magnesia) bisacodyl 10 mg rectal suppository 10 mg OR DAILY PRN Constipation 12/04/23 04/17/25 Unknown History (Dulcolax (bisacodyl)) donepezil 10 mg tablet 10 mg PO BEDTIME@12/04/23 04/17/25 04/16/25 History hydrocortisone 2.5 % topical kit See Rx Instructions .Route .COMPLEX 12/04/23 04/17/25 04/17/25 History levetiracetam 500 mg tablet 500 mg PO BID@07,12/04/23 04/17/25 04/17/25 History (Keppra) metoprolol tartrate 25 mg tablet 12.5 mg PO BID@,12/04/23 04/17/25 04/17/25 History pramipexole 0.25 mg tablet 0.25 mg PO BEDTIME@12/04/23 04/17/25 04/16/25 History risperidone 0.5 mg tablet 0.5 mg PO DAILY 12/04/23 04/17/25 04/17/25 History (Risperdal) tramadol 50 mg tablet See Rx Instructions .Route 12/04/23 04/17/25 09/03/24 History .COMPLEX PRN Pain triamcinolone acetonide 0.1 % See Rx Instructions .Route .COMPLEX 12/04/23 04/17/25 04/17/25 History topical cream alprazolam 0.25 mg tablet (Xanax) 0.25 mg PO BID PRN Agitation 08/20/24 04/17/25 09/01/24 History emollient (Vanicream topical) 1 applic topical BID dry skin 08/20/24 04/17/25 04/17/25 History ketoconazole 2 % topical cream 1 applic topical DAILY to face 08/20/24 04/17/25 04/17/25 History mupirocin 2 % topical ointment 1 applic topical BID 08/20/24 04/17/25 04/17/25 History tacrolimus 0.1 % in vehicle base See Rx Instructions .Route .COMPLEX 08/20/24 04/17/25 04/09/25 History no.238 topical cream aspirin 81 mg tablet,delayed 81 mg PO DAILY 09/03/24 04/17/25 04/17/25 History release polyethylene glycol 3350 17 gram 17 g PO QAM 12/07/24 04/17/25 04/17/25 History oral powder packet (Miralax) risperidone 1 mg tablet (Risperdal) 1 mg PO BID 12/07/24 04/17/25 04/17/25 History tramadol 50 mg tablet 50 mg PO BID moderate to severe 12/07/24 04/17/25 04/17/25 History pain bisacodyl 5 mg tablet 5 mg PO DAILY 04/17/25 04/17/25 04/17/25 History bisacodyl 5 mg tablet,delayed 10 mg PO DAILY PRN Constipation 04/17/25 04/17/25 Unknown History release (Dulcolax (bisacodyl)) guaifenesin 100 mg/5 mL oral liquid 200 mg PO Q4H PRN Cough 04/17/25 04/17/25 Unknown History Allergies Allergy/AdvReac Type Severity Reaction Status Date / Time No Known Allergies Allergy Verified 07/21/21 05:58 PFSH Acute PFSH: Medical History (Updated 04/17/25 @ 17:32 by Viky Sheppard MD) Hypertension Dementia DNR (do not resuscitate) Restless leg syndrome CVA (cerebral vascular accident) Anxiety Social History Smoking and tobacco/nicotine status: never used tobacco/nicotine Alcohol intake: unknown Substance/Drug Use: unknown Household members: other Housing: [facility] Vitals/I&O/Wt Last Vital Signs Temp 98.1 F 04/17/25 13:28 Pulse 67 04/17/25 19:24 Resp 14 04/17/25 16:00 BP 131/78 04/17/25 19:24 Pulse Ox 95 04/17/25 19:24 O2 Del Method Room Air 04/17/25 19:00 Weight last 48 hrs Weight 180 lb Physical Exam Narrative: Chest: Unlabored breathing room air. No lymphadenopathy. Heart: Regular rate and rhythm. Abdomen: Soft, nontender, nondistended. No masses or lymphadenopathy. Data 04/18/25 17:50 04/18/25 03:15 A&P Assessment and plan 1. Hematochezia: Plan: 84-year-old male admitted with hematochezia. On admission ER doctor addressed goals of care with POA and decided against any endoscopy or surgical procedures. Hospitalist calling for worsening hematochezia. I called his POA and he confirmed he did not want any endoscopy or surgeries done on Mr. Tolbert. I relayed this plan to the hospitalist who agreed. PDMP PDMP Reviewed: Not Reviewed Coding Level of Care Code 02946 Diagnoses Hematochezia K92.1
[2025-04-17] MEDS: iohexol 350 mg/mL 500 mL Btl (per mL) IV (21:13)
[2025-04-17 21:46] LABS: Hematocrit 29.1 % (37-53); Hemoglobin 9.40 g/dL (11.27-16.99)
--- NOTE | 2025-04-17 23:12 | PC.NURSE ---
Called Dr. aRymond regarding plan for the patient. Clarifying orders to transfer patient to ICU and certain medications. Per Dr. Raymond family has had multiple conversations with doctors and at this time the plan is unclear. At this time we will wait on CTA abd results then decide upon the plan. MD to call son with results.
--- NOTE | 2025-04-17 23:25 | PM.MISC ---
Miscellaneous Note Purpose of Documentation: CT of the abdomen and pelvis has been completed which shows an active diverticular bleeding around the descending colon and sigmoid colon. General surgery was updated regarding these findings. Patient has had a large bloody bowel movement. Hemoglobin at 9.4, down from 11.4 earlier on admission. Given the above findings on CTA, initiated transfer to [facility] for IR embolization. We are currently awaiting a bed for transfer. Currently patient is hemodynamically stable. Blood pressure 130/80. Heart rate of 92. He is being moved to ICU for close monitoring. Discussed updates with son, he is in agreement for transfer for IR embolization.
--- NOTE | 2025-04-17 23:51 | PC.NURSE ---
Received phone call from Dr. Raymond regarding results of CTA a/p. Per MD he is having active diverticular bleeding. In her phone call with the son, they have decied the patient will be transferred to [facility] when a bed becomes avaliable. At this time continue to transfer patient to ICU and get a stat hgb. Notified Dr. Raymond that patient's hematochezia is getting worse producing abou 2-3 cups of dark red blood with clots.
[2025-04-18] VITALS (52 sets, daily range): BP systolic 104–167; BP diastolic 58–110; PULSE 55–108; RESP 14–26; TEMP 36.7–37; O2SAT 82–100
[2025-04-18 00:26] LABS: Hematocrit 28.2 % (37-53); Hemoglobin 9.40 g/dL (11.27-16.99)
--- NOTE | 2025-04-18 01:16 | PC.NURSE ---
Patient transferred to ICU per Dr. Raymond. Report given to Shanda REYES. [place] Yomaira called and updated given to Deidra Haq in dementia care unit ([phone]).
[2025-04-18] MEDS: pantoprazole 40 mg SDV IVP ×2 (03:46→15:49)
[2025-04-18 04:32] LABS: Hematocrit 27.5 % (37-53); Hemoglobin 8.90 g/dL (11.27-16.99); Mean Corpuscular HGB Conc 32.4 g/dL (30-55); Mean Corpuscular Hemoglobin 30.1 pg (27-33); Mean Corpuscular Volume 92.9 fl (82-101); Nucleated Red Blood Cells % 0 %; Platelet Count 210 10^3/cmm (157-399); Red Blood Count 2.96 10^6/uL (3.85-5.65); White Blood Count 7.51 10^3/uL (3.29-11.43)
[2025-04-18 04:56] LABS: Anion Gap 11.1 (5-19); Blood Urea Nitrogen 24 mg/dL (8-23); Calcium 8.9 mg/dL (8.5-10.5); Carbon Dioxide 23 mmol/L (22-29); Chloride 107 mmol/L (98-107); Glucose 125 mg/dL (65-115); Magnesium 2.1 mg/dL (1.7-2.3); Osmolality Calculated 290 mOsm/kg (285-295); Potassium 4.1 mmol/L (3.5-5.1); Sodium 137 mmol/L (136-145)
[2025-04-18 05:03] LABS: Creatinine Clr Calc Pharmacy 42.1260
--- NOTE | 2025-04-18 05:17 | PC.NURSE ---
RN spoke with dr. emmanuel regarding patient status. Patient is lethargic. vital signs stable on room air. per MD okay to hold morning sucralafate.
[2025-04-18 08:21] LABS: Hematocrit 27.8 % (37-53); Hemoglobin 8.50 g/dL (11.27-16.99)
[2025-04-18 08:41] LABS: Lactate (Lactic Acid level) 0.9 mmol/L (0.5-2.2)
--- NOTE | 2025-04-18 10:26 | P.PN_ITS ---
Subjective 2 Subjective: Intermittent hematochezia CTA showed possible source of bleeding from diverticulosis Hospitalist discussed with family who agreed on transfer for IR embolization Vitals/I&O/Wt Last Vital Signs Temp 98.1 F 04/18/25 04:00 Pulse 72 04/18/25 09:00 Resp 15 04/18/25 09:00 BP 133/74 04/18/25 09:00 Pulse Ox 100 04/18/25 09:00 O2 Del Method Room Air 04/18/25 04:00 Weight last 48 hrs Weight 170 lb Weight 176 lb 4 oz Weight 180 lb Physical Exam 2 Narrative: Chest: Unlabored breathing room air. No lymphadenopathy. Heart: Regular rate and rhythm. Abdomen: Soft, nontender, nondistended. No masses or lymphadenopathy. Data 04/18/25 17:50 04/18/25 03:15 A&P Assessment and plan 1. Hematochezia: Plan: 84-year-old male admitted with hematochezia. POA addressed goals of care with ER doctor and myself and agreed on no endoscopy or surgeries for Mr. Tolbert. Hematochezia got worse and hospitalist obtain a CTA which revealed possible source of bleeding is diverticulosis. Hospitalist discussed with family who agreed on transfer for IR embolization. Will remain available if there is a change in plans. PDMP PDMP Reviewed: Not Reviewed Attestations 2 Medical Necessity Statement*: N/A Coding Level of Care Code 33759 Diagnoses Hematochezia K92.1
[2025-04-18 11:56] LABS: Hematocrit 24.2 % (37-53); Hemoglobin 7.90 g/dL (11.27-16.99)
[2025-04-18] MEDS: levETIRAcetam 500 MG/100 ML PREMIX 400 MG IV (12:42)
--- NOTE | 2025-04-18 13:26 | PM.PN ---
Subjective Subjective: seen this morning had 1 BM this morning, bloody HB is stable at 830 Am 7.9 Vitals/I&O/Wt Last Vital Signs Temp 98.1 F 04/18/25 04:00 Pulse 69 04/18/25 12:30 Resp 18 04/18/25 12:30 BP 106/66 04/18/25 12:30 Pulse Ox 97 04/18/25 12:30 O2 Del Method Room Air 04/18/25 04:00 Weight last 48 hrs Weight 77.111 kg Weight 79.946 kg Weight 81.647 kg Physical Exam Narrative: General: Alert oriented x3, patient seen laying in bed appearing comfortable at this time HEENT: Normocephalic, atraumatic, EOMI, room air. Cardio: Regular rate rhythm, normal S1-S2, Respiratory: Clear to auscultation bilaterally no wheezing or rhonchi GI: Abdomen soft, nontender, nondistended, bowel sounds + Extremities: no edema, no cyanosis Data 04/18/25 11:50 04/18/25 03:15 A&P Assessment and plan 1. Hematochezia: 2. DNR (do not resuscitate): 3. Dementia: 4. Restless leg syndrome: 5. Hypertension: 6. Anxiety: Plan: #Hematochezia #Vascular Dementia - pt on locked dementia unit #Hypertension #HX Of CVA #Seizures #Dysphagia - monitor cbc q12h - monitor for hematochezia - consult gen surgery - continue keppra 500 BID - protonix 40 IV BID - Sucralfate BID - Hold lopressor - HTN stable at this time - Hold aspirin - continue risperidone 1 mg bID - transfuse for HB < 7 - hold donepizil - cr. 1.3, at baseline - Last colonoscopy 2022, multiple diverticula, no active bleed DNR/DNI 04/18/2025 protonix 40 IV BID sucralfate Hold lopressor risperidone 1 mg BID keppra 500 IV BID donepezil Hcl 10 mg Hb 7.90 Cr. 1.3, CTA abd pelvis: 1. Mild atherosclerosis. 2. Active intraluminal bleed lateral wall junction of the distal descending and proximal sigmoid colon associated with a diverticulum. 3. Marked diverticulosis of sigmoid colon and distal descending colon. Prominent amount semi solid stool and liquid stool sigmoid colon and rectum. 4. Moderate distension of the urinary bladder. 5. Ihdj-pm-gfvfqiim enlargement of the prostate with lobulation superior aspect. 6. Fatty change liver. Probable hepatic cyst.. 7. Probable small splenic cyst 8. Small fat containing umbilical and left inguinal hernia. 9. Degenerative changes lumbar spine. order 2 units RBC - Hb down to 7.9 at 11.50 await transfer to [facility], i will call again to see if bed is available. PDMP PDMP Reviewed: Not Reviewed Attestations Medical Necessity Statement*: Hematochezia, > 2 midnight stay Diagnoses Hematochezia K92.1 DNR (do not resuscitate) Z66 Dementia F03.90 Restless leg syndrome G25.81 Hypertension I10 Anxiety F41.9
--- NOTE | 2025-04-18 18:04 | PM.TDS ---
Transfer Summary Providers Date of Admission: 04/17/25 15:46 Date of Discharge/Transfer: 04/22/25 Attending Provider at Admission: Viky Sheppard MD Attending Provider at Transfer: Viky Sheppard MD Primary Care Provider: Allan Peñaloza DO Transfer Plans: Anticipated date of transfer: 04/22/25. Diagnoses at Discharge Discharge Diagnosis 1. Hematochezia: Reason for Visit Reason for Visit RECTAL BLEEDING Hospital Course Hospital Course Kelton Tolbert is a 84 year old male with past medical history of dementia anxiety hypertension CVA, seizures, hypertension, dysphagia, vascular dementia who is a longterm resident presented to the hospital for bright red blood per rectum. Patient is on aspirin at home. Denied any active complaints. Initial labs checked. Grossly within normal limits. He was about to be discharged home however had a large bloody bowel movement. At that point it was decided to admit the patient for observation. ER doctor spoke to family caregiver DPOA who said that in the past patient did not want any sort of aggressive interventions and if things did take a turn for the worst that required more aggressive interventions other than fluids medications or even blood products they would prefer to be made comfortable. At this time patient will be admitted for hematochezia. ER course: Hemoglobin fairly stable 11.4, BUN 26, creatinine 1.3. No nausea vomiting. I called pt's guardian to discuss patients care and left a voicemail for call back. Patient is confused and unable to provide any information at this time He has had 2 more bloody BM since ER arrival Got a call from nurse at around 7 PM stating that patient having significant amount of hematochezia. Heart rate of 68 bpm blood pressure 130/60 mmHg. Patient remains on room air. On review of chart it seems patient was admitted earlier in the evening with hematochezia. ER physician had spoken to patient's guardian who had requested only conservative treatment and no aggressive management. The admitting provider was not able to get in touch with the family/DPOA to confirm the conversation. This provider tried to call patient's guardian/son Mr. Daley and [id number] over the phone. Unfortunately could not get in touch and hence left a voice message. Received a call from Mr. Daley 20 minutes later. We discussed Kelton is having active hematochezia/bleeding per rectum currently. Discussed of treatment going forward. Options discussed were 1. As per the conversation between son and ER physician 2 make patient comfort care. #2. To continue treatment conservatively, checking hemoglobin every few hours, blood transfusion when patient becomes hemodynamically unstable or hemoglobin drops below 8 but that would not treat the underlying cause and there is a chance he would continue to bleed. 3. To proceed to find the cause of bleeding, possible treatment options after that would be a colonoscopy to find treatment, possible transfer for IR embolization, possible colectomy. Son verbalized understanding and states he would want everything to be done except colectomy/open abdomen surgery. He is even open to transfer patient to a tertiary center where IR embolization can be done. Again confirmed CODE STATUS of the patient. He confirms the patient is DNR/DNI and would not want any aggressive resuscitative measures including chest compressions or mechanical ventilation. Plan: Check hemoglobin every 6 hours and stat. Request for 2 units of blood. Blood to be transfused if systolic blood pressure drops below 100 mmHg, hemoglobin drops below 8. Transferred to ICU. Will consult surgery. Consulted on-call surgeon and informed of the conversation between this provider and patient's guardian/son. Surgeon requests GoLytely 40 mg one-time along with [address] bottle of mag citrate. CT of the abdomen and pelvis has been completed which shows an active diverticular bleeding around the descending colon and sigmoid colon. General surgery was updated regarding these findings. Patient has had a large bloody bowel movement. Hemoglobin at 9.4, down from 11.4 earlier on admission. Given the above findings on CTA, initiated transfer to [facility] for IR embolization. We are currently awaiting a bed for transfer. Currently patient is hemodynamically stable. Blood pressure 130/80. Heart rate of 92. He is being moved to ICU for close monitoring. Discussed updates with son, he is in agreement for transfer for IR embolization. Patient transferred to [facility] for further workup and management vitals stable at time of dc Physical Exam Narrative: General: Alert oriented x3, patient seen laying in bed appearing comfortable at this time HEENT: Normocephalic, atraumatic, EOMI, room air. Cardio: Regular rate rhythm, normal S1-S2, Respiratory: Clear to auscultation bilaterally no wheezing or rhonchi GI: Abdomen soft, nontender, nondistended, bowel sounds + Extremities: no edema, no cyanosis TS Data Studies Completed and Pending Completed Studies During Hospitalization Category Date Time Status CTA abdomen pelvis [CT angio abdomen pelvis 18383] Stat Cat Scan 04/17/25 19:33 Completed Laboratory Last Values WBC 8.66 10^3/uL (3.29-11.43) 04/18/25 17:50 RBC 3.06 10^6/uL (3.85-5.65) L 04/18/25 17:50 Hgb 8.90 g/dL (11.27-16.99) L 04/18/25 17:50 Hct 28.0 % (37-53) L 04/18/25 17:50 MCV 91.5 fl (82-101) 04/18/25 17:50 MCH 29.1 pg (27-33) 04/18/25 17:50 MCHC 31.8 g/dL (30-55) 04/18/25 17:50 RDW 13.5 % (12.1-15.1) 04/18/25 17:50 Plt Count 199 10^3/cmm (157-399) 04/18/25 17:50 MPV 10.3 fL (7.4-10.4) 04/18/25 17:50 Neut % (Auto) 77.9 % 04/18/25 17:50 Lymph % (Auto) 14.1 % 04/18/25 17:50 [place] % (Auto) 5.7 % 04/18/25 17:50 Eos % (Auto) 1.6 % 04/18/25 17:50 Baso % (Auto) 0.2 % 04/18/25 17:50 Neut # (Auto) 6.75 10^3/uL (1.8-7.7) 04/18/25 17:50 Lymph # (Auto) 1.2 10^3/uL (0.8-4.8) 04/18/25 17:50 [place] # (Auto) 0.5 10^3/uL (0.2-0.9) 04/18/25 17:50 Eos # (Auto) 0.1 10^3/uL (0.0-0.8) 04/18/25 17:50 Baso # (Auto) 0.0 10^3/uL (0.0-0.1) 04/18/25 17:50 Nucleated RBC % (auto) 0 % 04/18/25 17:50 Nucleated RBCs # 0.0 /100WBC 04/18/25 17:50 PT 13.20 SECONDS (12.1-14.9) 04/17/25 13:38 INR 0.94 (0.8-1.2) 04/17/25 13:38 APTT 25.3 SECONDS (23.9-36.7) 04/17/25 13:38 Sodium 137 mmol/L (136-145) 04/18/25 03:15 Potassium 4.1 mmol/L (3.5-5.1) 04/18/25 03:15 Chloride 107 mmol/L (98-107) 04/18/25 03:15 Carbon Dioxide 23 mmol/L (22-29) 04/18/25 03:15 Anion Gap 11.1 (5-19) 04/18/25 03:15 BUN 24 mg/dL (8-23) H 04/18/25 03:15 Creatinine 1.3 mg/dL (0.7-1.2) H 04/18/25 03:15 GFR Calculation Not Reportable 04/18/25 03:15 Glucose 125 mg/dL (65-115) H 04/18/25 03:15 Calculated Osmolality 290 mOsm/kg (285-295) 04/18/25 03:15 Lactate 0.9 mmol/L (0.5-2.2) 04/18/25 08:11 Calcium 8.9 mg/dL (8.5-10.5) 04/18/25 03:15 Magnesium 2.1 mg/dL (1.7-2.3) 04/18/25 03:15 Total Bilirubin 0.2 mg/dL (0.15-1.2) 04/17/25 15:51 AST 14 U/L (0-40) 04/17/25 15:51 ALT 11 U/L (0-41) 04/17/25 15:51 Alkaline Phosphatase 103 U/L (40-130) 04/17/25 15:51 Total Protein 6.7 g/dL (6.6-8.7) 04/17/25 15:51 Albumin 3.6 g/dL (3.5-5.2) 04/17/25 15:51 Globulin 3.1 g/dL (1.3-4.6) 04/17/25 15:51 Blood Type O Positive 04/17/25 15:51 Rho(D) Type Rh positive 04/17/25 15:51 Antibody Screen Negative 04/17/25 15:51 Crossmatch See Detail 04/17/25 15:51 Radiology Impressions Abdomen/Pelvis CTA 04/17/25 19:33 IMPRESSION: 1. Mild atherosclerosis. 2. Active intraluminal bleed lateral wall junction of the distal descending and proximal sigmoid colon associated with a diverticulum. 3. Marked diverticulosis of sigmoid colon and distal descending colon. Prominent amount semi solid stool and liquid stool sigmoid colon and rectum. 4. Moderate distension of the urinary bladder. 5. [id number] enlargement of the prostate with lobulation superior aspect. 6. Fatty change liver. Probable hepatic cyst.. 7. Probable small splenic cyst 8. Small fat containing umbilical and left inguinal hernia. 9. Degenerative changes lumbar spine. ADDENDUM: 04/17/25 [id number] COMMENT: THIS REPORT CONTAINS FINDINGS THAT MAY BE CRITICAL TO PATIENT CARE. The exam findings were verbally communicated by me to EDEN BORREGO via telephone conference at 11:15 PM CDT on 04/17/2025. The findings were acknowledged and understood. ADDENDUM: 04/18/[address] Yost received oral report,not Dr. Borrego. Recent Clincial Data Last Vital Signs Temp 98.6 F 04/18/25 14:10 Pulse 94 04/18/25 17:00 Resp 19 H 04/18/25 17:00 BP 139/75 04/18/25 17:00 Pulse Ox 98 04/18/25 16:30 O2 Del Method Room Air 04/18/25 04:00 Vitals Last Vital Signs Temp 98.6 F 04/18/25 14:10 Pulse 94 04/18/25 17:00 Resp 19 H 04/18/25 17:00 BP 139/75 04/18/25 17:00 Pulse Ox 98 04/18/25 16:30 O2 Del Method Room Air 04/18/25 04:00 TS Medications Medications Discontinued Medications Alprazolam (Alprazolam 0.5 Mg Tablet) 0.25 mg PO BID PRN PRN Reason: Agitation Bisacodyl (Bisacodyl 5 Mg Tablet) 40 mg PO NOW ONE Stop: 04/17/25 20:05 Last Admin: 04/17/25 21:39 Dose: Not Given Donepezil HCl (Donepezil 5 Mg Tablet) 10 mg PO BEDTIME@21 [facility] Last Admin: 04/17/25 21:48 Dose: 10 mg Sodium Chloride (Sodium Chloride 0.9%) 1,000 mls @ 75 mls/hr IV .[id number] [facility] Last Admin: 04/18/25 15:49 Dose: 75 mls/hr Levetiracetam (Keppra) 500 mg in 100 mls @ 400 mls/hr IV Q12H [facility] Last Admin: 04/18/25 12:42 Dose: 400 mls/hr Sodium Chloride (Sodium Chloride 0.9% (100 Ml)) Confirm Administered Dose 100 mls @ as directed .ROUTE .STK-MED ONE Stop: 04/18/25 13:40 Iohexol (Iohexol 350 Mg/Ml 500 Ml Btl (Per Ml)) 0 ml IV ONCE ONE Stop: 04/17/25 21:14 Last Admin: 04/17/25 21:13 Dose: 100 ml Levetiracetam (Levetiracetam 500 Mg Tablet) 500 mg PO BID@07,19 [facility] Last Admin: 04/17/25 21:48 Dose: 500 mg Magnesium Citrate (Magnesium Citrate Btl 296 Ml) 296 ml PO ONCE ONE Stop: 04/17/25 20:05 Last Admin: 04/17/25 21:39 Dose: Not Given Ondansetron HCl (Ondansetron 2 Mg/Ml Sdv 2 Ml) 4 mg IVP Q8H PRN PRN Reason: vomiting, or N/V if npo Pantoprazole Sodium (Pantoprazole 40 Mg Sdv) 80 mg IVP ONCE ONE Stop: 04/17/25 15:11 Last Admin: 04/17/25 15:55 Dose: 80 mg Pantoprazole Sodium (Pantoprazole 40 Mg Sdv) 40 mg IVP Q12H [facility] Last Admin: 04/18/25 15:49 Dose: 40 mg Risperidone (Risperidone 1 Mg Tablet) 0.5 mg PO DAILY [facility] Last Admin: 04/18/25 09:27 Dose: Not Given Risperidone (Risperidone 1 Mg Tablet) 1 mg PO BID [facility] Last Admin: 04/18/25 18:03 Dose: 1 mg Sodium Chloride (Sodium Chloride 0.9% 100 Ml Bag) 50 ml IV PRN PRN PRN Reason: Blood transfusion prime and flush Stop: 04/19/25 12:34 Last Admin: 04/18/25 15:49 Dose: 50 ml Sucralfate (Sucralfate 1 Gm Tablet) 1 gm PO AC&BEDTIME [facility]ONNIE Last Admin: 04/18/25 18:03 Dose: 1 gm Allergies No Known Allergies Allergy (Verified 07/21/21 05:58) Home Medications acetaminophen 325 mg tablet (Tylenol) 650 mg PO Q4H PRN Pain 06/12/22 [History Confirmed 04/17/25] amlodipine 10 mg tablet 10 mg PO DAILY@07 06/12/22 [History Confirmed 04/17/25] magnesium hydroxide 400 mg/5 mL oral suspension (Milk of Magnesia) 30 ml PO DAILY PRN Constipation 06/12/22 [History Confirmed 04/17/25] bisacodyl 10 mg rectal suppository (Dulcolax (bisacodyl)) 10 mg MD DAILY PRN Constipation 12/04/23 [History Confirmed 04/17/25] donepezil 10 mg tablet 10 mg PO BEDTIME@21 12/04/23 [History Confirmed 04/17/25] hydrocortisone 2.5 % topical kit See Rx Instructions .Route .COMPLEX 12/04/23 [History Confirmed 04/17/25] levetiracetam 500 mg tablet (Keppra) 500 mg PO BID@,12/04/23 [History Confirmed 04/17/25] metoprolol tartrate 25 mg tablet 12.5 mg PO BID@,12/04/23 [History Confirmed 04/17/25] pramipexole 0.25 mg tablet 0.25 mg PO BEDTIME@12/04/23 [History Confirmed 04/17/25] risperidone 0.5 mg tablet (Risperdal) 0.5 mg PO DAILY 12/04/23 [History Confirmed 04/17/25] tramadol 50 mg tablet See Rx Instructions .Route .COMPLEX PRN Pain 12/04/23 [History Confirmed 04/17/25] triamcinolone acetonide 0.1 % topical cream See Rx Instructions .Route .COMPLEX 12/04/23 [History Confirmed 04/17/25] alprazolam 0.25 mg tablet (Xanax) 0.25 mg PO BID PRN Agitation 08/20/24 [History Confirmed 04/17/25] emollient (Vanicream topical) 1 applic topical BID dry skin 08/20/24 [History Confirmed 04/17/25] ketoconazole 2 % topical cream 1 applic topical DAILY to face 08/20/24 [History Confirmed 04/17/25] mupirocin 2 % topical ointment 1 applic topical BID 08/20/24 [History Confirmed 04/17/25] tacrolimus 0.1 % in vehicle base no.238 topical cream See Rx Instructions .Route .COMPLEX 08/20/24 [History Confirmed 04/17/25] aspirin 81 mg tablet,delayed release 81 mg PO DAILY 09/03/24 [History Confirmed 04/17/25] polyethylene glycol 3350 17 gram oral powder packet (Miralax) 17 g PO QAM 12/07/24 [History Confirmed 04/17/25] risperidone 1 mg tablet (Risperdal) 1 mg PO BID 12/07/24 [History Confirmed 04/17/25] tramadol 50 mg tablet 50 mg PO BID moderate to severe pain 12/07/24 [History Confirmed 04/17/25] bisacodyl 5 mg tablet 5 mg PO DAILY 04/17/25 [History Confirmed 04/17/25] bisacodyl 5 mg tablet,delayed release (Dulcolax (bisacodyl)) 10 mg PO DAILY PRN Constipation 04/17/25 [History Confirmed 04/17/25] guaifenesin 100 mg/5 mL oral liquid 200 mg PO Q4H PRN Cough 04/17/25 [History Confirmed 04/17/25] Discharge Plan Discharge Patient Disposition: Xfer Short-Term Hosp Condition: Stable Prescriptions: No Action levetiracetam [Keppra] 500 mg Tablet 500 mg PO BID@07,19 donepezil 10 mg Tablet 10 mg PO BEDTIME@21 tramadol [Ultram] 50 mg Tablet See Rx Instructions .ROUTE .COMPLEX PRN (Reason: Pain) Rx Instructions: Give 1 tablet by mouth every 24 hours as needed for moderate to severe pain. Must have 6 hours in between scheduled dose. triamcinolone acetonide 0.1 % Cream See Rx Instructions .ROUTE .COMPLEX Rx Instructions: Apply to thickned areas of plaque topically twice daily every month starting on the for 14 days for rash areas on arms, legs and low back only. Not to be used more than 2 weeks a month. bisacodyl [Dulcolax (bisacodyl)] 10 mg Suppository 10 mg MD DAILY PRN (Reason: Constipation) pramipexole [Mirapex] 0.25 mg Tablet 0.25 mg PO BEDTIME@19 risperidone [Risperdal] 0.5 mg Tablet 0.5 mg PO DAILY hydrocortisone 2.5 % Kit See Rx Instructions .ROUTE .COMPLEX Rx Instructions: APPLY TO NAVAL AREA BID EVERY MONTH STARTING ON THE FOR 14 DAYS FOR DRY CRUSTY AREAS ON SKIN-APPLY TOPICALLY TO NAVAL PLAQUE BID DAILY BUT NOT MORE THAN 2 WEEKS IN 1 MONTH metoprolol tartrate 25 mg tablet 12.5 mg PO BID@ alprazolam [Xanax] 0.25 mg Tablet 0.25 mg PO BID PRN (Reason: Agitation) mupirocin 2 % Ointment 1 applic TOPICAL BID ketoconazole 2 % Cream 1 applic TOPICAL DAILY tacrolimus-vehicle base no.238 0.1 % Cream See Rx Instructions .ROUTE .COMPLEX Rx Instructions: Apply to plaques on right first finger topically twice daily every 2 weeks on Saturday, 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 emollient [Vanicream] Cream 1 applic topical BID Rx Instructions: Apply to entire body topically twice daily for dry skin. polyethylene glycol 3350 [Miralax] 17 gram Powder In Packet 17 g PO QAM risperidone [Risperdal] 1 mg Tablet 1 mg PO BID tramadol 50 mg Tablet 50 mg PO BID guaifenesin 100 mg/5 mL Liquid 200 mg PO Q4H PRN (Reason: Cough) bisacodyl [Dulcolax (bisacodyl)] 5 mg Tablet,Delayed Release (Dr/Ec) 10 mg PO DAILY PRN (Reason: Constipation) bisacodyl 5 mg Tablet 5 mg PO DAILY acetaminophen [Tylenol] 325 mg Tablet 650 mg PO Q4H PRN (Reason: Pain) magnesium hydroxide [Milk of Magnesia] 400 mg/5 mL Suspension 30 ml PO DAILY PRN (Reason: Constipation) amlodipine 10 mg Tablet 10 mg PO DAILY@07 Rx Instructions: hold for sbp of 100 or pulse of less than 60 aspirin [Aspir-81] 81 mg Tablet,Delayed Release (Dr/Ec) 81 mg PO DAILY Referrals: Allan Peñaloza DO [Primary Care Provider, Internal Medicine] Discharge Diet: Usual diet Discharge Activity: Increase activity as tolerated Patient Instructions: Rectal Bleeding (ED), Opioid Safety, Pain Management, Patient Portal & Nisha Instructions Activity Restrictions/Additional Instructions: Thank you for choosing [facility] for your healthcare needs today. You have been screened and evaluated and felt safe for discharge. Health conditions do change or evolve sometimes and as such it is important that you follow up with your Primary Doctor to be re checked, 3-5 days is a general good time frame for follow up. You are always welcome to return to the ED for re assessment if your symptoms are worsening or you have new concerns Transfer Attestations Time Spent in Transfer Care: greater than 30 min Status at Transfer: Cognitive status at transfer: moderately impaired cognition; Behavioral status at transfer: can be uncooperative; Quality Metrics Clinical Quality Measures [ No reported AMI, CVA or VTE this stay] Coding Level of Care Code Acute Code for Chg Fwd Diagnoses Hematochezia K92.1
[2025-04-18 18:07] LABS: Hematocrit 28.0 % (37-53); Hemoglobin 8.90 g/dL (11.27-16.99); Mean Corpuscular HGB Conc 31.8 g/dL (30-55); Mean Corpuscular Hemoglobin 29.1 pg (27-33); Mean Corpuscular Volume 91.5 fl (82-101); Nucleated Red Blood Cells % 0 %; Platelet Count 199 10^3/cmm (157-399); Red Blood Count 3.06 10^6/uL (3.85-5.65); White Blood Count 8.66 10^3/uL (3.29-11.43)
--- NOTE | 2025-04-18 19:04 | PC.NURSE ---
Pt was transferred to EMS at 1900. Patient packet was given to EMS staff and patients son was called.
== END 2025-04-18 19:03 | disposition short-term general hospital (02) | DRG 378 ==
LOC: ER 15:47 → CSU 17:38 → ICU 04-18 00:45
PROVIDERS: Student in an Organized Health Care Education/Training Program; Admitting Provider Internal Medicine; Emergency Provider Emergency Medicine; PCP Internal Medicine; Visit Provider Internal Medicine
DX: K92.1 Melena (principal); F01.54 Vascular dementia, unspecified severity, with anxiety; I10 Essential (primary) hypertension; R13.10 Dysphagia, unspecified; Z66 Do not resuscitate; G25.81 Restless legs syndrome; R56.9 Unspecified convulsions; Z79.82 Long term (current) use of aspirin; Z86.73 Personal history of transient ischemic attack (TIA), and cerebral infarction without residual deficits
CPT/HCPCS: 36415; 36430; 74174; 80048; 80053; 83605; 83735; 85014; 85018; 85025; 85610; 85730; 86850; 86900; 86920; 96374; 99285; J1953; J2470; J7030; J9999; P9016